=== PATIENT | female | born 1980 | race Caucasian/White ===

== ENCOUNTER 2020-09-04 14:41 | Emergency (ER) | payer MEDICAID, SELFPAY ==
[2020-09-04 15:03] VITALS: BP 127/85; PULSE 72; RESP 18; TEMP 36; O2SAT 98; BMI 27.3
[2020-09-04 16:58] VITALS: BP 116/86; PULSE 86; RESP 18; TEMP 36.6; O2SAT 98; BMI 27.3
[2020-09-04 17:27] VITALS: BP 154/83; PULSE 88; RESP 17; TEMP 36.8; O2SAT 100
--- NOTE | 2020-09-04 18:21 | ED.NEUROSD ---
HPI - Neuro Symptoms/Deficit General Chief Complaint: Neuro Symptoms/Deficit Stated Complaint: ARM NUMBNESS,HBP Time Seen by Provider: 09/04/20 18:21 Source: patient Mode of arrival: ambulatory Limitations: no limitations History of Present Illness HPI Narrative: patient presents with left-sided arm numbness and tingling, is intermittent, and has been occurring over the past year and a half. She called her primary care physician who asked her to come into the emergency department to be evaluated. She is asking for CT scan of her head. She does not describe any headaches, dizziness, lightheadedness, loss of balance, chest pain or pressure, palpitations, shortness of breath, loss of balance, abdominal pain, abdominal distention, dysuria, hematuria, indication of cauda equina, edema, fevers and chills. Onset (ago): year(s) Location: left arm History of same: Yes Severity: mild Quality: weak, numb and tingling Relieving factors: rest Exacerbating factors: none Context: sudden onset On Anticoagulants: No Associated symptoms: denies other symptoms Related Data Allergies Allergy/AdvReac Type Severity Reaction Status Date / Time No Known Allergies Allergy Unverified 08/01/20 16:54 Review of Systems Review of Systems: Constitutional: No Weight loss, No Fever, No Chills, No Night Sweats, No Fatigue, No Malaise ENT/Mouth: No Hearing loss, No Ear Pain, No Nasal Congestion, No Sinus Pain, No Hoarseness, No sore throat, No Rhinorrhea, No Swallowing Difficulty Eyes: No Eye Pain, No Swelling, No Redness, No Foreign Body, No Discharge, No Vision Changes Cardiovascular: No Chest Pain, No SOB, No Dyspnea on Exertion, No Orthopnea, No Edema, No Palpitations Respiratory: No Cough, No Sputum, No Wheezing, No Smoke Exposure, No Dyspnea Gastrointestinal: No Nausea, No Vomiting, No Diarrhea, No Constipation, No abdominal Pain, No Hematochezia, No Melena Genitourinary: no irregular bleeding, No Dysuria, No Urinary Frequency, No Hematuria, No Urinary Incontinence, No Urgency, No Flank Pain, No Urinary Flow Changes, No Hesitancy Musculoskeletal: No joint pain, No Myalgias, No Joint Swelling Skin: No Skin Lesions, No rash Neuro: Positive numbness and tingling to left arm, No Loss of Consciousness, No Dizziness, No Headache Psych: No Anxiety/Panic, No Depression, No SI/HI/AH/VH, No Social Issues, Heme/Lymph: No Bruising, No Bleeding,No Lymphadenopathy Endocrine: No Polyuria, No Polydipsia, No Temperature Intolerance [facility] Past Medical History Attestation statement: The following information was validated with the patient. Medical History Patient denies significant medical history Social History Social History Alcohol intake: never Smoking Status: Never smoker Use of substances other than those prescribed or required for medical reasons: No Advance Directives: No Advance Directives Information Provided: Yes Physical Exam Vital Signs: Vital Signs: Vital Signs Temp Pulse Resp BP Pulse Ox 09/04/20 17:27 98.3 F 88 17 154/83 H 100 09/04/20 16:58 97.8 F 86 18 116/86 98 09/04/20 15:03 96.8 F 72 18 127/85 98 Body Mass Index 27.3 Appearance: Alert. Oriented X3. No acute distress. Head: Normal external exam. Normocephalic. Atraumatic. No Walton signs noted. No raccoon eyes noted Eyes: PERRLA. EOMI. Conjunctiva and sclera normal. Eyelids normal. ENT: TM's Normal. Pharynx normal. Uvula midline. Moist mucous membranes. No trismus noted. No drooling noted. No muffled voice noted. Neck: Normal inspection. Neck supple. No adenopathy. Thyroid Normal. No meningeal signs. No neck mass noted. CVS: Normal heart rate and rhythm. Heart sound normal. No murmurs noted. Pulses equal to all extremities. Respiratory: No respiratory distress. Painless inspiration. Breath sounds normal. No wheezes/rales/rhonchi noted. Chest nontender. No accessory muscle usage noted or decreased air movement noted. Abdomen: Soft and nontender. Bowel sounds normal in all 4 quadrants. No distention noted. No organomegaly noted. No visible injury noted. Back: No CVA tenderness. Full range of motion noted. Skin: Skin warm and dry. Normal skin color. Normal skin turgor. No rashes/lesions/lacerations noted. Extremities: No lower extremity edema. Extremities exhibit normal range of motion. Extremities nontender. Neuro: cranial nerves 2-12 intact, no focal neural deficits, strength 5/5 to all extremities, No motor deficit. No sensory deficit. Reflexes normal. Course Course Course Narrative: patient presents for left arm tingling, is requesting a CT scan. Comprehensive focal neural deficit and NIH stroke scale completed. Patient does not have any focal neural deficits, cranial nerves 2-12 intact, NIH stroke scale is negative. She has been having intermittent left arm numbness and tingling for a year and a half or longer. She did have a full cardiac workup several months ago where they did not find any abnormal rhythms or ACS at that time. She is not complaining of chest pain or pressure or palpitations. At this time, as her physical exam is 100% normal, symptoms have 100% resolved and she has had the symptoms over the past year and a half I do not feel that CT scan is emergent. Plan of care is to have patient discharged home and to have primary care physician order tests that he or she requests on an outpatient basis. Detailed description regarding risks and benefits of CT scan, radiation exposure, and medical necessity discussed with patient. Patient verbalized understanding of and agrees to plan of care to discharge home. historic interpreter utilized for all correspondence. Google translate utilized for discharge instructions. MDM - Neuro Symptoms/Deficit MDM Narrative Medical decision making narrative: Paresthesia Differential Diagnosis Differential diagnosis: Likely carpal tunnel syndrome Medical Records Attestation: I reviewed the patient's medical records. NIH Stroke Scale Internal: Initial- Upon Arrival Level of Consciousness: Alert Level of Consciousness Questions: Answers both questions correctly Level of Consciousness Commands: Performs both tasks correctly Best Gaze: Normal Visual: No visual loss Facial Palsy: Normal Motor Arm (Right): No drift Motor Arm (Left): No drift Motor Leg (Right): No drift Motor Leg (Left): No drift Limb Ataxia: Absent Sensory: Normal Best Language: No aphasia Dysarthia: Normal Extinction and Inattention: No abnormality Score: 0 Discharge Plan Discharge Clinical Impression: Paresthesia and pain of left extremity Patient Disposition: Home, Self-Care Instructions: Paresthesia (ED) Additional Instructions: you were evaluated for numbness and tingling to the left arm. This has been an ongoing condition for over 1 year. Please follow-up with her primary care for a CT scan of the head and neck as an outpatient. Focal neural exam negative, NIH stroke scale is negative. Thank you for choosing this emergency department for evaluation. Please follow-up with primary care physician as needed. Return to the emergency department for any new, concerning, or worsening symptoms. Interventions: ED Discharge Assessment Last Done: 09/04/20 18:32 Discharge Date/Time: 09/04/20 18:40
== END 2020-09-04 18:40 | disposition home or self-care (01) ==
PROVIDERS: Emergency Provider Emergency Medicine; PCP Nurse Practitioner Family
DX: R20.2 Paresthesia of skin (principal); M79.602 Pain in left arm
CPT/HCPCS: 99283; 99284

== ENCOUNTER 2020-10-24 14:15 | Outpatient (REF) | payer MEDICAID, SELFPAY | END 2020-10-24 14:16 | disposition home or self-care (01) | LOC: HO.LAB 14:15 | PROVIDERS: Visit Provider Obstetrics & Gynecology | DX: D06.9 Carcinoma in situ of cervix, unspecified (principal) | CPT/HCPCS: 88142; 88305; 99212 ==

== ENCOUNTER → 2020-11-07 08:53 | Outpatient (BNVA) | payer MEDICAID, SELFPAY | PROVIDERS: Visit Provider Obstetrics & Gynecology | DX: Z76.89 Persons encountering health services in other specified circumstances (principal) ==

== ENCOUNTER 2020-12-05 13:46 | Outpatient (REF) | payer MEDICAID, SELFPAY ==
--- NOTE | 2020-12-05 | MM_ITS ---
EXAMINATION: MM SCREENING DIGITAL BREAST TOMOSYNTHESIS, BILATERAL CLINICAL INFORMATION: Screening. Asymptomatic. No prior breast imaging. Age 40. No known family history breast cancer. The lifetime risk of breast cancer based on the Tyrer-Cuzick Model is 7%. COMPARISON: None (current study represents initial baseline exam). TECHNIQUE: Digital breast tomosynthesis is performed in both the craniocaudal and mediolateral oblique views along with computer-aided detection (CAD). Synthesized 2D images are generated from the tomosynthesis. FINDINGS: There are scattered areas of fibroglandular density (ACR BI-RADS breast composition Category b). There are no significant masses, abnormal calcifications, or other abnormalities. There is a probable small intramammary node mid 8:30 o'clock right breast. The bilateral axilla and skin contours are unremarkable. MM/MM tomosynthesis screening BI IMPRESSION: No mammographic evidence of malignancy. ASSESSMENT: BI-RADS 2: Benign RECOMMENDATION: Routine annual mammography screening. This patient's information was entered into a reminder system with a target due date for their next mammogram.
== END 2020-12-05 13:47 | disposition home or self-care (01) ==
LOC: HO.MAMMO 13:46
PROVIDERS: PCP Nurse Practitioner Family; Visit Provider Nurse Practitioner Family
DX: Z12.31 Encounter for screening mammogram for malignant neoplasm of breast (principal)
CPT/HCPCS: 77063; 77067

== ENCOUNTER 2020-12-12 13:49 | Outpatient (REF) | payer MEDICAID, SELFPAY | END 2020-12-12 13:50 | disposition home or self-care (01) | LOC: HO.LAB 13:49 | PROVIDERS: Visit Provider Internal Medicine | DX: Z20.822 Contact with and (suspected) exposure to COVID-19 (principal) | CPT/HCPCS: 36415; C9803; U0003 ==

== ENCOUNTER 2021-07-19 10:03 | Emergency (ER) | payer MEDICAID, SELFPAY ==
[2021-07-19 10:16] VITALS: BP 148/83; PULSE 109; RESP 16; TEMP 36.9; O2SAT 97; BMI 26.8
--- NOTE | 2021-07-19 12:09 | ED.URI ---
HPI - URI/Sore Throat General Chief Complaint: General Medical Stated Complaint: SWOLLEN GLANDS Time Seen by Provider: 07/19/21 11:42 Source: patient Mode of arrival: ambulatory Limitations: no limitations History of Present Illness MD elicited complaint: sore throat Onset (ago): day(s) (Since yesterday) Consistency: constant and progressively worsening Severity: moderate Able to tolerate fluids by mouth: Yes Exacerbating factors: swallowing Relieving factors: nothing Associated symptoms: chills and ear pain (Right ear pain) Treatments prior to arrival: none Related Data Previous Rx's Medication Instructions Recorded acetaminophen 300 mg-codeine 30 mg 1 tab PO Q8H PRN #10 tab 07/19/21 tablet amoxicillin 875 mg-potassium 1 tab PO BID 10 Days #20 tab 07/19/21 clavulanate 125 mg tablet (Augmentin) dexamethasone 6 mg tablet 12 mg PO DAILY #2 tab 07/19/21 (Decadron) Allergies Allergy/AdvReac Type Severity Reaction Status Date / Time No Known Allergies Allergy Verified 11/07/20 08:54 Review of Systems Review of Systems: Constitutional : No Fever, No Chills, No fatigue, No Malaise ENT/Mouth : Positive right ear pain and sore throat, No runny nose Eyes: No Discharge Cardiovascular : No Chest Pain, No SOB Respiratory : No Cough, No Sputum, No Wheezing, No Smoke Exposure, No Dyspnea Gastrointestinal : No Nausea, No Vomiting, No Diarrhea Genitourinary : No irregular bleeding, No Dysuria, No Urinary Frequency, No Hematuria, No Urinary Incontinence, No Urgency, No Flank Pain, Musculoskeletal : No Myalgia Skin : No rash Neuro : No Headache Yes all other systems are reviewed and are negative [facility] Past Medical History Attestation statement: The following information was validated with the patient. Medical History Patient denies significant medical history Family History Family History Sister Ovarian cancer Social History Social History Alcohol intake: never Advance Directives: No Advance Directives Information Provided: No Patient : No Sexual orientation: Straight/Heterosexual Gender identity: Female Physical Exam Vital Signs: Vital Signs: Last Vital Signs Temp 98.5 F 07/19/21 10:16 Pulse 109 H 07/19/21 10:16 Resp 16 07/19/21 10:16 BP 148/83 H 07/19/21 10:16 Pulse Ox 97 07/19/21 10:16 Body Mass Index 26.8 vital signs have been reviewed as normal and appeared to be correct. Blood pressure normal. Heart rate tachycardic at 109. Respiration rate normal. Temperature normal. Oxygen saturation normal. Appearance: Alert. Oriented X3. No acute distress. Head: Normal external exam. Normocephalic. Atraumatic. Eyes: PERRLA. EOMI. Conjunctiva and sclera normal. Eyelids normal. ENT: EAC normal. Right tympanic membrane mildly erythematous and bulging with fluid in the posterior aspect of the tympanic membranes. Left tympanic membrane within normal limits. Posterior pharynx erythematous with scattered exudate bilaterally on both tonsils. Both tonsils are inflamed. Uvula midline. Moist mucous membranes. No trismus noted. No drooling noted. No muffled voice noted. Not consistent with peritonsillar abscess/pharyngeal abscess/dental abscess. Neck: Normal inspection. Neck supple. FROM. Bilateral mild cervical lymphadenopathy. Thyroid Normal. No meningeal signs. No neck mass noted. CVS: Normal heart rate and rhythm. Heart sound normal. Pulses normal throughout. No murmurs/rales/gallops. Respiratory: No respiratory distress. Painless inspiration. Breath sounds normal. No wheezes/rales/rhonchi noted. Chest nontender. No accessory muscle usage noted or decreased air movement noted. Back: Full range of motion noted. No rashes/lesion/induration/fluctuance or signs of infection noted. Skin: Skin warm and dry. Normal skin color. Normal skin turgor. No rashes/lesions/lacerations noted. Extremities: No lower extremity edema. Extremities exhibit normal range of motion. Extremities nontender. Neuro: Oriented X 3. No motor deficit. No sensory deficit. Reflexes normal. Normal steady gait. No focal neuro deficits noted. Course Course Course Narrative: 41-year-old female presenting to the ED with complaints of right-sided sore throat worse with swallowing which radiates to her right ear. Denies recent travel or sick contacts. Is not vaccinated for COVID. On exam patient noted to have exudate and erythema to bilateral tonsils. Uvula is midline. With mild bilateral cervical lymphadenopathy. No trismus or drooling noted. Patient is tolerating secretions well. Not consistent with peritonsillar abscess/pharyngeal abscess/dental abscess. Rapid strep obtained although came out negative although will treat due to patient's symptoms and exam. COVID swab along with RSV and flu are still pending will DC home with treatment for bacterial pharyngitis and will call her back by today with negative or positive results for COVID. Patient understands agrees with this plan. MDM - URI/Sore Throat Medical Records Attestation: I reviewed the patient's medical records. Lab Data Attestation: I reviewed the patient's lab results. Labs: Lab Results 07/19/21 07/19/21 Range/Units 11:58 11:58 Coronavirus (PCR) NEGATIVE (Negative) Influenza Type A (PCR) NEGATIVE (Negative) Influenza Type B (PCR) NEGATIVE (Negative) RSV RNA Qual (PCR) NEGATIVE (Negative) S. pyogenes GrpA MATT Negative (Negative) Discharge Plan Discharge Clinical Impression: Acute bacterial pharyngitis Patient Disposition: Home, Self-Care Instructions: Pharyngitis (ED) Additional Instructions: Bas?ndonos en mariel s?ntomas e historial, hemos enviado un COVID-19. Aunque leal RESULTADO EST? PENDIENTE en sarahi momento. Los RESULTADOS deben regresar dentro de las 72 horas. En sarahi momento se le contactar? con resultados NEGATIVOS O POSITIVOS. -Por favor, espere hasta que nos pongamos en contacto con usted para obtener mariel resultados. Si leal COVID positivo, deber? permanecer sin trabajo cricket al menos 7-10 d?as Based on your symptoms and history we have sent a COVID-19. Although your RESULT IS PENDING at this time. RESULTS should return within 72 hours. At this time you will be contacted with either NEGATIVE OR POSITIVE results. -Please wait until we contact you for your results. If your COVID positive you will need to stay out of work for at least 7-10 days Prescriptions: New amoxicillin-pot clavulanate [Augmentin] 875-125 mg tablet 1 tab PO BID 10 Days Qty: 20 RF: 0 dexamethasone [Decadron] 6 mg tablet 12 mg PO DAILY Qty: 2 RF: 0 acetaminophen-codeine 300-30 mg tablet 1 tab PO Q8H PRN (Reason: pain) Qty: 10 RF: 0 Referrals: [facility] [Primary Care Provider] - 2 days (your pcp) Stand Alone Forms: Work/School Release Interventions: ED Discharge Assessment Last Done: 07/19/21 12:47 Discharge Date/Time: 07/19/21 12:47 Print Language: Bulgarian
[2021-07-19 12:12] LABS: IDNOW Serial# 9DD0AD1C; Strep A Nucleic Acid Negative (Negative)
[2021-07-19 12:47] LABS: Influenza A PCR NEGATIVE (Negative); Influenza B PCR NEGATIVE (Negative); Resp Syncy Virus RNA Qual PCR NEGATIVE (Negative); SARS COV2 PCR INHOUSE NEGATIVE (Negative)
== END 2021-07-19 12:47 | disposition home or self-care (01) ==
PROVIDERS: Physician Assistant Medical; Emergency Provider Student in an Organized Health Care Education/Training Program
DX: J02.9 Acute pharyngitis, unspecified (principal); R00.0 Tachycardia, unspecified; Z20.822 Contact with and (suspected) exposure to COVID-19
CPT/HCPCS: 0241U; 36415; 87651; 99283

== ENCOUNTER 2022-07-02 08:59 | Emergency (ER) | payer MEDICAID, SELFPAY ==
[2022-07-02 09:21] VITALS: BP 134/77; PULSE 76; RESP 16; TEMP 36.6; O2SAT 98; BMI 28.5
--- NOTE | 2022-07-02 09:25 | ED_ITS ---
HPI - Extremity Problem General Chief complaint: Extremity Injury, Upper Stated complaint: L shoulder pain Time Seen by Provider: 07/02/22 09:25 Source: patient Mode of arrival: ambulatory Limitations: no limitations History of Present Illness HPI Narrative: 42-year-old female who presents emergency department for evaluation of left shoulder pain and difficulty lifting her left arm over her head secondary to pain. The patient states that yesterday morning she woke up and had some pain in her left shoulder. She states that she has been running and riding a bike and she is not sure if she injured her shoulder but she denied any trauma. 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 She states that she was having difficulty using her arm but was able who finish her shift. This morning, when she woke up she had pain in her left shoulder. She states she has no pain unless she moves her shoulder, the pain is then sharp and 8/10. She states that she had difficulty lifting her arm above her head to calm her hair secondary to the pain. She denied any numbness or weakness of her left arm. MD Complaint: extremity pain Onset (ago): day(s) (2) Pain Consistency: other (Only present with movement) Location: left and upper extremity Severity scale (1-10): 8 Quality: aching Radiation: none Relieving factors: nothing Exacerbating factors: range of motion Associated symptoms: denies other symptoms Related Data Previous Rx's Medication Instructions Recorded acetaminophen 300 mg-codeine 30 mg 1 tab PO Q8H PRN pain #10 tabs 07/19/21 tablet amoxicillin 875 mg-potassium 1 tab PO BID 10 days #20 tabs 07/19/21 clavulanate 125 mg tablet (Augmentin) dexamethasone 6 mg tablet 12 mg PO DAILY Inflammation #2 tabs 07/19/21 (Decadron) acetaminophen 500 mg tablet 1,000 mg PO Q6H PRN fever or pain 07/02/22 (Tylenol Extra Strength) #20 tabs ibuprofen 600 mg tablet 600 mg PO Q6H PRN pain #30 tabs 07/02/22 Allergies Allergy/AdvReac Type Severity Reaction Status Date / Time No Known Allergies Allergy Verified 11/07/20 08:54 [facility] Past Medical History Medical History Patient denies significant medical history Family History Family History Sister Ovarian cancer Social History Social History Alcohol intake: never Advance Directives: No Advance Directives Information Provided: No Sexual orientation: Straight/Heterosexual Gender identity: Female Physical Exam Vital Signs: Vital Signs: Last Vital Signs Temp 97.9 F 07/02/22 09:21 Pulse 76 07/02/22 09:21 Resp 16 07/02/22 09:21 BP 134/77 07/02/22 09:21 Pulse Ox 98 07/02/22 09:21 O2 Del Method 07/02/22 09:21 BMI result Body Mass Index 28.5 Discharge Plan Discharge Clinical Impression: Acute pain of left shoulder, Left shoulder tendinitis Patient Disposition: Home, Self-Care Instructions: Rotator Cuff Tendinitis (ED) Additional Instructions: Left shoulder rotator cuff tendinitis Discharge Instructions: Take Motrin (ibuprofen) 600 mg pills, 1 pills every 6 hours as needed for pain. Take Tylenol (acetaminophen) 500 mg pills, 2 pills every 6 hours as needed for pain. Apply ice for 15 minutes to the area that hurts on your shoulder 4-6 times a day to help reduce the pain in your shoulder. Please return to the Emergency Department or see your doctor immediately if your symptoms get worse or if you develop any new symptoms that are concerning you. Follow up with your doctor in 2 day. Please read the other printed discharge instructions on shoulder tendinitis/ pain. Please see the work note Prescriptions: New acetaminophen [Tylenol Extra Strength] 500 mg tablet 1,000 mg PO Q6H PRN (Reason: fever or pain) Qty: 20 0RF ibuprofen 600 mg tablet 600 mg PO Q6H PRN (Reason: pain) Qty: 30 0RF No Action amoxicillin-pot clavulanate [Augmentin] 875-125 mg tablet 1 tab PO BID 10 Days Qty: 20 0RF dexamethasone [Decadron] 6 mg tablet 12 mg PO DAILY Qty: 2 0RF acetaminophen-codeine 300-30 mg tablet 1 tab PO Q8H PRN (Reason: pain) Qty: 10 0RF Stand Alone Forms: Work/School Release
== END 2022-07-02 09:54 | disposition home or self-care (01) ==
PROVIDERS: Emergency Provider Emergency Medicine Emergency Medical Services
DX: M25.512 Pain in left shoulder (principal); M77.8 Other enthesopathies, not elsewhere classified
CPT/HCPCS: 99283

== ENCOUNTER 2022-12-09 11:10 | Outpatient (REF) | payer MEDICAID, SELFPAY ==
[2022-12-09 15:20] LABS: CT PCR NOT DETECTED (Not Detect.); NG PCR NOT DETECTED (Not Detect.)
[2022-12-10 09:01] LABS: BV Int Neg Control Negative (Negative); BV Int Pos Control Positive (Positive)
[2022-12-11 17:58] LABS: HPV mRNA E6/E7 rflx Not Detected (Not Detected)
== END 2022-12-09 11:11 | disposition home or self-care (01) ==
LOC: HO.LNP 11:10
PROVIDERS: PCP Nurse Practitioner Family; Visit Provider Obstetrics & Gynecology
DX: Z01.419 Encounter for gynecological examination (general) (routine) without abnormal findings (principal); Z11.51 Encounter for screening for human papillomavirus (HPV); B37.31 Acute candidiasis of vulva and vagina
CPT/HCPCS: 0353U; 87480; 87510; 87624; 87660; 88142

== ENCOUNTER 2023-02-22 12:47 | Outpatient (REF) | payer MEDICAID, SELFPAY ==
--- NOTE | ~2023-02-22 | MM_ITS ---
EXAMINATION: MM SCREENING DIGITAL BREAST TOMOSYNTHESIS, BILATERAL CLINICAL INFORMATION: Screening. Asymptomatic. The lifetime risk of breast cancer based on the Tyrer-Cuzick Model is 11%. COMPARISON: Mammography: 12/05/2020 (baseline). TECHNIQUE: Digital breast tomosynthesis is performed in both the craniocaudal and mediolateral oblique views along with computer-aided detection (CAD). Synthesized 2D images are generated from the tomosynthesis. FINDINGS: There are scattered areas of fibroglandular density (ACR BI-RADS breast composition Category b). Pattern is similar to prior exam and there is no significant mass or architectural abnormality or abnormal calcifications. Again, there is probable intramammary node central outer right breast and small circumscribed nodule central right breast. The axilla and skin contours are unremarkable. No significant changes. MM/MM tomosynthesis screening BI IMPRESSION: No mammographic evidence of malignancy. ASSESSMENT: BI-RADS 2: Benign RECOMMENDATION: Routine annual mammography screening. This patient's information was entered into a reminder system with a target due date for their next mammogram.
== END 2023-02-22 12:48 | disposition home or self-care (01) ==
LOC: HO.MAMMO 12:47
PROVIDERS: PCP Nurse Practitioner Family; Visit Provider Nurse Practitioner Family
DX: Z12.31 Encounter for screening mammogram for malignant neoplasm of breast (principal)
CPT/HCPCS: 77063; 77067

== ENCOUNTER 2023-03-07 12:44 | Emergency (ER) | payer MEDICAID, SELFPAY ==
--- NOTE | ~2023-03-07 | XR_ITS ---
EXAMINATION: XR SHOULDER, RIGHT CLINICAL INFORMATION: Right shoulder pain. COMPARISON: None available. TECHNIQUE: Three views of the right shoulder. FINDINGS: The bones and soft tissues are normal. No fracture. Glenohumeral and acromioclavicular alignment is anatomic with normal joint space. No abnormal soft tissue calcifications. XR/XR shoulder RT min 2V IMPRESSION: Unremarkable right shoulder.
[2023-03-07 13:17] VITALS: BP 149/74; PULSE 82; RESP 19; TEMP 36.6; O2SAT 98; BMI 28.7
--- NOTE | 2023-03-07 13:18 | ED.GENADULT ---
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 but does not recall any specific injure She denies numbness weakness or tingling, there are no other joints that are painful, denies any rash <MARIA ELENA Branch - Last Filed: 03/07/23 19:22> Related Data Home medications: Previous Rx's Medication Instructions Recorded terconazole 0.8 % vaginal cream 1 appful vaginal BEDTIME 3 days 12/09/22 #20 grams acetaminophen 500 mg tablet 1,000 mg PO TID PRN pain #30 tabs 03/07/23 ibuprofen 600 mg tablet 600 mg PO Q6H PRN pain #20 tabs 03/07/23 <Thomas Madrid - Last Filed: 03/07/23 13:18> Allergies/adverse reactions: Allergies Allergy/AdvReac Type Severity Reaction Status Date / Time No Known Allergies Allergy Verified 12/09/22 11:23 <Thomas Madrid - Last Filed: 03/07/23 13:18> [facility] Past Medical History Source: nursing notes reviewed <MARIA ELENA Branch - Last Filed: 03/07/23 19:22> Medical History: Medical History YANELI III (cervical intraepithelial neoplasia grade III) with severe dysplasia Patient denies significant medical history <Thomas Madrid - Last Filed: 03/07/23 13:18> Surgical History: Surgical History H/O LEEP H/O tubal ligation <Thomas aMdrid - Last Filed: 03/07/23 13:18> Family History Family History: Family History Sister Ovarian cancer <Thomas Madrid - Last Filed: 03/07/23 13:18> Social History Social History: Social History Alcohol intake: never Advance Directives: No Advance Directives Information Provided: No Sexual orientation: Straight/Heterosexual Gender identity: Female <Thomas ArevaloJuanaEdwin - Last Filed: 03/07/23 13:18> Physical Exam ED Vital Signs: Vital Signs - 24 hr 03/07/23 13:17 Temperature 98 F Pulse Rate 82 Respiratory Rate 19 Blood Pressure 149/74 H Pulse Oximetry 98 Oxygen Delivery Method Room Air BMI result Body Mass Index 28.7 <Thomas Madrid - Last Filed: 03/07/23 13:18> Vital Signs - 24 hr 03/07/23 13:17 Temperature 98 F Pulse Rate 82 Respiratory Rate 19 Blood Pressure 149/74 H Pulse Oximetry 98 Oxygen Delivery Method Room Air BMI result Body Mass Index 28.7 <MARIA ELENA Branch - Last Filed: 03/07/23 19:22> General appearance no acute distress Head is normocephalic atraumatic Neck is supple nontender The right trapezius is nontender Chest wall nontender, no respiratory distress Extremities the right shoulder had tenderness lateral and anterior shoulder, no posterior tenderness, range of motion was mildly limited by discomfort on abduction extension and external rotation, there was no redness warmth or swelling to the joint color was normal and neurovascular intact distal Other extremities normal <MARIA ELENA Branch - Last Filed: 03/07/23 19:22> Course Course Course Narrative: 43-year-old female presents for evaluation of right shoulder pain. 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 X-ray ordered to evaluate for calcific tendinitis versus arthritis of the right shoulder. <Thomas ArevaloKeny - Last Filed: 03/07/23 13:18> 43-year-old female presents for evaluation of right shoulder pain. 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 X-ray ordered to evaluate for calcific tendinitis versus arthritis of the right shoulder. Shoulder x-ray was normal Exam is consistent with strain of right shoulder, possible underlying muscle or tendon abnormality so patient will follow with orthopedist if not better and well-appearing patient is discharged, no sign of any infection or acute emergency in the right shoulder <MARIA ELENA Branch - Last Filed: 03/07/23 19:22> Discharge Plan Discharge Clinical Impression: Right shoulder strain <Thomas Madrid - Last Filed: 03/07/23 13:18> Patient Disposition: Home, Self-Care <Thomas Madrid - Last Filed: 03/07/23 13:18> Additional Instructions: X-ray of the right shoulder was normal On exam there is likely strain or irritation of muscles and tendons so follow with orthopedist if needed Use Motrin and Tylenol as needed Return any time any worse condition or any concerns <Thomas Madrid - Last Filed: 03/07/23 13:18> Prescriptions: New ibuprofen 600 mg tablet 600 mg PO Q6H PRN (Reason: pain) Qty: 20 0RF acetaminophen 500 mg tablet 1,000 mg PO TID PRN (Reason: pain) Qty: 30 0RF No Action terconazole 0.8 % cream 1 appful vaginal BEDTIME 3 Days Qty: 20 0RF <Thomas Madrid - Last Filed: 03/07/23 13:18> Referrals: Sushant Spencer MD [Physician] - (Right shoulder pain) <Thomas Madrid - Last Filed: 03/07/23 13:18> Stand Alone Forms: Work/School Release <Thomas Madrid - Last Filed: 03/07/23 13:18> Interventions: ED Discharge Assessment Last Done: 03/07/23 14:09 <Thomas Madrid - Last Filed: 03/07/23 13:18> Discharge Date/Time: 03/07/23 14:10 <Thomas Madrid - Last Filed: 03/07/23 13:18>
== END 2023-03-07 14:10 | disposition home or self-care (01) ==
PROVIDERS: Emergency Provider Emergency Medicine Emergency Medical Services; PCP Nurse Practitioner Family
DX: S46.911A Strain of unspecified muscle, fascia and tendon at shoulder and upper arm level, right arm, initial encounter (principal); X58.XXXA Exposure to other specified factors, initial encounter; Y93.9 Activity, unspecified; Y92.9 Unspecified place or not applicable; Y99.9 Unspecified external cause status
CPT/HCPCS: 73030; 99283

== ENCOUNTER 2023-03-17 09:53 | Emergency (ER) | payer MEDICAID, SELFPAY ==
[2023-03-17 10:35] VITALS: BP 137/81; PULSE 82; RESP 18; TEMP 36.6; O2SAT 98; BMI 28.3
--- NOTE | 2023-03-17 11:18 | ED.EXTPRO ---
HPI - Extremity Problem General Chief complaint: Extremity Problem Stated complaint: R shoulder pain Time Seen by Provider: 03/17/23 11:17 Source: patient, RN notes reviewed and old records reviewed Mode of arrival: ambulatory History of Present Illness HPI Narrative: 43-year-old female with a past medical history of cervical neoplasia, presenting to the ED complaining of continued/worsening right shoulder pain x 2 weeks. 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 Patient was recently seen and treated in our ED on 03/07 for similar symptoms had x-ray that was unremarkable, discharged home on ibuprofen and acetaminophen without relief. Admits has an orthopedic appointment at the end of this month. Denies more recent injury/trauma or fall, numbness, tingling, weakness, CP/SOB MD Complaint: joint pain Onset (ago): week(s) Related Data Previous Rx's Medication Instructions Recorded terconazole 0.8 % vaginal cream 1 appful vaginal BEDTIME 3 days 12/09/22 #20 grams acetaminophen 500 mg tablet 1,000 mg PO TID PRN pain #30 tabs 03/07/23 ibuprofen 600 mg tablet 600 mg PO Q6H PRN pain #20 tabs 03/07/23 cyclobenzaprine 5 mg tablet 5 mg PO Q8H PRN pain (scale score 03/17/23 7-10) 5 days #14 tabs Allergies Allergy/AdvReac Type Severity Reaction Status Date / Time No Known Allergies Allergy Verified 03/17/23 10:34 Review of Systems Review of Systems: Constitutional: No Fever, No Chills ENT/Mouth: No Ear Pain, No Nasal Congestion, No sore throat, No Rhinorrhea, No Swallowing Difficulty Cardiovascular: No Chest Pain, No SOB Respiratory: No Cough, No Sputum, No Wheezing Genitourinary: No Dysuria, No Urinary Frequency, No Hematuria, No Flank Pain Musculoskeletal: + joint pain, No Myalgias, No Joint Swelling Skin: No Skin Lesions, No rash Neuro: No Weakness, No Numbness, No Paresthesias Yes all other systems are reviewed and are negative Constitutional: Constitutional: Reports as per [facility] Past Medical History Attestation statement: The following information was validated with the patient. Source: old records reviewed Medical History YANELI III (cervical intraepithelial neoplasia grade III) with severe dysplasia Patient denies significant medical history Surgical History H/O LEEP H/O tubal ligation Family History Family History Sister Ovarian cancer Social History Social History Alcohol intake: never Advance Directives: No Advance Directives Information Provided: No Sexual orientation: Straight/Heterosexual Gender identity: Female Physical Exam Vital Signs: Vital Signs: Last Vital Signs Temp 98 F 03/17/23 10:35 Pulse 82 03/17/23 10:35 Resp 18 03/17/23 10:35 BP 137/81 03/17/23 10:35 Pulse Ox 98 03/17/23 10:35 O2 Del Method Room Air 03/17/23 10:35 BMI result Body Mass Index 28.3 Const: General: cooperative, healthy appearing and no acute distress Orientation/consciousness: patient oriented x3 Limitations: no limitations HEENT: Head: Yes normal to inspection and Yes atraumatic Ears: hearing grossly normal bilaterally General nose exam: Normal external nose present Face and sinus: Yes normal facial exam Eyes: General: appearance normal, both eyes and all related structures EOM: EOMs intact bilaterally Neck: Neck: Yes normal visual inspection and Yes no meningeal signs Resp: Effort & Inspection: normal respiratory effort and no respiratory distress Cardio: Rate: regular rate Peripheral pulses: radial pulses present and ulnar radial pulses present Skin: Rashes: no rashes Wounds: no wounds Neuro: General: patient oriented x3, tone normal and no meningeal signs Gait exam (Neuro): Normal gait present Extrem: Other: Right shoulder without noted deformity. + tenderness to anterior lateral aspect. Mild limited ABduction and internal rotation secondary to pain. Neurovascular intact distally. No erythema/warmth or crepitus General: Yes normal to inspection Medical Decision Making Medical Decision Making MDM Narrative: 43-year-old female with a past medical history of cervical neoplasia, presenting to the ED complaining of continued/worsening right shoulder pain x 2 weeks. On exam vital signs stable, NAD, nontoxic appearing with physical exam as noted above. Concern for tendinitis vs possible rotator cuff or ligamental injury. Low suspicion for fracture. No evidence of septic joint/arthritis Will add Flexeril to patient's regimen, encourage close PCP/orthopedic follow-up, in may need MRI in the future Plan: Pain medication, PCP/orthopedic follow-up Please refer to course for remaining clinical decision making, interpretation of labs/imaging results, and discussions with consultants and/or family members. Differential Diagnosis Differential Diagnoses: The differential diagnosis associated with the presentation includes As above Lab Data MDM Lab Attestation statement: I reviewed the patient's lab results. Radiology Impression Discussion of test interpretation with radiology: I have reviewed the radiologist's reading. External Record Review External record reviewed: Inpatient record, Office record, Outpatient record, Prior outpatient labs, Prior outpatient radiology, Primary care record and Outside ED record Tests considered The following testing was considered but not selected: As above Discharge Plan Discharge Clinical Impression: Shoulder tendonitis Patient Disposition: Home, Self-Care Instructions: Rotator Cuff Tendinitis (ED) Additional Instructions: You likely have tendinitis, or internal injury. You need to follow-up with her doctor and Orthopedics Continue taking ibuprofen and Tylenol In addition Flexeril as a muscle relaxer, take at night as it makes you drowsy, do not drive, drink alcohol or operate machinery while taking If pain becomes unbearable, you have weakness or chest pain return to the ED Es probable que tenga tendinitis o lesi?n interna. Debe hacer un seguimiento con leal m?dico y ortopedia. Contin?e tomando ibuprofeno y Tylenol Adem?s, Flexeril kiko relajante muscular, t?luna por la noche ya que le provoca somnolencia, no conduzca, fabiola alcohol ni maneje maquinaria mientras drake Si el dolor se vuelve insoportable, tiene debilidad o dolor en el pecho, regrese al servicio de urgencias. Prescriptions: New cyclobenzaprine 5 mg tablet 5 mg PO Q8H PRN (Reason: pain (scale score 7-10)) 5 Days Qty: 14 0RF No Action ibuprofen 600 mg tablet 600 mg PO Q6H PRN (Reason: pain) Qty: 20 0RF acetaminophen 500 mg tablet 1,000 mg PO TID PRN (Reason: pain) Qty: 30 0RF terconazole 0.8 % cream 1 appful vaginal BEDTIME 3 Days Qty: 20 0RF [place]: [facility] [facility] [place] Group] Sophie Bettencourt NP [Primary Care Provider] - 2 days Stand Alone Forms: Work/School Release Interventions: ED Discharge Assessment Last Done: 03/17/23 12:16 Discharge Date/Time: 03/17/23 12:17 Print Language: Arabic
== END 2023-03-17 12:17 | disposition home or self-care (01) ==
PROVIDERS: Emergency Provider Student in an Organized Health Care Education/Training Program; PCP Nurse Practitioner Family
DX: M25.511 Pain in right shoulder (principal); M75.91 Shoulder lesion, unspecified, right shoulder
CPT/HCPCS: 99282; 99283

== ENCOUNTER → 2023-04-01 08:38 | Outpatient (BNVA) | payer MEDICAID, SELFPAY | PROVIDERS: PCP Nurse Practitioner Family; Visit Provider Physician Assistant | DX: M75.101 Unspecified rotator cuff tear or rupture of right shoulder, not specified as traumatic (principal) | CPT/HCPCS: 99202 ==

== ENCOUNTER → 2023-05-13 15:07 | Outpatient (BNVA) | payer MEDICAID, SELFPAY | PROVIDERS: Visit Provider Physician Assistant | DX: M75.101 Unspecified rotator cuff tear or rupture of right shoulder, not specified as traumatic (principal) | CPT/HCPCS: 99212 ==

== ENCOUNTER 2023-06-01 15:00 | Outpatient (RCR) | payer MEDICAID, SELFPAY ==
--- NOTE | 2023-05-03 15:43 | MHC.PT.EP ---
[facility] [place] Office [place] Office [place] Office [address] [phone] F: [phone] F: [phone] F: [phone] F: [phone] Physical Therapy Plan of Care Date of Evaluation: Date of Surgery: N/A Diagnosis: Unspecified rotator cuff tear or rupture of right shoulder, not specified as traumatic Painful arc syndrome of right shoulder Assessment: Pt is a pleasant 43yo F who presents to PT with R shoulder pain. She presents to PT with current impairments in pain, decreased ROM, decreased UE strength, and impaired posture. She had a positive Hawkin's Colton test and a positive Empty can test with reproduction of symptoms. She is limited functionally by reaching, over head ADLs, working, lifting, and sleeping. She is an excellent candidate for skilled PT in order to address current impairments to facilitate return to PLOF. She is recommended to be seen 2x/week for 4 weeks and will be reassessed at that time. Frequency and Duration: The patient will be seen 2x/week for 4 weeks Short Term Goals: Pt will be I with HEP to promote self management of symptoms Pt will demonstrate improvements in postural awareness throughout the day Group Home Goals: Pt will demonstrate full strength all planes of R shoulder with minimal to no pain Pt will demonstrate improvements in function as evidenced by statistically significant improvement in SPADI outcome measure Treatment Plan: Modalities to reduce pain, spasms and effusion. Manual therapy to restore motion and function. Therapeutic exercise to improve strength and flexibility. Neuromuscular re-education for posture and balance. Therapeutic activities to return to functional activities of daily living. Electronically signed by: Ernestine Gutierrez, PT, DPT Please sign and return to therapist. Thank you for your referral.
--- NOTE | 2023-06-03 14:53 | MHC.PT.DC ---
[facility] [place] Office [place] Office [place] Office [address] [phone] F: [phone] F: [phone] F: [phone] F: [phone] Physical Therapy Discharge Report Diagnosis: Unspecified rotator cuff tear or rupture of right shoulder, not specified as traumatic Painful arc syndrome of right shoulder Date of Surgery: N/A Date of Evaluation: 05/03/23 Date of Discharge: 06/03/23 Treatments to Date: 7 Cancellations to Date: No Shows to Date: Discharge Status: Achieved Goals Improved Function Independent with HEP Discharge Summary: Pt was seen for PT from 05/03/23-06/01/23. She made excellent progress since SOC. She has improved ROM and strength and has had a decrease in pain. She is I with HEP and is able to perform with proper mechanics. She has theraband at home for HEP. Pt is being D/C from skilled PT at this time. Electronically signed by: Ernestine Gutierrez, PT, DPT Please sign and return to therapist. Thank you for your referral.
== END 2023-06-03 14:53 | disposition home or self-care (01) ==
LOC: HO.PT 15:00
PROVIDERS: PCP Nurse Practitioner Family; Visit Provider Physician Assistant
DX: M75.101 Unspecified rotator cuff tear or rupture of right shoulder, not specified as traumatic (principal)
CPT/HCPCS: 97110; 97161

== ENCOUNTER 2023-12-31 08:28 | Emergency (ER) | payer MEDICAID, SELFPAY ==
[2023-12-31 08:33] VITALS: PULSE 96; RESP 16; TEMP 36.1; O2SAT 96; BMI 29.1
--- NOTE | 2023-12-31 08:55 | ED_ITS ---
HPI - General Adult General Chief complaint: Upper Respiratory Symptoms Stated complaint: sore throat, ear infection ? Time Seen by Provider: 12/31/23 08:53 Source: patient Mode of arrival: ambulatory Limitations: no limitations History of Present Illness HPI narrative: Patient is a 43-year-old female presenting to the emergency department with complaint of sore throat, bilateral ear pain, worse on the left for the past week and nonproductive cough. She reports fevers for the 1st 3 days, none since. She denies any chest pain, dyspnea or palpitations. Denies any abdominal pain, nausea, vomiting, diarrhea. MD complaint: Sore throat, ear pain Onset (ago): day(s) Severity: moderate Quality: burning (Throat) and aching (Left ear) Pain Consistency: constant Associated symptoms: cough and fever/chills Related Data Previous Rx's Medication Instructions Recorded terconazole 0.8 % vaginal cream 1 appful vaginal BEDTIME 3 days 12/09/22 #20 grams acetaminophen 500 mg tablet 1,000 mg (2 x 500 mg) PO TID PRN 03/07/23 pain #30 tabs ibuprofen 600 mg tablet 600 mg PO Q6H PRN pain #20 tabs 03/07/23 cyclobenzaprine 5 mg tablet 5 mg PO Q8H PRN pain (scale score 03/17/23 7-10) 5 days #14 tabs amoxicillin 875 mg tablet 875 mg PO BID #14 tabs 12/31/23 Allergies Allergy/AdvReac Type Severity Reaction Status Date / Time No Known Allergies Allergy Verified 05/13/23 15:10 Review of Systems Review of Systems: As per HPI. 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 Blood pressure normal. Heart rate normal. Respiratory rate normal. Temperature normal. Oxygen saturation normal. Const General: cooperative, healthy appearing and no acute distress Orientation/consciousness: oriented to person, oriented to place, oriented to time and patient oriented x3 Limitations: no limitations HENMT Head: Yes normocephalic and Yes atraumatic Ears: external ears normal, TM normal on the right, EAC's normal and TM abnormal bulging on the left, wth effusion serous on the left and erythematous on the lef t General nose exam: Normal external nose present, Normal nasal mucous membranes and turbinates present and Normal septum present Face and sinus: Yes face symmetric Mouth: oropharynx normal, moist mucous membranes and no trismus Throat: Yes uvula midline, Yes abnormal tonsil (erythema without edema or e xudate) and No uvular edema Eyes Pupils: Equal, round and reactive pupils present Neck Neck: Yes normal visual inspection and Yes supple Lymphatic: no lymphadenopathy noted Resp Effort & Inspection: normal respiratory effort and able to speak in complete sentences Auscultation: clear to auscultation bilaterally Cardio Rate: regular rate Rhythm: regular rhythm Heart sounds: S1 normal heart sound present and S2 normal heart sound present GI Palpation (GI): Soft to palpation and nontender Auscultation: normoactive bowel sounds General: Yes no CVA tenderness Back/Spine/Pelvis Back: no CVA tenderness Skin General skin exam: elasticity normal and turgor normal Neuro General: oriented to person, oriented to place, oriented to time, patient oriented x3, moves all extremities, no focal motor deficits and CN's II-XI intact bilaterally Cranial nerves: Yes Equal, round and reactive pupils present Cognition (Neuro): normal cognition Extrem General: Yes full ROM, Yes no pedal edema and Yes no calf tenderness Psych Mental Status: mental status grossly normal Affect: normal affect Thought process: Normal thought process present Medical Decision Making Medical Decision Making MDM Narrative: Patient is a 43-year-old female presenting to the emergency department with complaint of sore throat, bilateral ear pain, worse on the left for the past week and nonproductive cough. On exam patient is awake, A+Ox3, VS WNL, afebrile, normal neurological exam without focal deficits, physical exam findings as above. Given reported symptoms and physical exam findings, initial differential includes otitis media, viral illness, flu, covid, strep pharyngitis. Swabs for strep, flu, and COVID all negative, patient updated on results. Physical exam findings consistent with otitis media of left ear, will treat with antibiotics. Instructed patient to follow-up with primary care provider. Advised patient to ensure adequate rest, adequate fluid intake, alter saji Tylenol and ibuprofen as needed for fever or discomfort. Warm salt water gargle several times daily. Return precautions discussed at bedside. Patient verbalized understanding of and agreement with plan. Differential Diagnosis Differential Diagnoses: The differential diagnosis associated with the presentation includes As per MDM. Lab Data [facility] Lab Attestation statement: I reviewed the patient's lab results. As per [facility]. Labs: Lab Results 12/31/23 Range/Units 08:42 COVID-19 ([facility]) Negative (Negative) COVID-19 Clin Com See Note Influenza Type A (MATT) Negative (Negative) Influenza Type B (MATT) Negative (Negative) Influenza A & B Note See Note S. pyogenes GrpA MATT Negative (Negative) External Record Review External record reviewed: Inpatient record, Office record and Outpatient record Prescription Management I considered prescription management with: Antibiotic Discharge Plan Discharge Clinical Impression: Pharyngitis, Viral infection Otitis media Qualifiers: Chronicity: acute Laterality: left Patient Disposition: Home, Self-Care Instructions: Pharyngitis (ED), Ear Infection (ED), Viral Syndrome (ED) Additional Instructions: You were evaluated in the emergency department today for ear pain, sore throat. Your evaluation suggests that your pain is due to an ear infection. Please take your prescribed antibiotics as directed for the full course of the medication. Please follow up with your primary care provider within two days. Return to the emergency department if you experience hearing loss, discharge from your ear, headaches, fevers, recurrent vomiting, or any other concerning symptoms. Prescriptions: New amoxicillin 875 mg tablet 875 mg PO BID Qty: 14 0RF No Action ibuprofen 600 mg tablet 600 mg PO Q6H PRN (Reason: pain) Qty: 20 0RF acetaminophen 500 mg tablet 1,000 mg PO TID PRN (Reason: pain) Qty: 30 0RF cyclobenzaprine 5 mg tablet 5 mg PO Q8H PRN (Reason: pain (scale score 7-10)) 5 Days Qty: 14 0RF terconazole 0.8 % cream 1 appful vaginal BEDTIME 3 Days Qty: 20 0RF
[2023-12-31 09:05] LABS: IDNOW Serial# 08D9AD1C; Strep A Nucleic Acid Negative (Negative)
[2023-12-31 09:09] LABS: COVID-19 Test Negative (Negative); IDNOW Serial# 152EDE1D; IDNOW Serial# 9DB6401D; Influenza A Negative (Negative); Influenza B2 Negative (Negative)
[2023-12-31 09:12] VITALS: BP 135/84
== END 2023-12-31 10:50 | disposition home or self-care (01) ==
PROVIDERS: Emergency Provider Student in an Organized Health Care Education/Training Program
DX: B34.9 Viral infection, unspecified (principal); H66.92 Otitis media, unspecified, left ear; J02.9 Acute pharyngitis, unspecified; Z11.52 Encounter for screening for COVID-19; H92.03 Otalgia, bilateral; R05.9 Cough, unspecified
CPT/HCPCS: 87502; 87635; 87651; 99282; 99283

== ENCOUNTER 2024-01-27 14:37 | Outpatient (REF) | payer MEDICAID, SELFPAY ==
[2024-02-05 09:18] LABS: HPV mRNA E6/E7 rflx Not Detected (Not Detected)
== END 2024-01-27 14:38 | disposition home or self-care (01) ==
LOC: HO.LNP 14:37
PROVIDERS: Visit Provider Obstetrics & Gynecology
DX: Z01.419 Encounter for gynecological examination (general) (routine) without abnormal findings (principal); Z11.51 Encounter for screening for human papillomavirus (HPV)
CPT/HCPCS: 87624; 88142; 99396

== ENCOUNTER 2024-01-27 14:37 | Outpatient (AMB) | payer MEDICAID, SELFPAY ==
[2024-01-27 14:45] VITALS: BP 116/72; BMI 28.7
--- NOTE | 2024-01-27 14:45 | MHC.OFFVIS ---
Intake Vital Signs 01/27/24 14:45 Height 5 ft 1 in Weight 152 lb 1.903 oz BMI 28.7 BP 116/72 Intake Visit Reasons: SANITOR annual exam Intake Note: no concerns Project Facilitator Required: Yes Project Facilitator Language: Rn Palliative Name: Liz MILLER Information Interpreted: non-clinical & clinical Failure Analysis Technician: Failure Analysis Technician Present (Liz MILLER) Accompanied by: Self / Same As Patient Allergies No Known Allergies Allergy (Verified 01/27/24 14:49) Is last menstrual period known: Yes Last menstrual period: 12/26/23 HPI HPI Comments History of Present Illness Details Presenting for annual exam. No complaints. 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 Sexually active: Yes Sexual orientation: Straight/Heterosexual Gender identity: Female Female Reproductive History Menstrual Age of Menarche: 9 Date of last menstrual period: 12/26/23 control method: permanent sterilization Total pregnancies: 4 Full term: 2 Number of Living Children: 2 Ab induced: 2 Date of last pap smear: 12/09/22 Date of Mammogram: 02/22/23 Review of Systems Const All systems reviewed & are unremarkable except as noted in HPI and below Card Reports as per HPI Resp Reports as per HPI GI Reports as per HPI and Reports no additional complaints Reports as per HPI Physical Exam Vital Signs: Last Vital Signs BP 116/72 01/27/24 14:45 BMI result Body Mass Index 28.7 Const General: cooperative, healthy appearing and comfortable Chest Chest palpation & inspection: normal inspection of the chest and normal palpation of entire chest wall Breast/axilla inspection: normal inspection of the breasts and normal inspection of the axillae Breast/axilla palpation: normal palpation of the breasts, normal palpation of the axillae and no axillary lymphadenopathy Resp Effort & Inspection: normal respiratory effort Auscultation: clear to auscultation bilaterally Percussion: percussion normal Cardio Palpation: normal PMI Rate: regular rate Rhythm: regular rhythm Heart sounds: no murmurs and no rubs Peripheral pulses: Peripheral pulses 2+ throughout GI Inspection: Yes normal to inspection Palpation (GI): Soft to palpation, nontender, no guarding, not rigid and No hepatosplenomegaly present Percussion: Yes normal to percussion Auscultation: normal bowel sounds Rectal Exam - Female: deferred General: Yes bladder normal to palpation External Female Exam: No lesion Speculum Exam - Vagina: normal appearance of the vagina, normal palpation, normal vaginal discharge and not erythematous Speculum Exam - Cervix: normal appearance of the cervix and normal palpation Bimanual exam- vagina & uterus: normal bimanual exam, normal palpation, uterine size normal, bladder normal to palpation, consistency normal and normal palpation Bimanual Exam- Adnexa, other: normal adnexae, no masses and no tenderness Assessment & Plan Assessment & Plan (1) Well woman exam: Comment: History of YANELI 3 in 04/03 Code(s): Z01.419 - Encounter for gynecological examination (general) (routine) without abnormal findings Plan: Cotesting done. Instructions given the patient to schedule next screening Mammogram in 03/08. Will refer to GI for screening colonoscopy Counseled the patient about the recommended dietary allowance of 1000 mg of Calcium & 600 IU of vitamin D. The patient was instructed to perform monthly self-breast exams and to schedule an annual exam in a year; All questions answered and the patient verbalized understanding. Instructed the patient to schedule annual exam in a year Orders: Orders MM tomosynthesis screening BI Today Z12.31 - Encounter for screening mammogram for malignant neoplasm of breast Referrals Gastroenterology Referral Z12.11 - Encounter for screening for malignant neoplasm of colon Coding Level of Care Code Est Pt Prev Care 40-64y(30867) Diagnoses Well woman exam Z01.419
== END 2024-01-27 15:16 | disposition home or self-care (01) ==
PROVIDERS: PCP Nurse Practitioner Family; Visit Provider Obstetrics & Gynecology
DX: Z01.419 Encounter for gynecological examination (general) (routine) without abnormal findings (principal)
CPT/HCPCS: 99396

== ENCOUNTER 2024-03-01 13:19 | Outpatient (REF) | payer MEDICAID, SELFPAY | END 2024-03-01 13:20 | disposition home or self-care (01) | LOC: HO.MAMMO 13:19 | PROVIDERS: PCP Nurse Practitioner Family; Visit Provider Obstetrics & Gynecology | DX: Z12.31 Encounter for screening mammogram for malignant neoplasm of breast (principal) | CPT/HCPCS: 77063; 77067 ==

== ENCOUNTER → 2024-03-01 13:30 | Outpatient (BNV) | payer MEDICAID, SELFPAY | PROVIDERS: PCP Nurse Practitioner Family; Visit Provider Radiology Diagnostic Radiology | DX: Z12.31 Encounter for screening mammogram for malignant neoplasm of breast (principal) | CPT/HCPCS: 77063; 77067 ==

== ENCOUNTER 2024-04-25 13:31 | Outpatient (AMB) | payer MEDICAID, SELFPAY ==
--- NOTE | 2024-04-25 14:04 | MHC.OFFVIS ---
Vital Signs 04/25/24 14:14 Height 5 ft 1 in Weight 151 lb 3.794 oz BMI 28.6 BP 144/88 H Blood Pressure Location Lt brachial Position Sitting Pulse 78 Pulse Source Pulse Oximeter Pulse Oximetry (%) 98 Oxygen Delivery Method Room Air Intake Visit Reasons: Colonoscopy screening Intake Note: Sally presents in office today for a colo scrn. CC: No previous hx of colo s/p. Pt reports that her PCP recommended the colo s/p due to chronic constipation. Pt denies any additional sx or concerns. Pt does not have any relevant family hx. Pt states that she is no longer taking the Rx'd medications that her PCP recommended for treatment for her constipation. Instead, she is consuming a homemade nutrition / supplement shakes which she has found helpful in treating her sx. Safety Instruction Police Officer Required: Yes Safety Instruction Police Officer Name: [id number] [place] Allergies No Known Allergies Allergy (Verified 04/25/24 14:11) HPI HPI Colonoscopy screening: Details: 44 year old? female here today for pre colonoscopy screening.? Patient was sent to us by Dr. Guevara.? This is her first colonoscopy screening.? Patient reports to be constipated since she been a teenager. Patient was on Dulcolax in the past and was causing her cramping. Patient states that MiraLax was making her feel very bloated.? Denies any personal or family history of gastrointestinal disease, colon polyps, or CRC.? Denies history of difficulty with sedation or anesthesia in the past.? Negative for history of sleep apnea.? Denies any history of cardiac, renal, pulmonary, or hepatic disease.?? No history of infectious? diseases like hepatitis A, B, C, HIV or tuberculosis.? 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 Sexual orientation: Straight/Heterosexual Gender identity: Female Female Reproductive History Menstrual Age of Menarche: 9 Review of Systems Const Denies weight gain and Denies weight loss ENT Reports no additional complaints, Denies dysphagia and Denies odynophagia Card Reports no additional complaints Resp Reports no additional complaints GI Denies abdominal pain, Denies belching, Denies melena, Denies bloating, Denies change in bowel habits, Reports constipation, Denies dysphagia, Denies excessive flatus, Denies dyspepsia, Denies heartburn, Denies diarrhea, Denies loose stools, Denies nausea, Denies odynophagia and Denies vomiting Reports no additional complaints Musc Reports no additional complaints Neuro Reports no additional complaints Psych Reports no additional complaints Endo Reports no additional complaints Physical Exam Vital Signs: Last Vital Signs Pulse 78 04/25/24 14:14 BP 144/88 H 04/25/24 14:14 Pulse Ox 98 04/25/24 14:14 Oxygen Delivery Method Room Air 04/25/24 14:14 BMI result Body Mass Index 28.6 Const General: healthy appearing, no acute distress and well developed Nutritional Appearance: well nourished Orientation/consciousness: patient oriented x3 Resp Effort & Inspection: normal respiratory effort, able to speak in complete sentences, no tracheal deviation and symmetric chest movement Auscultation: clear to auscultation bilaterally Cardio Rate: regular rate GI Inspection: Yes normal to inspection and No distended Palpation (GI): Soft to palpation, not firm, nontender and No hepatosplenomegaly present Auscultation: normal bowel sounds General: Yes no CVA tenderness Back/Spine/Pelvis Back: no CVA tenderness Skin General skin exam: elasticity normal, turgor normal and dry skin Neuro General: patient oriented x3 Psych Appearance: grossly normal Mental Status: mental status grossly normal Assessment & Plan Assessment & Plan (1) Constipation: Code(s): K59.00 - Constipation, unspecified Qualifiers: Constipation type: chronic idiopathic constipation Qualified Code(s): K59.04 - Chronic idiopathic constipation (2) Screen for colon cancer: Code(s): Z12.11 - Encounter for screening for malignant neoplasm of colon (3) Postprandial abdominal bloating: Code(s): R14.0 - Abdominal distension (gaseous) Plan Patient will start taking Senokot. Patient is asking to order her to get some labs done. Will check thyroid study, CBC and CMP. Patient will start taking senna. Increase fluid intake and activity to promote better bowel motility. Patient will return in 6 weeks we will discuss going for colonoscopy. She is agreeable to this plan and verbalizes understanding of instructions. She was given the opportunity to ask questions and all questions answered. Thank you for allowing me to participate in her care Orders: Orders TSH reflex Free T4 04/25/24 K59.00 - Constipation, unspecified Complete Blood Count no Diff 04/25/24 K21.9 - Gastro-esophageal reflux disease without esophagitis Comprehensive Met. Panel 04/25/24 K21.9 - Gastro-esophageal reflux disease without esophagitis Medications: New sennosides (Natural Senna Laxative) 17.2 mg (2 x 8.6 mg) PO BEDTIME 60 tabs 3RF constipation K59.00 - Constipation, unspecified Coding Level of Care Code New Pt Level 3 (00732) Diagnoses Chronic idiopathic constipation K59.04 Constipation type: chronic idiopathic constipation Screen for colon cancer Z12.11 Postprandial abdominal bloating R14.0 Time Spent (min) 40 Comment 30 minutes spent with patient and additional 10 minutes spent reviewing her records
[2024-04-25 14:14] VITALS: BP 144/88; PULSE 78; O2SAT 98; BMI 28.6
== END 2024-04-25 14:40 | disposition home or self-care (01) ==
PROVIDERS: PCP Nurse Practitioner Family; Visit Provider Nurse Practitioner Family
DX: K59.04 Chronic idiopathic constipation (principal); Z12.11 Encounter for screening for malignant neoplasm of colon; R14.0 Abdominal distension (gaseous)
CPT/HCPCS: 99203

== ENCOUNTER → 2024-04-25 13:31 | Outpatient (BNVA) | payer MEDICAID, SELFPAY | PROVIDERS: PCP Nurse Practitioner Family; Visit Provider Nurse Practitioner Family | DX: Z12.11 Encounter for screening for malignant neoplasm of colon (principal); K59.04 Chronic idiopathic constipation; R14.0 Abdominal distension (gaseous) | CPT/HCPCS: 99212 ==

== ENCOUNTER 2024-06-07 14:46 | Outpatient (AMB) | payer MEDICAID, SELFPAY ==
[2024-06-07 14:48] VITALS: BP 116/78; PULSE 78; O2SAT 98; BMI 27.8
--- NOTE | 2024-06-07 14:48 | A.OFFVIS_ITS ---
Vital Signs 06/07/24 14:48 Height 5 ft 1 in Weight 147 lb 4.301 oz BMI 27.8 BP 116/78 Blood Pressure Location Lt brachial Position Sitting Pulse 78 Pulse Source Pulse Oximeter Pulse Oximetry (%) 98 Oxygen Delivery Method Room Air Intake Visit Reasons: 6 week follow up re-discuss colo Intake Note: Sally presents in office today for a scheduled 6 week FUV and colo consult. CC; Pt reports that their condition has remained stable and is slightly improved since their previous OV. Pt denies any previous hx of colo s/p. No pertinent family hx to the pt's knowledge. Reduction Plant Supervisor Required: Yes Reduction Plant Supervisor Services: Reduction Plant Supervisor Present Reduction Plant Supervisor Name: [id number] Information Interpreted: non-clinical & clinical Accompanied by: Self / Same As Patient Allergies No Known Allergies Allergy (Verified 06/07/24 14:48) HPI HPI 6 week follow up re-discuss colo: Details: LAST VISIT: 44 year old? female here today for pre colonoscopy screening.? Patient was sent to us by Dr. Guevara.? This is her first colonoscopy screening.? Patient reports to be constipated since she been a teenager. Patient was on Dulcolax in the past and was causing her cramping. Patient states that MiraLax was making her feel very bloated.? Denies any personal or family history of gastrointestinal disease, colon polyps, or CRC.? Denies history of difficulty with sedation or anesthesia in the past.? Negative for history of sleep apnea.? Denies any history of cardiac, renal, pulmonary, or hepatic disease.?? No history of infectious? diseases like hepatitis A, B, C, HIV or tuberculosis.? Patient is not on any anticoagulation Constipation Screen for colon cancer Postprandial abdominal bloating Plan Patient will start taking Senokot. Patient is asking to order her to get some labs done. Will check thyroid study, CBC and CMP. Patient will start taking senna. Increase fluid intake and activity to promote better bowel motility. Patient will return in 6 weeks we will discuss going for colonoscopy. She is agreeable to this plan and verbalizes understanding of instructions. She was given the opportunity to ask questions and all questions answered. ? Thank you for allowing me to participate in her care Orders Orders TSH reflex Free T4 04/25/24 K59.00 Complete Blood Count no Diff 04/25/24 K21.9 Comprehensive Met. Panel 04/25/24 K21.9 TODAY'S VISIT: Patient is here today for follow-up, discuss lab results and discuss going for colonoscopy. Patient reports that she has been doing better since the last time I have seen her. Patient states that she takes Senokot daily and her symptoms have improved. Patient is moving her bowels better now. Patient has also changed her diet. Patient denies dyspepsia, dysphagia or odynophagia. Denies melena, hematochezia, unintentional weight loss or ribbon like stools. No issues with anesthesia in the past. Not on any anticoagulation medication. No history of sleep apnea. Patient denies any cardiac or respiratory symptoms. 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 Sexual orientation: Straight/Heterosexual Gender identity: Female Female Reproductive History Menstrual Age of Menarche: 9 Review of Systems Const Denies weight gain and Denies weight loss ENT Reports no additional complaints, Denies dysphagia and Denies odynophagia Card Reports no additional complaints Resp Reports no additional complaints GI Denies abdominal pain, Denies belching, Denies melena, Denies bloating, Denies change in bowel habits, Reports constipation (Better with Senokot), Denies dysphagia, Denies excessive flatus, Denies dyspepsia, Denies heartburn, Denies diarrhea, Denies loose stools, Denies nausea, Denies odynophagia and Denies vomiting Reports no additional complaints Musc Reports no additional complaints Neuro Reports no additional complaints Psych Reports no additional complaints Endo Reports no additional complaints Physical Exam Vital Signs: Last Vital Signs Pulse 78 06/07/24 14:48 BP 116/78 06/07/24 14:48 Pulse Ox 98 06/07/24 14:48 Oxygen Delivery Method Room Air 06/07/24 14:48 BMI result Body Mass Index 27.8 Const General: healthy appearing, no acute distress and well developed Nutritional Appearance: well nourished Orientation/consciousness: patient oriented x3 Resp Effort & Inspection: normal respiratory effort, able to speak in complete sentences, no tracheal deviation and symmetric chest movement Auscultation: clear to auscultation bilaterally Cardio Rate: regular rate GI Inspection: Yes normal to inspection and No distended Palpation (GI): Soft to palpation, not firm, nontender and No hepatosplenomegaly present Auscultation: normal bowel sounds General: Yes no CVA tenderness Back/Spine/Pelvis Back: no CVA tenderness Skin General skin exam: elasticity normal, turgor normal and dry skin Neuro General: patient oriented x3 Psych Appearance: grossly normal Mental Status: mental status grossly normal Assessment & Plan Assessment & Plan (1) Constipation: Code(s): K59.00 - Constipation, unspecified Qualifiers: Constipation type: slow transit constipation Qualified Code(s): K59.01 - Slow transit constipation (2) Screen for colon cancer: Code(s): Z12.11 - Encounter for screening for malignant neoplasm of colon (3) Postprandial abdominal bloating: Code(s): R14.0 - Abdominal distension (gaseous) Plan Continue Senokot daily. Patient will increase fluid intake and activity to promote better bowel motility. Patient will be booked for colonoscopy. Denies any melena, hematochezia, unintentional weight loss or ribbon like stools. Patient denies any issues with anesthesia in the past. No history of sleep apnea. Not on any anticoagulation medication. No infectious diseases in the past or present. What to expect before during and after procedure discussed with patient. The importance of good bowel prep as well as clear liquid diet day before procedure discussed with her as well. She will return to the office after the procedure, sooner on as needed basis. Patient is agreeable to this plan and verbalizes understanding of instructions. She was given the oppor danielity to ask questions and all questions answered. Thank you for allowing me participate in her care Medications: New bisacodyl (Dulcolax (bisacodyl)) take 4 tabs at noon the day before your colonoscopy 20 mg (4 x 5 mg) PO ONCE 4 tabs 0RF 1 day Z12.11 - Encounter for screening for malignant neoplasm of colon polyethylene glycol 3350 (Miralax) As directed by gastroenterology department at [facility] 238 grams PO ONCE 238 grams 0RF Z12.11 - Encounter for screening for malignant neoplasm of colon Coding Level of Care Code Est Pt Level 3 (05982) Diagnoses Slow transit constipation K59.01 Constipation type: slow transit constipation Screen for colon cancer Z12.11 Postprandial abdominal bloating R14.0 Time Spent (min) 30 Comment 20 minutes spent with patient and additional 10 minutes spent reviewing her records
== END 2024-06-07 15:29 | disposition home or self-care (01) ==
PROVIDERS: PCP Nurse Practitioner Family; Visit Provider Nurse Practitioner Family
DX: K59.01 Slow transit constipation (principal); Z12.11 Encounter for screening for malignant neoplasm of colon; R14.0 Abdominal distension (gaseous)
CPT/HCPCS: 99213

== ENCOUNTER 2024-06-07 14:46 | Outpatient (REF) | payer MEDICAID, SELFPAY ==
[2024-06-07 16:01] LABS: Hematocrit 39.4 % (37.0-47.0); Hemoglobin 13.2 g/dl (12.0-16.0); Mean Corpuscular HGB Conc 33.5 g/dl (31.0-35.0); Mean Corpuscular Hemoglobin 27.3 pg (27.0-33.0); Mean Corpuscular Volume 81.6 fL (80.0-98.0); Mean Platelet Volume 9.2 fL (9.4-12.3); Platelet Count 381 X10*3/uL (160-400); Red Blood Count 4.83 X10*6/uL (4.20-5.50); White Blood Count 10.5 X10*3/uL (4.8-10.8)
[2024-06-07 17:06] LABS: Alanine Aminotransferase 20 U/L (0-31); Albumin Level 4.7 g/dL (3.5-5.0); Alkaline Phosphatase 68 U/L (39-117); Anion Gap 14 (12-20); Aspartate Amino Transferase 17 U/L (5-31); Bilirubin Total 0.3 mg/dL (0.0-1.0); Blood Urea Nitrogen 18 mg/dL (9-16); Calcium 9.2 mg/dL (8.4-10.2); Carbon Dioxide 27 mmol/L (22-29); Chloride 104 mmol/L (96-108); Estimated Glomerular Filt Rate 57; Glucose Random 100 mg/dL (60-115); Potassium 4.2 mmol/L (3.3-5.1); Sodium 141 mmol/L (135-145); Total Protein 7.5 g/dL (6.5-8.0)
[2024-06-07 17:14] LABS: TSH reflex Free T4 1.13 uIU/mL (0.32-4.0)
== END 2024-06-07 14:47 | disposition home or self-care (01) ==
LOC: HO.LAB 14:46
PROVIDERS: PCP Nurse Practitioner Family; Visit Provider Nurse Practitioner Family
DX: K59.01 Slow transit constipation (principal); K21.9 Gastro-esophageal reflux disease without esophagitis; R14.0 Abdominal distension (gaseous)
CPT/HCPCS: 36415; 80053; 84443; 85027; 99212

== ENCOUNTER 2024-12-22 06:56 | Day surgery (SDC) | payer MEDICAID, SELFPAY ==
[2024-12-20 13:30] VITALS: BMI 27.8
--- NOTE | 2024-12-21 10:26 | HO.ANESPROP2 ---
HPI - Anesthesia Eval Consult details Narrative: 44yo F for Colonoscopy PMFSH Active Problems Active Problems: All Active Problems Painful arc syndrome of right shoulder (Acute) Candidiasis of vulva and vagina (Acute) Well woman exam (Acute) Past Medical History Medical History YANELI III (cervical intraepithelial neoplasia grade III) with severe dysplasia Patient denies significant medical history Family History Family History Sister Ovarian cancer Surgical History Surgical History H/O LEEP H/O tubal ligation Social History Social History Household Members Other:: son Housing: Apartment Alcohol intake: never Patient Tobacco Use Status: Never used Tobacco Current occupational status: employed 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 Sexual orientation: Straight/Heterosexual Gender identity: Female Meds Allergies Allergy/AdvReac Type Severity Reaction Status Date / Time No Known Allergies Allergy Verified 06/07/24 14:48 Home Medications ?Medication ?Instructions ?Recorded ?Confirmed ?Last Taken ?Type fluticasone propionate 50 intranasal QAM 04/25/24 Unknown History mcg/actuation nasal spray,suspension ibuprofen 400 mg tablet 400 mg PO TID 04/25/24 Unknown History lidocaine 5 % topical patch patch topical 04/25/24 Unknown History sodium chloride 0.9 % for ml inhalation Q4H PRN congestion 04/25/24 Unknown History nebulization Exam Height,Weight and Vital Signs: Height 5 ft 1 in Weight 66.678 kg Assessment and Plan Assessment Anesthesia Assessment: Chart Reviewed
--- OUTSIDE RECORDS SUMMARY | 2024-12-22 06:58 | XMS_ITS | Encounter Summary ---
Author Organization [employer] Address [address] [place] [address] Care Team Providers Care Business Banker Name Role Phone Sophie Bettencourt [facility] Primary Care Provider [phone] [facility] Primary Care Provider [phone] Reason for Visit * Reason Onset Date Comments triage 04/13/2023 Encounter Details Date Type Department Care Team ([facility] st Contact Info) Description 04/13/2023 Telephone [facility] [address] [place] [address] Sophie Bettencourt FNP [address] [place] [address] triage Social History Tobacco Use Types Packs/Day Years Used Date Smoking Tobacco: Never Smokeless Tobacco: Never Alcohol Use Standard Drinks/Week Comments Not Currently 0 (1 standard drink = 0.6 oz pur e alcohol) Depression Answer Date Recorded Patient Health Questionnaire-9 Score 4 12/04/2022 Depression Answer Date Recorded Patient Health Questionnaire-2 Score 0 12/04/2022 Comments No Sex and Gender Information Value Date Recorded Sex Assigned at Female 09/14/2022 10:16 AM EDT Legal Sex Female 10:16 AM EDT Gender Identity Choose not to disclose 10:16 AM EDT Sexual Orientation Choose not to disclose 2021 10:16 AM EDT documented as of this encounter Miscellaneous Notes * Telephone Encounter - Doris Johann - 04/13/2023 3:42 PM EDT Symptom: Shoulder Pain - Not From Injury Outcome: Schedule an appointment to be seen within 24 hours Reason: Caller denied all higher acuity questions The caller accepted this outcome Please contact pt at [phone] documented in this encounter Plan of Treatment Not on file documented as of this encounter Visit Diagnoses Not on filedocumented in this encounter Additional Health Concerns Assessment Noted Time PHQ-9 Depression Total Score: 4 12/04/19 10:49 AM EST documented as of this encounter Care Teams Business Banker Relationship Specialty Start Date End Date Sophie Bettencourt FNP [address] [place] [address] PCP - General Family Medicine 12/04/22 07/13/24 Barbie Joseph FNP [address] [place] [address] PCP - General Family Medicine 07/14/24 documented as of this encounter
--- OUTSIDE RECORDS SUMMARY | 2024-12-22 06:58 | XMS_ITS | Encounter Summary ---
Author Organization [employer] Address [address] [facility] 7t [place] [address] Care Team Providers Care Clicking Machine Operator Name Role Phone Sophie Bettencourt [facility] Primary Care Provider [phone] [facility] Primary Care Provider [phone] Encounter Details Date Type Department Care Team (Late st Contact Info) Description 12/21/2023 Abstract [facility] MEDICINE [address] [place] [address] Sophie Bettencourt FNP [address] [place] [address] Social History Tobacco Use Types Packs/Day Years Used Date Smoking Tobacco: Never Smokeless Tobacco: Never Alcohol Use Standard Drinks/Week Comments Not Currently 0 (1 standard drink = 0.6 oz pur e alcohol) Depression Answer Date Recorded Patient Health Questionnaire-9 Score 5 12/20/2023 Patient Health Questionnaire-9 Score 5 12/20/2023 Last PHQ-9: Questionnaire Data Not on file 0 12/20/2023 Housing Stability Answer Date Recorded What is your housing situation today? I have marissa braxton 12/20/[address] you li ve. Do you have problems with any of the following? None of the above 12/20/2023 Food Insecurity Answer Date Recorded Within the past 12 months, y ou worried that your food would run out before you got money to buy more: Often true 12/20/2023 Within the past 12 months,th e food you bought just didn't last and you didn't have enough money to get more: Never True 03/2024 Transportation Answer Date Recorded In the past 12 months, has l ack of transportation kept you from medical appts, meetings, work or from getting things needed for daily living? No 12/20/2023 Utilities Answer Date Recorded In the past 12 months, has t he electric, gas, oil or water company threatened to shut off services in your home? No 12/20/2023 Depression Answer Date Recorded Patient Health Questionnaire-2 Score 2 12/20/2023 Comments No Sex and Gender Information Value Date Recorded Sex Assigned at Female 09/14/2022 10:16 AM EDT Legal Sex Female 10:16 AM EDT Gender Identity Choose not to disclose 10:16 AM EDT Sexual Orientation Choose not to disclose 2021 10:16 AM EDT documented as of this encounter Plan of Treatment Not on file documented as of this encounter Visit Diagnoses Not on filedocumented in this encounter Additional Health Concerns Assessment Noted Time PHQ-9 Depression Total Score: 5 12/20/19 24 10:25 AM EST documented as of this encounter Care Teams Clicking Machine Operator Relationship Specialty Start Date End Date Sophie Bettencourt FNP [address] [place] [address] PCP - General Family Medicine 12/04/22 07/13/24 Barbie Joseph FNP [address] [place] [address] PCP - General Family Medicine 07/14/24 documented as of this encounter
--- OUTSIDE RECORDS SUMMARY | 2024-12-22 06:58 | XMS_ITS | Encounter Summary ---
Author Organization [employer] Address [address] [facility] 7t [place] [address] Care Team Providers Care Senior Energy Market Coordinator Name Role Phone Barbie Joseph [facility] Primary Care Provider [phone] Reason for Visit * Reason Comments Med Refill Encounter Details Date Type Department Care Team ([facility] st Contact Info) Description 11/23/2024 Refill [facility] MEDICINE [address] [place] [address] Sophie Bettencourt FNP [address] [place] [address] Social History Tobacco Use Types Packs/Day Years [...] documented as of this encounter Care Teams Senior Energy Market Coordinator Relationship Specialty Start Date End Date Barbie Joseph FNP [address] [place] [id number] PCP - General Family Medicine 07/14/24 documented as of this encounter
--- OUTSIDE RECORDS SUMMARY | 2024-12-22 06:58 | XMS_ITS | Encounter Summary ---
Author Organization [employer] Address [address] [facility] 7t [place] [address] Care Team Providers Care Body Specialist Name Role Phone Sophie Bettencourt Primary Care Provider [phone] [facility] Primary Care Provider [phone] Encounter Details Date Type Department Care Team ([facility] st Contact Info) Description 06/16/2023 Abstract [facility] MEDICINE [address] [place] [address] Sophie Bettencourt FNP [address] [place] [address] Social History Tobacco Use Types Packs/Day Years [...] Time PHQ-9 Depression Total Score: 4 12/04/19 23 10:49 AM EST documented as of this encounter Care Teams Body Specialist Relationship Specialty Start Date End Date Sophie Bettencourt FNP [address] [place] [address] PCP - General Family Medicine 12/04/22 07/13/24 LindenBarbie moser FNP [address] [place] [address] PCP - General Family Medicine 07/14/24 documented as of this encounter
--- OUTSIDE RECORDS SUMMARY | 2024-12-22 06:58 | XMS_ITS | Clinical Summary ---
Author Organization [employer] Address [address] [facility] 7t [place] [address] Care Team Providers Care Process Inspector Name Role Phone Barbie Joseph [facility] Primary Care Provider [phone] Allergies No known active allergies Medications lidocaine (Lidoderm) 5 % patchIndicatio ns:Intermitten t low back pain Apply 1 patch topically in the morning. Remove & discard patch within 12 hours or as directed by MD. 30 patch 1 02/11/20 23 Active fluticasone (Flonase) 50 MCG/ACT nasal sprayIndicatio ns:COVID Administer 1 spray into each nostril in the morning. 16 g 11/17/19 24 Active loratadine-pse udoephedrine ER (Loratadine-D 12HR) 5-120 MG 12 hr tabletIndicati ons:COVID Take 1 tablet by mouth if needed in the morning and at bedtime for allergies (nasal conegstion, cough) for up to 7 days. Do not crush, chew, or split. 14 tablet 11/17/19 24 Active Bisacodyl EC 5 MG EC tablet TAKE 1 TABLET (5 MG) BY MOUTH IF NEEDED EACH DAY FOR CONSTIPATION. DO NOT CRUSH, CHEW, OR SPLIT. 30 tablet 11/24/19 25 Active bisacodyl (Dulcolax) 5 MG EC tablet Take 1 tablet (5 mg) by mouth if needed each day for constipation. Do not crush, chew, or split. 30 tablet 12/20/19 24 025 Discontinued Active Problems Problem Noted Date Diagnosed Date COVID 11/17/2023 Assessment & Plan (11/17/2023 12:22 PM EST): Will give symptomatic rx for now. We will fu by phone tomorrow, and if sxs are improving, will continue POC. If sxs, specially fever, body aches and cough(i.e productive) are not improving. I will send a rx for Paxlovid. Rx loratadine D up to 7 d only Flonase nasal spray daily x 5-7d Isolation until 11/20/23 and she/he will be out of work until then. Can be out of isolation (go back to work if needed), wearing a mask From 11/21/23 to 11/25/23, if sxs are resolved without other meds for at least 24h. Counseled to let close contacts within the past week, know about dx so they can be tested if needed. Rest (sleep at least 8 hours a night). Wash hands frequently Hydrate with plenty of water. Use saline nose drops Take Acetaminophen or Ibuprofen as Prn fever or discomfort Gargle with salt water and use throat sprays/lozenges prn Use heated, humidified air or take hot showers. If you have a fever, stay home and away from others (self isolation) until fever-free for 72 hours (temperature should be less than 100??F without medication). Primary insomnia 08/28/2015 Vitamin D deficiency 08/28/2015 Encounters Date Type Department Care Team Description 11/23/2024 Refill [facility] MEDICINE [address] [place] [address] Sophie Bettencourt FNP from Last 3 Months Immunizations Name Administration Dates Next Due TD (adult), 2 Lf tetanus tox oid, preservative free, adsorbed 10/14/2007 Tdap 10/19/2016 Family History Medical History Relation Name Comments Colon cancer Father Diabetes Mother Hyperlipidemia Mother Cancer Sister Relation Name Status Comments Father Mother Sister Social History Tobacco Use Types Packs/Day Years Used Date Smoking Tobacco: Never Smokeless Tobacco: Never Tobacco Cessation:Counseling Given: Not Answered Alcohol Use Standard Drinks/Week Comments Not Currently [...] not to disclose 2021 10:16 AM EDT Last Filed Vital Signs Vital Sign Reading Time Taken Comments Blood Pressure 132/84 12/20/2023 10:09 AM EST Pulse 93 12/20/2023 10:09 AM EST Temperature 36.4 ??C (97.6 ??F) 12/20/2023 1 0:09 AM EST Respiratory Rate 20 12/20/2023 10:0 9 AM EST Oxygen Saturation 99% 12/20/2023 10: 09 AM EST Inhaled Oxygen Concentration - - Weight 70.2 kg (154 lb 12.8 oz) 024 10:09 AM EST Height 154.9 cm (5' 1 ) 12/20/2023 10:0 9 AM EST Body Mass Index 29.25 12/20/2023 10:09 AM EST Plan of Treatment Health Maintenance Due Date Last Done Comments CT Colonography 1979 Colonoscopy 1979 Colorectal Cancer Screening 1979 FIT DNA/Cologuard 1979 FIT 1979 FOBT 1979 Sigmoidoscopy 1979 Alcohol/Substance Use Screening 1991 Family Planning (PISQ) 1994 Hepatitis C Screening 1997 Hepatitis B Vaccines (1 of 3 - 19+ 3-dose series) 1998 COVID-19 Vaccine (2023-2 5 season) 2024 10/06/2021, 09/15/2021 Influenza Vaccine (#1) 2024 Depression Screening 12/20/2024 12/20/2023, 12/20/2023 SDOH Screening 12/20/2024 12/20/2023 Tobacco Screening 12/20/2024 12/20/2023 Mammogram 03/01/2026 03/01/2024, 02/22/2023 DTaP/Tdap/Td Vaccines (2 - T d or Tdap) 10/19/2026 10/19/2016, 10/14/2007 Cervical Cancer Screening 12/09/2027 HPV/Cotest 12/09/2027 10/11/2018 Pap Smear 12/09/2027 12/09/2022 Zoster Vaccines (1 of 2) 2029 RSV Patients and Patients Aged 60 years or older (1 - 1-dose 75+ series) 2054 HIV Screening Completed 09/11/2020 HIB Vaccines Aged Out No longer eligi ble based on patient's age to complete this topic HPV Vaccines Aged Out No longer eligi ble based on patient's age to complete this topic Hepatitis A Vaccines Aged Out No long er eligible based on patient's age to complete this topic IPV Vaccines Aged Out No longer eligi ble based on patient's age to complete this topic Meningococcal Vaccine Aged Out No germania azucena eligible based on patient's age to complete this topic Pneumococcal Vaccine: Pediatrics (0 to 5 Years) and At-Risk Patients (6 to 49) Years) Aged Out No longer eligible b ased on patient's age to complete this topic RSV under 20 months Aged Out No longe r eligible based on patient's age to complete this topic Rotavirus Vaccines Aged Out No longer eligible based on patient's age to complete this topic Procedures Procedure Name Priority Date/Time Associated Diagnosis Comments BI MAMMOGRAM SCREENING TOMOSYNTHESIS BILATERAL Routine 03/01/2024 1:40 PM EDT PAP SMEAR Routine 12/09/2022 11:39 AM EST HIV 1/2 ANTIGEN/ANTIBODY, FOURTH GENERATION W/RFL Routine 09/11/2020 1:30 PM EDT ZZZ HISTORICAL HPV MRNA E6/E7 Routine 10/11/2018 10:53 AM EST from Last 3 Months or Most Recently Relevant to Health Maintenance Results * BI Mammogram Screening Tomosynthesis Bilateral (03/01/2024 1:40 PM EDT) Anatomical Region Laterality Modality Breast Bilateral Mammography 03/01/2024 1:40 PM EDT Narrative 03/06/2024 6:50 PM EDT ? [facility] [place] ? [address] ?[place] [address] ? Mammography Report ? Signed ? Patient: Butler,Sally ?MR#: [id number] ? : 1980 ?Acct:[id number] ? Age/Sex: 44 / F ?ADM Date: /17/24 ? Loc: HO.MAMMO ? Attending Dr: Shahriar Guevara MD ? Ordering Physician: Shahriar Guevara MD ?Results: 1Negativ ?? e ? Date of Service: /17/24 ?Follow Up: 1 Year From Orig ?? inal Mammogram ? Procedure(s): MM tomosynthesis screening BI ?? Accession Number(s): [id number] ? cc: Sophie Bettencourt NP; Shahriar Guevara MD ? EXAMINATION: ?? MM SCREENING DIGITAL BREAST TOMOSYNTHESIS, BILATERAL ? CLINICAL INFORMATION: ? Screening. Asymptomatic. ? COMPARISON: ?? Mammography: This study is compared with prior exams dating back to ?? 2020. ? TECHNIQUE: ?? Digital breast tomosynthesis is performed in both the craniocaudal and ?? mediolateral oblique views along with computer-aided detection (CAD). ?? Synthesized 2D images are generated from the tomosynthesis. ? FINDINGS: ?? There are scattered areas of fibroglandular density (ACR BI-RADS breast ?? composition Category b). ? There are no significant masses, abnormal calcifications, or other ?? abnormalities. ? MM/MM tomosynthesis screening BI ?? IMPRESSION: ?? No mammographic evidence of malignancy. ? ASSESSMENT: ? BI-RADS BI-RADS 1 - Negative ? RECOMMENDATION: ?? Routine annual mammography screening. ? 1 year F/U ? This examination should not preclude the clinical evaluation of a ?? suspicious palpable abnormality. ? This patient's information was entered into a reminder system with a ?? target due date for their next mammogram. ? Dictated By: ?Kylie Hamilton MD ? Signed By: ?<Electronically signed by Kylie Hamilton MD in OV> ? 03/06/24 1845 ? DD/ 1340 ? TD/TT: ? [employer]: ? Procedure Note Yuan, Image - 03/06/2024 [facility] [address] [place] [address] [place] [address] Mammography Report Signed Patient: Fariba Butler#: [id number] : 1980Acct:[id number] Age/Sex: 44 / FADM Date: 03/01/24 Loc: HO.MAMMO Attending Dr: Shahriar Guevara MD Ordering Physician: Shahriar Guevara MDResults: 1Negativ e Date of Service: 03/01/24Follow Up: 1 Year From Orig ina Mammogram Procedure(s): MM tomosynthesis screening BI Accession Number(s): [id number] cc: Sophie Bettencourt TAX MANAGER CPA; Shahriar Guevara MD EXAMINATION: MM SCREENING DIGITAL BREAST TOMOSYNTHESIS, BILATERAL CLINICAL INFORMATION: Screening. Asymptomatic. COMPARISON: Mammography: This study is compared with prior exams dating back to 2020. TECHNIQUE: Digital breast tomosynthesis is performed in both the craniocaudal and mediolateral oblique views along with computer-aided detection (CAD). Synthesized 2D images are generated from the tomosynthesis. FINDINGS: There are scattered areas of fibroglandular density (ACR BI-RADS breast composition Category b). There are no significant masses, abnormal calcifications, or other abnormalities. MM/MM tomosynthesis screening BI IMPRESSION: No mammographic evidence of malignancy. ASSESSMENT: BI-RADS BI-RADS 1 - Negative RECOMMENDATION: Routine annual mammography screening. 1 year F/U This examination should not preclude the clinical evaluation of a suspicious palpable abnormality. This patient's information was entered into a reminder system with a target due date for their next mammogram. Dictated By: Kylie Hamilton MD Signed By: <Electronically signed by Kylie Hamilton MD in OV> 03/06/24 1845 DD/ 1340 TD/TT: [employer]: [facility] External Provider IMG BI PROCEDURES Edited Result - Final * Pap Smear (12/09/2022 11:39 AM EST) 12/09/2022 11:3 9 AM EST 12/09/2022 1:00 PM EST [facility] - 12/18/2022 6:29 PM EST ----- ------- Name: CarrieSally ? Age/Sex: 42/F ? : 1980 Unit#: [id number] ?? Attend Dr: Shahriar Guevara MD ?Re12/09/22 ?Status: DEP REF ? Location: HO.LNP ?Disch: ? ----- ------- SPEC : [id number] ? RECD: 12/09/22-1300 ? STATUS: ??SOUT ? REQ NUM: [id number] ? MARK: 12/09/221138 ? SUBM DR: Shahriar Guevara MD ? ENTERED: ??12/09/229 ?SP TYPE: Pap Smr ?OTHR DR: Sophie Bettencourt TAX MANAGER CPA ? ORDERED: ??Pap Smear ? Interpretation ?? Satisfactory for evaluation. ?? Negative for intraepithelial lesion or malignancy. ? HPV mRNA E6/E7: ?NOT DETECTED ? This assay detects E6/E7 viral messenger RNA (mRNA) from 14 high-risk HPV types (16, 18, ?? 31, 33, 35, 39, 45, 51, 52, 56, 58, 59, 66, 68) ? HPV testing performed by [facility], [place], [place]. ??See reference laboratory ?? portion of the EMR for entire report. ?Clinical Information LMP: 11/2022 Previous PAP test: 2020, WNL ? Material Received ?? ThinPrep-Cervical Copies To: ?? Sophie Bettencourt TAX MANAGER CPA ?? [address] ?? [place] [address] ?? [phone] ?? Shahriar Guevara MD ?? [address] [facility] ?? [place] [address] ?? [phone] ----- ------- Signed (signature on file) Hanna Ledbetter Lidya 12/18/22 182 ? ----- ------- ? END OF REPORT ? [facility] External Provider LAB CYT OLOGY ORDERABLES Final Result [facility] [address] [place] [address] [phone] * HIV 1/2 ANTIGEN/ANTIBODY,FOURTH GENERATION W/RFL (09/11/2020 1:30 PM EDT) HIV-1/2 ANTIGEN AND ANTIBODIES, 4TH GENERATION W/ REFLEX NON[facility] Comment: HIV-1 antigen and HIV-1/HIV-2 antibodies were not detected. There is no laboratory evidence of HIV infection. ?? PLEASE NOTE: This information has been disclosed to you from records whose confidentiality may be protected by state law. ??If your state requires such protection, then the state law prohibits you from making any further disclosure of the information without the specific written consent of the person to whom it pertains, or as otherwise permitted by law. A general authorization for the release of medical or other information is NOT sufficient for this purpose. ? For additional information please refer to http://education.LiveData.Level/faq/HRL644 (This link is being provided for informational/ educational purposes only.) ? The performance of this assay has not been clinically validated in patients less than 2 years old. ?? HIV-1/2 ANTIGEN AND ANTIBODIES, 4TH GENERATION W/ REFLEX NON-[facility]ACT [facility] Comment: HIV-1 antigen and HIV-1/HIV-2 antibodies were not detected. There is no laboratory evidence of HIV infection. ?? PLEASE NOTE: This information has been disclosed to you from records whose confidentiality may be protected by state law. ??If your state requires such protection, then the state law prohibits you from making any further disclosure of the information without the specific written consent of the person to whom it pertains, or as otherwise permitted by law. A general authorization for the release of medical or other information is NOT sufficient for this purpose. ? For additional information please refer to http://[employer].Parascale/faq/JPO294 (This link is being provided for informational/ educational purposes only.) ? The performance of this assay has not been clinically validated in patients less than 2 years old. ?? 09/11/2020 1:30 PM EDT us Rosa Hand NP LAB BLOOD ORDERABLES Final Resul t [facility] [address] * (ABNORMAL) HPV mRNA E6/E7 (10/11/2018 10:53 AM EST) HPV mRNA E6/E7 DETECTED (AA) NOT DETECTED [facility] Comment: This test was performed using the APTIMA(R) HPV Assay ([employer] This assay detects E6/E7 viral messenger RNA (mRNA) from 14 high-risk HPV types (16,18,31,33,35,39,45,51, 52,56,58,59,66,68). For additional information please refer to: http://[employer].Parascale/faq/TTU166e3 (This link is being provided for informational/ educational purposes only.) The analytical performance characteristics of this assay have been determined by [facility] [place], [place]. The modifications have not been cleared or approved by the FDA. This assay has been validated pursuant to the CLIA regulations and is used for clinical purposes. Test Performed by [employer], [facility] [place], [address] [place] [address] Hadley An M.D., Ph.D., Director of Laboratories , CLIA [id number] Please note: ??Effective 07/27/2016, HPV testing will be performed using [employer]'s APTIMA test which targets mRNA. Detecting mRNA instead of DNA, as in older methods, offers significant improvements in specificity. 10/11/2018 10:5 3 AM EST us Rosa Hand NP HISTORICAL/NON ORDERABLE LABS Fi nal Result [facility] [address] from Last 3 Months or Most Recently Relevant to Health Maintenance Insurance [facility] C3 Care Teams Process Inspector Relationship Specialty Start Date End Date Barbie Joseph FNP [address] [place] [id number] PCP - General Family Medicine 07/14/24
[2024-12-22 07:10] VITALS: BMI 28.1
[2024-12-22] MEDS: Lactated Ringers 1,000 ML 100 ML IVCONT (07:19)
--- NOTE | 2024-12-22 07:21 | P.HPSUR_ITS ---
Pre-Procedural Eval Section A - 24 Hr Update-Section A only Date of Service: 12/22/24 The patient is an INPATIENT: No The patient has been examined within 24 hours of the surgical procedure. The History & Physical has been completed within 30 days and I have reviewed it.: No Section B - Complete if H&P > 30 days Chief Complaint: screening Relevant Family History (Specify if Yes): No Relevant Social History: None Present Medications: see Short Stay Collaborative assessment Medical History: Significant History (YANELI III (cervical intraepithelial neoplasi a grade III) with severe dysplasia) History of Previous Operations: Relevant previous surgery/procedure and date(s) (H/O LEEP H/O tubal ligation) Allergies: Allergies Allergy/AdvReac Type Severity Reaction Status Date / Time No Known Allergies Allergy Verified 06/07/24 14:48 Review of Systems Sugical H&P ROS: Negative: Constitution, Cardiovascular, Respiratory and Gastrointestinal Exam Surgical H&P Exam: Normal: Heart, Normal: Lungs, Normal: Extremities and Normal: Abdomen Plan Diagnosis/Plan: Unchanged I have reviewed the history and physical and performed a pertinent physical examination on my patient. No changes have occurred unless specified. Time Spent With Patient Time: Total time managing care of this patient today ____ minutes.
[2024-12-22 07:26] VITALS: BP 137/86; PULSE 101; RESP 18; TEMP 36.8; O2SAT 98
--- NOTE | 2024-12-22 08:48 | P.CONAN_ITS ---
[facility] Active Problems Active Problems: All Active Problems Painful arc syndrome of right shoulder (Acute) Candidiasis of vulva and vagina (Acute) Well woman exam (Acute) Past Medical History Medical History YANELI III (cervical intraepithelial neoplasia grade III) with severe dysplasia Patient denies significant medical history Functional capacity: independent ambulation Patient : No Family History Family History Sister Ovarian cancer Family history of problems with anesthesia: No Surgical History Surgical History H/O LEEP H/O tubal ligation History of Problems with Anesthesia: No Social History Social History Household Members Other:: [facility] Housing: Apartment Are you a primary pediatric acute care unit nurse to a significant other at home: No Do you presently have visiting nurse or other home services: No Alcohol intake: never Patient Tobacco Use Status: Never used Tobacco Have you been hit, kicked, punched, or otherwise hurt by someone within the past year? 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 Sexual orientation: Straight/Heterosexual Gender identity: Female Meds Allergies Allergy/AdvReac Type Severity Reaction Status Date / Time No Known Allergies Allergy Verified 06/07/24 14:48 Active Medications: Current Medications Lactated Ringer's (Lr) 1,000 mls @ 100 mls/hr IVCONT .Q10H BAM Last Admin: 12/22/24 07:19 Dose: 100 mls/hr Home Medications ?Medication ?Instructions ?Recorded ?Confirmed ?Last Taken ?Type fluticasone propionate 50 intranasal QAM 04/25/24 Unknown History mcg/actuation nasal spray,suspension ibuprofen 400 mg tablet 400 mg PO TID 04/25/24 Unknown History lidocaine 5 % topical patch patch topical 04/25/24 Unknown History sodium chloride 0.9 % for ml inhalation Q4H PRN congestion 04/25/24 Unknown History nebulization Exam Height,Weight and Vital Signs: Height 5 ft 1 in Weight 67.4 kg Last Vital Signs Temp 98.2 F 12/22/24 07:26 Pulse 101 H 12/22/24 07:26 Resp 18 12/22/24 07:26 BP 137/86 12/22/24 07:26 Pulse Ox 98 12/22/24 07:26 O2 Del Method Room Air 12/22/24 07:26 Airway Mallampati Class: III TM Dist: >3cm Neck ROM: Full Heart: RRR Lungs: CTA Assessment and Plan Assessment Anesthesia Assessment: Anesthesia Plan Discussed and Chart Reviewed Final Anesthetic Review Family History of Problems with Anesthesia: No History of Problems with Anesthesia: No NPO: Yes ASA Class: II Final Preanesthetic Review: Meds/Allgs Chart Reviewed, Consent Obtained/Reviewed and Anes Risks/Benef Reviewed Patient Risk: Low Procedure Risk: Low Anesthetic Plan Anesthetic Plan: MAC: Disposition: Standard PACU
--- NOTE | 2024-12-22 09:05 | P.OPN-COLO_ITS ---
Colonoscopy Operative Note Operative Note Date of Service: 12/22/24 Narrative: COLONOSCOPY TILL CECUM Pre-op diagnosis: Colon cancer screening (first colon). Post-op diagnosis:? Diverticulosis Endoscopist:? Vickey Blankenship MD Anesthesia:?MAC Consent: Indications for the procedure and potential complications of bleeding, perforation, reaction to medications and missed diagnosis were discussed with the patient and informed consent was obtained. Instrument: Olympus PCF H 190 L variable stiffness pediatric colonoscope Monitoring: Vital signs and clinical assessment, intermittent blood pressure monitoring, continuous EKG monitoring, Pulse oximetry and Carbon Dioxide monitoring were done throughout the procedure. Please see anesthesia flowsheet. Colon withdrawl time was 12 minutes. Procedure: The patient was placed in the left lateral decubitis position and pre-procedure medications were administered. After a digital rectal examination of the ano-rectum, the video colonoscope was inserted into the rectum and advanced through the colon to the cecum. The colonoscope was slowly withdrawn in a retrograde panoramic fashion and the colon mucosa was carefully examined including a retroflexed view of the rectum. Findings and interventions are described below. Procedure Difficulty: without difficulty Findings: Terminal Ileum: Not evaluated Cecum: Normal Ascending Colon: Normal Transverse Colon: Normal Descending Colon: Normal Sigmoid Colon: Moderate diverticulosis Rectum: Normal Ano-rectum: Normal Colon preparation: Excellent after some irrigation. Montgomery Bowel Preparation Scale Right colon; 3 Transverse colon: 3 Left colon; 3 (0 = Unprepared colon segment with mucosa not seen due to solid stool that cannot be cleared. 1 = Portion of mucosa of the colon segment seen, but other areas of the colon segment not well seen due to staining, residual stool and/or opaque liquid. 2 = Minor amount of residual staining, small fragments of stool and/or opaque liquid, but mucosa of colon segment seen well. 3 = Entire mucosa of colon segment seen well with no residual staining, small fr agments of stool or opaque liquid) Impression and Post Procedure Diagnosis: Colonoscopy Findings: No polyps were detected Moderate diverticulosis seen in the sigmoid colon Plan: Pt has a FU appointment on 01/05/25 with Devi Padilla NP Repeat Colonoscopy in 10 year (earlier if pt develops a change in bowel movements or rectal bleeding). Above findings were reviewed with the patient and relevant handouts were given and the discharge area.
[2024-12-22 09:07] VITALS: BP 93/46; PULSE 101; RESP 16; TEMP 36.7; O2SAT 96
[2024-12-22 09:22] VITALS: BP 126/78; PULSE 82; RESP 16; TEMP 36.6; O2SAT 94
--- NOTE | 2024-12-22 11:02 | HO.POSTANES ---
Post Anesthesia Evaluation Post Anesthesia Evaluation Date of Service: 12/22/24 Vital Signs: Vital Signs Temp Pulse Resp BP Pulse Ox O2 Del Method 12/22/24 09:22 98 F 82 16 126/78 94 Room Air 12/22/24 09:07 98.1 F 101 H 16 93/46 L 96 Room Air 12/22/24 07:26 98.2 F 101 H 18 137/86 98 Room Air Anesthesia: Monitored Mental Status: Awake Pain Control: Satisfactory Nausea/Vomiting: None Hydration: Adequate Anesthesia-Related Issues: No Anes. Related Issues
== END 2024-12-22 10:00 | disposition home or self-care (01) ==
PROVIDERS: PCP Pediatrics; Visit Provider Internal Medicine Gastroenterology
PROC: 0DJD8ZZ Inspection of Lower Intestinal Tract, Via Natural or Artificial Opening Endoscopic (ICD-10-PCS; CPT 45378; principal; 2024-12-22 08:30)
DX: Z12.11 Encounter for screening for malignant neoplasm of colon (principal); K57.30 Diverticulosis of large intestine without perforation or abscess without bleeding; K59.01 Slow transit constipation; R14.0 Abdominal distension (gaseous); Z86.001 Personal history of in-situ neoplasm of cervix uteri; Z98.890 Other specified postprocedural states; Z79.899 Other long term (current) drug therapy
CPT/HCPCS: 45378; J2003; J2704

== ENCOUNTER 2025-03-03 07:56 | Emergency (ER) | payer MEDICAID, SELFPAY ==
--- NOTE | ~2025-03-03 | XR_ITS ---
CLINICAL HISTORY: pain 3 view right shoulder Comparison: CR/MO/SR - XR SHOULDER RT MIN 2V - 03/07/23 13:34 EDT Findings: Bones intact. No dislocations. There is a small corticated fragment adjacent to the greater tuberosity which could indicate calcific tendinosis. No significant loss of joint space or osteophytes. No erosions. No radiopaque foreign body. IMPRESSION: 1. No acute fracture. Possible calcific tendinosis. This document has been electronically signed by: La Chavez MD on 03/03/2025 08:35:13
[2025-03-03 07:57] VITALS: BP 148/78; PULSE 83; RESP 16; TEMP 36.4; O2SAT 99; BMI 29.4
--- NOTE | 2025-03-03 08:19 | ED_ITS ---
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 She states pain began yesterday (03/02) when she woke up in the morning and had difficulty in raising her arm up. She explains this is a chronic condition for her. She had f ollowed up with orthopedics and has received physical therapy for pain but the pain has been worsening since yesterday. She states she had been taking Ibuprofen every 4 hours yesterday with minimal effect in pain management. She states the pain is contained over the right deltoid and is not associated with symptoms of radiculopathy. 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 She denies recent injury/ fall, fever, nausea, vomiting, parasthesias of the right shoulder or arm, cervical pain, or headaches. MD Complaint: extremity pain (right shoulder) Onset (ago): day(s) (1) Pain Consistency: constant Location: right Severity scale (1-10): 7 Quality: aching and constant Radiation: none Relieving factors: nothing Exacerbating factors: range of motion (lateral abduction) Associated symptoms: denies other symptoms Related Data Home Medications ?Medication ?Instructions ?Recorded ?Confirmed fluticasone propionate 50 intranasal QAM 04/25/24 mcg/actuation nasal spray,suspension ibuprofen 400 mg tablet 400 mg PO TID 04/25/24 lidocaine 5 % topical patch patch topical 04/25/24 sodium chloride 0.9 % for ml inhalation Q4H PRN congestion 04/25/24 nebulization Previous Rx's ?Medication ?Instructions ?Recorded acetaminophen 500 mg tablet 1,000 mg (2 x 500 mg) PO TID PRN 03/07/23 pain #30 tabs sennosides 8.6 mg tablet (Natural 17.2 mg (2 x 8.6 mg) PO BEDTIME 04/25/24 Senna Laxative) constipation #60 tabs Allergies Allergy/AdvReac Type Severity Reaction Status Date / Time No Known Allergies Allergy Verified 03/03/25 07:59 Review of Systems Review of Systems: Yes all other systems are reviewed and are negative [facility] Past Medical History Attestation statement: The following information was validated with the patient. Source: old records reviewed Medical History YANELI III (cervical intraepithelial neoplasia grade III) with severe dysplasia Patient denies significant medical history Surgical History H/O LEEP H/O tubal ligation Family History Family History Sister Ovarian cancer Social History Social History Household Members Other:: [facility] Housing: Apartment Are you a primary resident care director to a significant other at home: No Do you presently have visiting nurse or other home services: No Alcohol intake: never Patient Tobacco Use Status: Never used Tobacco Advance Directives: No Advance Directives Information Provided: Yes Current occupational status: employed 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 Oriented X3. No acute distress. HEENT: normal inspection CVS: Normal heart rate and rhythm. Pulses normal. Respiratory: No respiratory distress. Skin: Skin warm and dry. Normal skin color. Normal skin turgor. No rashes. Extremities: Right extremity with pain and decreased ROM in lateral abduction. No skin changes, temperature changes, no radiculopathy. 3+ radial pulses Neuro: Oriented X 3. No motor deficit. No sensory deficit. Medications Administered Discontinued Medications Generic Name Dose Route Start Last Admin Trade Name Freq PRN Reason Stop Dose Admin Ibuprofen 600 mg 03/03/25 08:18 03/03/25 08:29 Ibuprofen 600 Mg Tablet PO 03/03/25 08:19 600 mg ONCE ONE Administration Medical Decision Making Medical Decision Making [facility] Narrative: 45 year- old female with PMHx of cervical neoplasia, painful arc syndrome pressents to the ED with 8/10 right shoulder pain. She states pain began yesterday (03/02) when she woke up in the morning and had difficulty in raising her arm up. She explains this is a chronic condition for her. She had followed up with orthopedics and has received physical therapy for pain but the pain has been worsening since yesterday. She states she had been taking Ibuprofen every 4 hours yesterday with minimal effect in pain management. She states the pain is contained over the right deltoid and is not associated with symptoms of radiculopathy. 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 She denies recent falls/injury, fever, nausea, vomiting, parasthesias of the right shoulder or arm, cervical pain, or headaches. Patients vital signs are stable, is in no acute distress and non-toxic appearing Patient has significant pain in lateral abduction. Is able to perform lift off test but has pain in the deltoid region when doing so. She is not having any symptoms of radiculopathy. There is no midline cervical or para cervical tenderness on physical exam. 3+ radial pulses bilaterally. There are no skin temperature/ color changes. Low suspicion for impingement syndrome due to lack of radicular symptoms. She has been experiencing this pain over the last 2 years, following orthopedics and has completed physical therapy with minimal improvement. Most likely chronic rotator cuff injury. Will obtain X-ray of right shoulder to rule out trauma/fracture. Course 08:56- X-ray reveals no fracture of the right shoulder. Small corticated fragment adjacent to greater tuberosity is seen, possible calcific tendinosis. Plan includes the patient to rest the limb and perform gentle ROM to prevent adhesive capsulitis. Icing the area, and alternating Tylenol/Motrin for pain managment. Patient will be counseled to follow up with orthopedic group for further evaluation. Differential Diagnosis Differential Diagnoses: The differential diagnosis associated with the presentation includes fracture, rotator cuff injury, nerve impingement, adhesive capsulitis, calcific tendinosis Admission/Observation Consideration of admission/observation: Escalation of care including admission/observation considered Independent Interpretation I performed an independent interpretation of an: Plain X-Ray Interpretation: xr without acute fracture in the shoulder, no appreciated AC joint separation Radiology Impression Discussion of test interpretation with radiology: I have reviewed the radiologist's reading. Radiologist Impression: XR SHOULDER RT MIN 2V - 03/07/23 13:34 EDT Findings: Bones intact. No dislocations. There is a small corticated fragment adjacent to the greater tuberosity which could indicate calcific tendinosis. No significant loss of joint space or osteophytes. No erosions. No radiopaque foreign body. IMPRESSION: 1. No acute fracture. Possible calcific tendinosis. This document has been electronically signed by: La Chavez MD on 03/03/2025 08:35:13 External Record Review External record reviewed: Inpatient record Prescription Management I considered prescription management with: Pain Medication (600mg of ibuprofen) Chronic Conditions Patient?s care impacted by: Other (cervical neoplasia ) Critical Care Time Critical Care Time Critical Care Time: No Discharge Plan Discharge Clinical Impression: Painful arc syndrome of right shoulder, Calcific tendonitis of left shoulder Patient Disposition: Home, Self-Care Instructions: Calcific Tendinitis (ED) Additional Instructions: You were evaluated in the ED today due to left shoulder pain. X-rays of your shoulder do not show evidence of a broken bone but does show calcific tendinosis. This diagnosis causes calcium deposits in the tendon causing stiffening and pain when using the shoulder. You need to follow up with orthopedics within 5 days to further evaluate your condition. You can alternate Tylenol and Motrin every 6 hours for pain management. You wrap ice in a towel and place on the area of concern for 15 minutes at a time. Please rest the arm and perform gentle movements/stretching to care for the muscles surrounding your shoulder. Please return to the ED if you begin feeling tingling or loss of sensation in your arm, notice skin color changes, notice skin temperature changes, experience fever over 100.4 or for any other symptoms or concerns. Prescriptions: No Action acetaminophen 500 mg tablet 1,000 mg PO TID PRN (Reason: pain) Qty: 30 0RF sodium chloride 0.9 % solution for nebulization inhalation Q4H PRN (Reason: congestion) fluticasone propionate 50 mcg/actuation spray,suspension intranasal QAM lidocaine 5 % adhesive patch,medicated topical ibuprofen 400 mg tablet 400 mg PO TID sennosides [Natural Senna Laxative] 8.6 mg tablet 17.2 mg PO BEDTIME Qty: 60 3RF Referrals: [facility] Orthopedic Surgeons [Provider Group] (2 years of left shoulder pain. X-ray taken 03/03 reads calcific tendonitis ) Stand Alone Forms: Work/School Release Print Language: Irish
[2025-03-03] MEDS: Ibuprofen 600 MG TABLET PO (08:29)
[2025-03-03 10:26] VITALS: BP 130/86; PULSE 70; RESP 18; TEMP 36.4; O2SAT 100
== END 2025-03-03 10:27 | disposition home or self-care (01) ==
PROVIDERS: Emergency Provider Emergency Medicine; PCP Registered Nurse
DX: M75.32 Calcific tendinitis of left shoulder (principal); M25.511 Pain in right shoulder
CPT/HCPCS: 73030; 99283; 99284

== ENCOUNTER → 2025-03-03 08:05 | Outpatient (BNV) | payer MEDICAID, SELFPAY | PROVIDERS: Emergency Provider Emergency Medicine; PCP Registered Nurse; Visit Provider Radiology Diagnostic Radiology | DX: M25.511 Pain in right shoulder (principal) | CPT/HCPCS: 73030 ==

== ENCOUNTER 2025-04-05 11:40 | Outpatient (AMB) | payer MEDICAID, SELFPAY ==
--- NOTE | 2025-04-05 11:41 | MHC.OFFVIS ---
Vital Signs 04/05/25 11:43 Height 5 ft 1 in Weight 155 lb BMI 29.3 Intake Visit Reasons: ER f/u Bilateral shoulder pain Intake Note: Sally is a 45 year old right hand dominant female who presents today for a evaluation of her bilateral shoulder pain. She states that her right shoulder is worse than the left. Patient was seen before for her right shoulder she was referred to physical therapy and she found PT helpful but temporary . There was a discussion about an injection but patient didn't go forward with the injection. 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 States she is interested in P.T . Refuses injection at the moment. IMPRESSION: 1. No acute fracture. Possible calcific tendinosis. Digital Account Executive Name: Gracie GUERRERO/ROM Allergies No Known Allergies Allergy (Verified 04/05/25 11:44) HPI HPI ER f/u Bilateral shoulder pain: Details: Ms. Butler is a 45-year-old right-hand dominant female who presents to the office today for bilateral shoulder pain. She was seen in the emergency room on 03/03/2025 for an x-ray was obtained and she was diagnosed with calcific tendinitis and instructed to follow up with orthopedics outpatient. At this time, patient would like to avoid any injection at this time. She has attended physical therapy in the past with great relief. She would like to have an order to attend therapy at this time. 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 No ecchymosis, erythema, or edema. Full shoulder ROM in all planes. Negative cross-body reach. Negative empty can. Negative drop arm. NVI. Assessment & Plan Assessment & Plan (1) Calcific tendinitis of right shoulder: Code(s): M75.31 - Calcific tendinitis of right shoulder Category: Medical (2) Painful arc syndrome of left shoulder: Code(s): M75.102 - Unspecified rotator cuff tear or rupture of left shoulder, not specified as traumatic Category: Medical Plan Ms. Butler is a 45-year-old right-hand dominant female who presents to the office today for bilateral shoulder pain. She was seen in the emergency room on 03/03/2025 for an x-ray was obtained and she was diagnosed with calcific tendinitis and instructed to follow up with orthopedics outpatient. At this time, patient would like to avoid any injection at this time. She has attended physical therapy in the past with great relief. She would like to have an order to attend therapy at this time. While in the office today, a new physical therapy order has been placed at this time. X-rays from 03/03/2025 with the right shoulder revealed calcific tendinitis. X-rays of the left shoulder obtained in the office today were reviewed by me, Renita Chirinos PA-C, and reveal no acute fracture or dislocation. She will follow up PRN, sooner if needed. Orders: Orders XR shoulder LT min 2V Today M25.519 - Pain in unspecified shoulder PT Evaluation and Treatment Today M75.102 - Unspecified rotator cuff tear or rupture of left shoulder, not specified as traumatic, M75.31 - Calcific tendinitis of right shoulder Coding Level of Care Code Est Pt Level 3 (42102) Diagnoses Calcific tendinitis of right shoulder M75.31 Painful arc syndrome of left shoulder M75.102
[2025-04-05 11:43] VITALS: BMI 29.3
--- OUTSIDE RECORDS SUMMARY | 2025-04-05 12:15 | XMS_ITS | Encounter Summary ---
Author Organization [employer] Address [address] [place] [address] [address] [place] [address] Care Team Providers Care International Trade Teacher Name Role Phone Sophie Bettencourt Primary Care Provider [phone] [facility] Primary Care Provider [phone] Encounter Details Date Type Department Care Team ([facility] st Contact Info) Description 06/16/2023 Abstract [facility] MEDICINE [address] [place] [address] Sophie Bettencourt FNP [address] [place] [address] Social History Tobacco Use Types Packs/Day Years [...] documented as of this encounter Care Teams International Trade Teacher Relationship Specialty Start Date End Date Sophie Bettencourt FNP [address] [place] [address] PCP - General Family Medicine 12/04/22 07/13/24 [place] FNP [address] [place] [address] PCP - General Family Medicine 07/14/24 documented as of this encounter
--- OUTSIDE RECORDS SUMMARY | 2025-04-05 12:15 | XMS_ITS | Clinical Summary ---
Author Organization [employer] Address [address] [facility] 7t [place] [address] Care Team Providers Care Track Equipment Operator Name Role Phone Barbie Joseph [facility] Primary Care Provider Allergies No known active allergies Medications lidocaine (Lidoderm) 5 % patchIndication s:Intermittent low back pain Apply 1 patch topically in the morning. Remove & discard patch within 12 hours or as directed by MD. 30 patch 1 3 Active fluticasone (Flonase) 50 MCG/ACT nasal sprayIndication s:COVID Administer 1 spray into each nostril in the morning. 16 g 4 Active loratadine-pseu doephedrine ER (Loratadine-D 12HR) 5-120 MG 12 hr tabletIndicatio ns:COVID Take 1 tablet by mouth if needed in the morning and at bedtime for allergies (nasal conegstion, cough) for up to 7 days. Do not crush, chew, or split. 14 tablet 4 Active Bisacodyl EC 5 MG EC tablet TAKE 1 TABLET (5 MG) BY MOUTH IF NEEDED EACH DAY FOR CONSTIPATION. DO NOT CRUSH, CHEW, OR SPLIT. 30 tablet 5 Active Active Problems Problem Noted Date Diagnosed Date [...] Encounters Date Type Department Care Team Description 03/12/2025 10:45 AM EDT Office Visit [facility] [address] [place] [phone] Barbie Joseph FNP Diverticulosis (Primary Dx); Forgetfulness 03/12/2025 Travel 03/08/2025 Telephone [facility] [address] [place] [phone] Barbie Joseph FNP Chart prep 03/03/2025 Orders Only [facility] External Provider, [facility] 03/01/2025 Patient Outreach [facility] [address] [place] [phone] Barbie Joseph FNP Care Coordination (CHW outreach for SDOH PT-1 and food needs-LVM ) 02/28/2025 Patient Outreach [address] [address] Barbie Joseph FNP Pre-visit Planning (SDOH screening positive and Tobacco screening negative) 01/26/2025 Population Health Risk Score Community [facility] ([facility]) Department [address] [place] [phone] Provider, Population Health Generic 01/18/2025 Telephone [facility] [address] [place] [address] [facility] colonoscopy update from Last 3 Months Immunizations Immunization Administration Dates Next Due TD (adult), 2 [...] Answer Date Recorded Patient Health Questionnaire-9 Score 0 03/12/2025 Patient Health Questionnaire-9 Score 0 03/12/2025 Last PHQ-9: Questionnaire Data Not on file 0 03/12/2025 Housing Stability Answer Date Recorded What is your housing situation today? I have marissa braxton 02/28/[address] you li ve. Do you have problems with any of the following? None of the above 02/28/2025 Food Insecurity Answer Date Recorded Within the past 12 months, y ou worried that your food would run out before you got money to buy more: Sometimes True 2024 Within the past 12 months,th e food you bought just didn't last and you didn't have enough money to get more: Sometimes True 02/28/2025 Transportation Answer Date Recorded In the past 12 months, has l ack of transportation kept you from medical appts, meetings, work or from getting things needed for daily living? No 02/28/2025 Utilities Answer Date Recorded In the past 12 months, has t he electric, gas, oil or water company threatened to shut off services in your home? No 02/28/2025 Depression Answer Date Recorded Patient Health Questionnaire-2 Score 0 03/12/2025 Internet Access Answer Date Recorded Internet Access Q1 Yes 02/28/2025 Internet Access Q2 Not on file 02/28/2025 Comments No Sex and Gender Information Value Date Recorded Sex Assigned at Female 09/14/2022 10:16 AM EDT Legal Sex Female 10:16 AM EDT Gender Identity Choose not to disclose 10/31/202 2 10:16 AM EDT Sexual Orientation Choose not to disclose 2021 10:16 AM EDT Last Filed Vital Signs Vital Sign Reading Time Taken Comments Blood Pressure 139/85 03/12/2025 10:57 AM EDT Pulse 86 03/12/2025 10:57 AM EDT Temperature 36.3 ??C (97.4 ??F) 03/12/2025 1 0:57 AM EDT Respiratory Rate 20 03/12/2025 10:5 7 AM EDT Oxygen Saturation 99% 03/12/2025 10: 57 AM EDT Inhaled Oxygen Concentration - - Weight 70.7 kg (155 lb 12.8 oz) 025 10:57 AM EDT Height 154.9 cm (5' 1 ) 03/12/2025 10:5 7 AM EDT Body Mass Index 29.44 03/12/2025 10:57 AM EDT Plan of Treatment Health Maintenance Due Date Last Done Comments CT Colonography 1979 FIT DNA/Cologuard 1979 FIT 1979 FOBT 1979 Sigmoidoscopy 1979 Alcohol/Substance Use Screening 1991 Family Planning (PISQ) 1994 Hepatitis C Screening 1997 Hepatitis B Vaccines (1 of 3 - 19+ 3-dose series) 1998 COVID-19 Vaccine (2023-2 5 season) 2024 10/06/2021, 09/15/2021 Influenza Vaccine (#1) 2024 Mammogram 03/01/2025 03/01/2024, 02/22/2023 SDOH Screening 02/28/2026 02/28/2025 Depression Screening 03/12/2026 03/12/2025, 03/12/2025 Disability Screening 03/12/2026 03/12/2025 Tobacco Screening 03/14/2026 03/14/2025 DTaP/Tdap/Td Vaccines (2 - T d or Tdap) 10/19/2026 10/19/2016, 10/14/2007 Cervical Cancer Screening 12/09/2027 HPV/Cotest 12/09/2027 10/11/2018 Pap Smear 12/09/2027 12/09/2022 Zoster Vaccines (1 of 2) 2029 Colonoscopy 12/22/2034 12/22/2024 Colorectal Cancer Screening 12/22/2034 RSV Patients and Patients Aged 60 years [...] patient's age to complete this topic Meningococcal B Vaccine Aged Out No l onger eligible based on patient's age to complete [...] Procedure Name Priority Date/Time Associated Diagnosis Comments XR SHOULDER 2+ VIEWS RIGHT Routine 03/03/2025 8:35 AM EDT HM COLONOSCOPY Routine 12/22/2024 BI MAMMOGRAM SCREENING TOMOSYNTHESIS BILATERAL Routine 03/01/2024 1:40 PM EDT PAP SMEAR Routine 12/09/2022 11:39 AM EST HIV 1/2 ANTIGEN/ANTIBODY, FOURTH GENERATION W/RFL Routine 09/11/2020 1:30 PM EDT ZZZ HISTORICAL HPV MRNA E6/E7 Routine 10/11/2018 10:53 AM EST from Last 3 Months or Most Recently Relevant to Health Maintenance Results * XR Shoulder 2+ Views Right (03/03/2025 8:35 AM EDT) Anatomical Region Laterality Modality Upper Extremities, Shoulder Right Radi ographic Imaging 03/03/2025 8:35 AM EDT Narrative 03/03/2025 8:36 AM EDT ? [facility] ?[address] ?[place] [address] ?XRay Report ? Signed ? Patient: Butler,Sally ?MR#: [id number] ? : 1980 ?Acct:[id number] ? Age/Sex: 45 / F ?ADM Date: 03/03/25 ? Loc: HO.ED ? Attending Dr: ? Ordering Physician: Ralph Camp MD ?? Date of Service: 03/03/25 ?? Procedure(s): XR shoulder RT min 2V ?? Accession Number(s): [id number] ? cc: Ralph Camp MD; Barbie Joseph ? CLINICAL HISTORY: pain ? 3 view right shoulder ? Comparison: CR/IL/SR - XR SHOULDER RT MIN 2V - 03/07/23 13:34 EDT ? Findings: ?? Bones intact. No dislocations. There is a small corticated fragment ?? adjacent to the greater tuberosity which could indicate calcific ?? tendinosis. ?? No significant loss of joint space or osteophytes. ?? No erosions. No radiopaque foreign body. ? IMPRESSION: ?? 1. No acute fracture. Possible calcific tendinosis. ? This document has been electronically signed by: La Chavez MD on ?? 03/03/2025 08:35:13 ? Dictated By: ?La Chavez MD ? Signed By: ?<Electronically signed by La Chavez MD in OV> ?03/03/25 0836 ? DD/ 0835 ? TD/TT: 03/03/25 0835 ? Feller Hand: ? Procedure Note Yuan, Miriam - 03/03/[address] [address] XRay Report Signed Patient: Sally ButlerMR#: [id number] : 1980Acct:[id number] Age/Sex: 45 / FADM Date: 03/03/25 Loc: HO.ED Attending Dr: Ordering Physician: Ralph Camp MD Date of Service: 03/03/25 Procedure(s): XR shoulder RT min 2V Accession Number(s): [id number] cc: Ralph Camp MD; [facility] CLINICAL HISTORY: pain 3 view right shoulder Comparison: CR/IL/SR - XR SHOULDER RT MIN 2V - 03/07/23 13:34 EDT Findings: Bones intact. No dislocations. There is a small corticated fragment adjacent to the greater tuberosity which could indicate calcific tendinosis. No significant loss of joint space or osteophytes. No erosions. No radiopaque foreign body. IMPRESSION: 1. No acute fracture. Possible calcific tendinosis. This document has been electronically signed by: La Chavez MD on 03/03/2025 08:35:13 Dictated By: La Chavez MD Signed By: <Electronically signed by La Chavez MD in OV> 03/03/25 0836 DD/ 0835 TD/TT: 03/03/25 0835 Feller Hand: [facility] External Provider IMG XR PROCEDURES Final Result * Colonoscopy (12/22/2024) Colonoscopy Normal Normal Comment:Repeat 10 years Historical Provider HEALTH MAINTENANCE Final Result * BI Mammogram Screening Tomosynthesis Bilateral (03/01/2024 1:40 PM EDT) Anatomical Region Laterality Modality Breast Bilateral Mammography 03/01/2024 1:40 PM EDT Narrative 03/06/2024 6:50 PM EDT ? [facility] ? [address] ?[place] [address] ? Mammography Report ? Signed ? Patient: Butler,Sally ?MR#: [id number] ? : 1980 ?Acct:[id number] ? Age/Sex: 44 / F ?ADM Date: 04/17/24 ? Loc: HO.MAMMO ? Attending Dr: Shahriar Guevara MD ? Ordering Physician: Shahriar Guevara MD ?Results: 1Negativ ?? e ? Date of Service: 03/01/24 ?Follow Up: 1 Year From Orig ?? inal Mammogram ? Procedure(s): MM tomosynthesis screening BI ?? Accession Number(s): [id number] ? cc: Sophie Bettencourt NP; Shahriar Guevara [...] 1845 ? DD/ 1340 ? TD/TT: ? Feller Hand: ? Procedure Note Donotuseinterpreter, Image - [facility]/06/20[facility] [address] [place] [address] Mammography Report Signed Patient: Sally ButlerMR#: [id number] : 1980Acct:[id number] Age/Sex: 44 / FADM Date: 03/01/24 Loc: HO.MAMMO Attending Dr: Shahriar Guevara MD Ordering Physician: Shahriar Guevaraesults: 1Negativ e Date of Service: 03/01/24Follow Up: 1 Year From Orig inal Mammogram Procedure(s): MM tomosynthesis screening BI Accession Number(s): [id number] cc: Sophie Bettencourt FRAME REPAIRER; Shahriar Guevara MD EXAMINATION: MM SCREENING DIGITAL [...] in OV> 03/06/24 1845 DD/ 1340 TD/TT: Feller Hand: [facility] External Provider IMG BI PROCEDURES Edited Result - Final * Pap Smear (12/09/2022 11:39 AM EST) 12/09/2022 11:3 9 AM EST 12/09/2022 1:00 PM EST Narrative [facility] - 12/18/2022 6:29 PM EST ----- ------- Name: Sally Butler ? Age/Sex: 42/F ? : 1980 Unit#: [id number] ?? Attend Dr: Shahriar Guevara MD ?Re12/09/22 ?Status: DEP REF ? Location: HO.LNP ?Disch: ? ----- ------- SPEC : [id number] ? RECD: 12/09/22-1300 ? STATUS: ??SOUT ? REQ NUM: [id number] ? MARK: 12/09/229 ? SUBM DR: Shahriar Guevara MD ? ENTERED: ??12/09/22-0 ?SP TYPE: Pap Smr ?OTHR DR: Sophie Bettencourt FRAME REPAIRER ? ORDERED: ??Pap Smear ? Interpretation ?? Satisfactory for evaluation. ?? Negative for intraepithelial lesion or malignancy. ? HPV mRNA E6/E7: ?NOT DETECTED ? This assay detects E6/E7 viral messenger RNA (mRNA) from 14 high-risk HPV types (16, 18, ?? 31, 33, 35, 39, 45, 51, 52, 56, 58, 59, 66, 68) ? HPV testing performed by [facility], [place], [place]. ??See reference laboratory ?? portion of the EMR for entire report. ?Clinical Information LMP: 11/2022 Previous PAP test: 2020, WNL ? Material Received ?? ThinPrep-Cervical Copies To: ?? Sophie Bettencourt FRAME REPAIRER ?? [address] ?? [place] [address] ?? [phone] ?? Shahriar Guevara MD ?? [address] [place] [address] [address] ?? [place] [address] ?? [phone] ----- ------- Signed (signature on file) Hanna Bose 12/18/22 1829 ? ----- ------- ? END OF REPORT ? [facility] External Provider LAB CYT [facility] ORDERABLES Final Result [facility] [address] [place] [phone] * HIV 1/2 ANTIGEN/ANTIBODY,FOURTH GENERATION W/RFL (09/11/2020 1:30 PM EDT) [facility] HIV-1/2 ANTIGEN AND ANTIBODIES, 4TH GENERATION W/ REFLEX NON-REACT MIKHAIL NON-REACT MIKHAIL [facility] Comment: HIV-1 antigen and HIV-1/HIV-2 [...] ? For additional information please refer to http://education.[employer]/faq/OUM269 (This link is being provided for informational/ educational purposes only.) ? The performance of this assay has not been clinically validated in patients less than 2 years old. ?? HIV-1/2 ANTIGEN AND ANTIBODIES, 4TH GENERATION W/ REFLEX NON-REACT MIKHAIL NON-REACT MIKHAIL [facility] Comment: HIV-1 antigen and HIV-1/HIV-2 [...] ? For additional information please refer to http://Clipyoo.[employer]/faq/OEX489 (This link is being provided for informational/ educational purposes only.) ? The performance of this assay has not been clinically validated in patients less than 2 years old. ?? 09/11/2020 1:30 PM EDT us Rosa Hand NP LAB BLOOD ORDERABLES Final Resul t [facility] [address] * (ABNORMAL) HPV mRNA E6/E7 (10/11/2018 10:53 AM EST) HPV mRNA E6/E7 DETECTED (AA) NOT DETECTED [facility] Comment: This test was performed using the APTIMA(R) HPV Assay ([employer] This assay detects E6/E7 viral messenger RNA (mRNA) from 14 high-risk HPV types (16,18,31,33,35,39,45,51, 52,56,58,59,66,68). For additional information please refer to: http://Clipyoo.[employer]/faq/UTR353s2 (This link is being provided for informational/ educational purposes only.) The analytical performance characteristics of this assay have been determined by [facility]. The modifications have not been cleared or approved by the FDA. This assay has been validated pursuant to the CLIA regulations and is used for clinical purposes. Test Performed by [facility], [facility], [address] [place] [address] Hadley An M.D., Ph.D., Director of Laboratories , CLIA [id number] Please note: ??Effective 07/27/2016, HPV testing will be performed using [employer]'s APTIMA test which targets mRNA. Detecting mRNA instead of DNA, as in older methods, offers significant improvements in specificity. 10/11/2018 10:5 3 AM EST us Rosa Hand NP HISTORICAL/NON ORDERABLE LABS Fi nal Result [facility] [address] from Last 3 Months or Most Recently Relevant to Health Maintenance [facility] Care Teams Track Equipment Operator Relationship Specialty Start Date End Date [place] Lake[place]bie, SLIP SEAT COVERER [address] [place] [address] PCP - General Family Medicine 07/14/24
--- OUTSIDE RECORDS SUMMARY | 2025-04-05 12:15 | XMS_ITS | Clinical Summary ---
Author Organization [facility] Address [address] [place] [address] Care Team Providers Care Pipe And Tank Fabricator Name Role Phone Unavailable Primary Care Provider Unavailabl e Source Comments PLEASE NOTE, if this patient is a minor, it may be UNLAWFUL to discuss sensitive information that is contained in these records (such as FAMILY PLANNING, MENTAL HEALTH or SUBSTANCE ABUSE) with the minor patient's parent or other person without the patient's specific authorization.[facility] Social History Tobacco Use Types Packs/Day Years Used Date Smoking Tobacco: Never Assessed Social Connections Answer Date Recorded Social Connections and Isolation 0 04/28/2022 Financial Resource Strain Answer Date R ecorded Financial Resource Strain 0 2021 Stress Answer Date Recorded Stress 0 04/28/2022 Physical Activity Answer Date Recorded Physical Activity 0 04/28/2022 Food Insecurity Answer Date Recorded Food 0 04/28/2022 Transportation Needs Answer Date Record ed Transportation 0 04/28/2022 Housing Stability Answer Date Recorded Housing 0 04/28/2022 Safety and Environment Answer Date Santo rded Safety 0 04/28/2022 Utilities Answer Date Recorded Utilities 0 04/28/2022 Employment Answer Date Recorded Employment 0 04/28/2022 Comments Unknown Sex and Gender Information Value Date Recorded Sex Assigned at Not on file Legal Sex Female 7:54 AM PDT Gender Identity Not on file Sexual Orientation Not on file Plan of Treatment Not on file Insurance [place]
--- OUTSIDE RECORDS SUMMARY | 2025-04-05 12:15 | XMS_ITS | Encounter Summary ---
Author Organization [employer] Address [address] [facility] 7t [place] [address] Care Team Providers Care Robotics Mechanic Name Role Phone Sophie Bettencourt [facility] Primary Care Provider [phone] [facility] Primary Care Provider [phone] Encounter Details Date Type Department Care Team ([facility] st Contact Info) Description 12/21/2023 Abstract [facility] [address] [place] [address] Sophie Bettencourt FNP [address] [place] [address] Social History Tobacco Use Types Packs/Day Years [...] documented as of this encounter Care Teams Robotics Mechanic Relationship Specialty Start Date End Date Sophie Bettencourt FNP [address] [place] [address] PCP - General Family Medicine 12/04/22 07/13/24 Barbie Joseph FNP [address] [place] [address] PCP - General Family Medicine 07/14/24 documented as of this encounter
--- OUTSIDE RECORDS SUMMARY | 2025-04-05 12:15 | XMS_ITS | Encounter Summary ---
Author Organization [employer] Address [address] [place] [address] 7t [place] [address] Care Team Providers Care Internet Marketing Intern Name Role Phone Sophie Bettencourt [facility] Primary Care Provider [phone] [facility] Primary Care Provider [phone] Reason for Visit * Reason Onset Date Comments triage 04/13/2023 Encounter Details Date Type Department Care Team ([facility] st Contact Info) Description 04/13/2023 Telephone [facility] [address] [place] [address] Sophie Bettencourt FNP [address] [place] [address] triage Social History Tobacco Use Types Packs/Day [...] accepted this outcome Please contact pt at [phone] documented in this encounter Plan of Treatment Not on file documented as of this encounter Visit Diagnoses Not on filedocumented in this encounter Additional Health Concerns Assessment Noted Time PHQ-9 Depression Total Score: 4 12/04/19 10:49 AM EST documented as of this encounter Care Teams Internet Marketing Intern Relationship Specialty Start Date End Date Sophie Bettencourt FNP [address] [place] [address] PCP - General Family Medicine 12/04/22 07/13/24 Barbie Joseph FNP [address] [place] [address] PCP - General Family Medicine 07/14/24 documented as of this encounter
== END 2025-04-05 12:06 | disposition home or self-care (01) ==
LOC: HO.HOS 11:40
PROVIDERS: PCP Registered Nurse; Visit Provider Physician Assistant
DX: M75.31 Calcific tendinitis of right shoulder (principal); M75.102 Unspecified rotator cuff tear or rupture of left shoulder, not specified as traumatic
CPT/HCPCS: 99213

== ENCOUNTER 2025-04-05 11:40 | Outpatient (REF) | payer MEDICAID, SELFPAY ==
--- NOTE | ~2025-04-05 | XR_ITS ---
EXAMINATION: XR SHOULDER, LEFT CLINICAL INFORMATION: M25.519 - Pain in unspecified shoulder COMPARISON: None available. TECHNIQUE: AP external rotation, Grashey, scapular Y, and axillary views of the left shoulder. FINDINGS: No acute cortical disruption or malalignment. Minimal sclerosis along the articular surface of the acromioclavicular joint. No lytic or blastic lesions. XR/XR shoulder LT min 2V IMPRESSION: Mild degenerative changes, left acromioclavicular joint. Electronically signed by: Maxi Werner MD 04/05/2025 01:55 PM EDT
== END 2025-04-05 11:41 | disposition home or self-care (01) ==
LOC: HO.HOSX 11:40
PROVIDERS: PCP Registered Nurse; Visit Provider Physician Assistant
DX: Z01.419 Encounter for gynecological examination (general) (routine) without abnormal findings (principal); D06.9 Carcinoma in situ of cervix, unspecified; M25.512 Pain in left shoulder; M75.102 Unspecified rotator cuff tear or rupture of left shoulder, not specified as traumatic; M75.31 Calcific tendinitis of right shoulder; Z98.51 Tubal ligation status
CPT/HCPCS: 73030; 99212; 99396; 99459

== ENCOUNTER → 2025-04-05 11:50 | Outpatient (BNV) | payer MEDICAID, SELFPAY | PROVIDERS: PCP Registered Nurse; Visit Provider Radiology Diagnostic Radiology | DX: M19.012 Primary osteoarthritis, left shoulder (principal) | CPT/HCPCS: 73030 ==

== ENCOUNTER 2025-04-05 14:15 | Outpatient (AMB) | payer MEDICAID, SELFPAY ==
--- NOTE | 2025-04-05 14:24 | MHC.OFFVIS ---
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 No complaints. Last Pap/HPV was negative in 02/05 Last Mammogram was BI-RADS 1 in 03/08 Last screening colonoscopy was in 01/09, the recommendation was to repeat in 10 years [facility] Medical History YANELI III (cervical intraepithelial neoplasia grade III) with severe dysplasia Patient denies significant medical history Surgical History H/O LEEP H/O tubal ligation Family History Sister Ovarian cancer Social History Household Members Other:: [facility] Housing: Apartment Are you a primary critical care technician to a significant other at home: No Do you presently have visiting nurse or other home services: No Alcohol intake: never Patient Tobacco Use Status: Never used Tobacco Current occupational status: employed 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 Sexual orientation: Straight/Heterosexual Gender identity: Female Female Reproductive History Menstrual Age of Menarche: 9 Date of last pap smear: 01/28/24 Date of Mammogram: 03/01/24 Review of Systems Const All systems reviewed & are unremarkable except as noted in HPI and below Card Reports as per HPI Resp Reports as per HPI GI Reports as per HPI and Reports no additional complaints Reports as per HPI Physical Exam Vital Signs: Last Vital Signs BP 98/78 04/05/25 14:25 BMI result Body Mass Index 29.3 Const General: cooperative, healthy appearing and comfortable Chest Chest palpation & inspection: normal inspection of the chest and normal palpation of entire chest wall Breast/axilla inspection: normal inspection of the breasts and normal inspection of the axillae Breast/axilla palpation: normal palpation of the breasts, normal palpation of the axillae and no axillary lymphadenopathy Resp Effort & Inspection: normal respiratory effort Auscultation: clear to auscultation bilaterally Percussion: percussion normal Cardio Palpation: normal PMI Rate: regular rate Rhythm: regular rhythm Heart sounds: no murmurs and no rubs Peripheral pulses: Peripheral pulses 2+ throughout GI Inspection: Yes normal to inspection Palpation (GI): Soft to palpation, nontender, no guarding, not rigid and No hepatosplenomegaly present Percussion: Yes normal to percussion Auscultation: normal bowel sounds Rectal Exam - Female: deferred General: Yes bladder normal to palpation External Female Exam: No lesion Speculum Exam - Vagina: normal appearance of the vagina, normal palpation, normal vaginal discharge and not erythematous Speculum Exam - Cervix: normal appearance of the cervix and normal palpation Bimanual exam- vagina & uterus: normal bimanual exam, normal palpation, uterine size normal, bladder normal to palpation, consistency normal and normal palpation Bimanual Exam- Adnexa, other: normal adnexae, no masses and no tenderness Assessment & Plan Assessment & Plan (1) Well woman exam: Comment: History of YANELI 3 in 04/03 Code(s): Z01.419 - Encounter for gynecological examination (general) (routine) without abnormal findings Category: Medical Plan: Cotesting not indicated this year. Mammogram ordered. Counseled the patient about the recommended dietary allowance of 1000 mg of Calcium & 600 IU of vitamin D. The patient was instructed to perform monthly self-breast exams and to schedule an annual exam in a year; All questions answered and the patient verbalized understanding. Instructed the patient to schedule annual exam in a year Orders: Orders MM tomosynthesis screening BI Today Z12.31 - Encounter for screening mammogram for malignant neoplasm of breast Coding Level of Care Code Est Pt Prev Care 40-64y(13671) Diagnoses Well woman exam Z01.419
[2025-04-05 14:25] VITALS: BP 98/78; BMI 29.3
== END 2025-04-05 14:40 | disposition home or self-care (01) ==
LOC: HO.HWS 14:15
PROVIDERS: Visit Provider Obstetrics & Gynecology
DX: Z01.419 Encounter for gynecological examination (general) (routine) without abnormal findings (principal)
CPT/HCPCS: 99396; 99459

== ENCOUNTER 2025-04-23 13:18 | Outpatient (REF) | payer MEDICAID, SELFPAY ==
--- OUTSIDE RECORDS SUMMARY | 2025-04-23 15:01 | XMS_ITS | Clinical Summary ---
Author Organization [facility] Address [address] [place] [address] Care Team Providers Care Wrapper Sorter Name Role Phone Unavailable Primary Care Provider [...] Plan of Treatment Not on file Insurance [place]
== END 2025-04-23 13:19 | disposition home or self-care (01) ==
LOC: HO.MAMMO 13:18
PROVIDERS: PCP Registered Nurse; Visit Provider Obstetrics & Gynecology
DX: Z12.31 Encounter for screening mammogram for malignant neoplasm of breast (principal)
CPT/HCPCS: 77063; 77067

== ENCOUNTER → 2025-04-23 13:30 | Outpatient (BNV) | payer MEDICAID, SELFPAY | PROVIDERS: PCP Registered Nurse; Visit Provider Internal Medicine | DX: Z12.31 Encounter for screening mammogram for malignant neoplasm of breast (principal) | CPT/HCPCS: 77063; 77067 ==

== ENCOUNTER 2025-06-13 16:00 | Outpatient (RCR) | payer MEDICAID, SELFPAY ==
--- NOTE | 2025-05-10 07:53 | MHC.PT.EP ---
[facility] [place] Office [place] [facility] [place] Office [address] Lakeshia Curtis [address] [phone] F: [phone] F: [phone] F: [phone] F: [phone] Physical Therapy Plan of Care Date of Evaluation: 05/10/25 Date of Surgery: N/A Diagnosis: painful arc syndrome left shoulder (RL) Assessment: pt is a 45 y/o female presenting to physical therapy w/ referring diagnosis of painful arc syndrome left shoulder. Impairments include pain, decreased range of motion, decreased strength, impaired functional mobility, impaired postural awareness, and altered ambulation mechanics. pt is a good candidate for skilled PT due to age, potential remediation of impairments, typical disease/condition progression and prognosis, comorbidities, and motivation. pt would benefit from skilled PT intervention to provide a tailored strengthening and stretching exercise program, functional training, gait training, postural re-training, neuromuscular re-education, modalities as needed for pain, equipment safety demonstration. Frequency and Duration: The patient will be seen 2x/wk for 4 wks Short Term Goals: pt will be I w/ HEP to promote self-management of condition. pt will improve B shoulder flexion by at least 10* to promote ease in overhead reaching. 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 pt will report a statistically significant improvement in self-reported outcome measure, SPADI, to promote return to PLOF. Treatment Plan: Modalities to reduce pain, spasms and effusion. Manual therapy to restore motion and function. Therapeutic exercise to improve strength and flexibility. Neuromuscular re-education for posture and balance. Therapeutic activities to return to functional activities of daily living. Electronically signed by: Leigh Dolan PT, DPT Please sign and return to therapist. Thank you for your referral.
--- NOTE | 2025-06-25 10:20 | MHC.PT.DC ---
[facility] [place] Office [place] Office [place] Office [address] Lakeshia Curtis [address] [facility] [phone] F: [phone] F: [phone] F: [phone] F: [phone] Physical Therapy Discharge Report Diagnosis: painful arc syndrome left shoulder (RL) Date of Surgery: N/A Date of Evaluation: 05/10/25 Date of Discharge: 06/25/25 Treatments to Date: 7 Cancellations to Date: 0 No Shows to Date: 2 Discharge Status: Improved Function Independent with HEP Discharge Summary: The patient overall is reporting less shoulder pain. She is independent with her home exercise program. She is discharged from this physical therapy plan of care. Electronically signed by: Leigh Dolan PT, DPT Please sign and return to therapist. Thank you for your referral.
== END 2025-06-25 10:21 | disposition home or self-care (01) ==
LOC: HO.PT 16:00
PROVIDERS: PCP Registered Nurse; Visit Provider Physician Assistant
DX: M75.31 Calcific tendinitis of right shoulder (principal); M75.102 Unspecified rotator cuff tear or rupture of left shoulder, not specified as traumatic
CPT/HCPCS: 97110; 97140; 97161; 97530

== ENCOUNTER 2025-10-08 11:55 | Emergency (ER) | payer MEDICAID, SELFPAY ==
--- NOTE | ~2025-10-08 | XR_ITS ---
EXAMINATION: XR CHEST 2 VIEWS HISTORY: pain COMPARISON: There are no prior studies available for comparison. FINDINGS: PA and lateral views of the chest are submitted. The lungs are expanded and clear. There is no pleural effusion, pneumothorax, or pulmonary vascular congestion. The heart is normal in size. The bones are intact. XR/XR chest 2V IMPRESSION: Normal examination of the chest. Electronically signed by: Raymond Sosa MD 10/08/2025 12:47 PM [facility]
--- NOTE | ~2025-10-08 | XR_ITS ---
EXAMINATION: XR SHOULDER, LEFT CLINICAL INFORMATION: pain COMPARISON: April 05, 2025 TECHNIQUE: AP external rotation, Grashey, scapular Y views of the left shoulder. FINDINGS: Again seen is minimal osteophyte formation involving the acromion at the AC joint. There is no AC joint separation. Glenohumeral joint is not degenerated or dislocated. No acute abnormality is evident. No abnormal soft tissue calcifications are identified. XR/XR shoulder LT min 2V IMPRESSION: Mild AC joint arthropathy. No acute bony abnormality. Electronically signed by: Pj Navarro MD 10/08/2025 12:47 PM EST
[2025-10-08 12:02] VITALS: BP 141/64; PULSE 99; RESP 16; TEMP 36.3; O2SAT 97; BMI 29.7
--- NOTE | 2025-10-08 12:21 | ECG_ITS ---
Test Reason : neck pain Blood Pressure : */* mmHG Vent. Rate : 87 BPM Atrial Rate : 87 BPM P-R Int : 146 ms QRS Dur : 72 ms QT Int : 340 ms P-R-T Axes : 49 38 27 degrees QTcB Int : 409 ms Poor data quality, interpretation may be adversely affected Normal sinus rhythm Normal ECG No previous ECGs available Referred By: Hanna James Electronically Signed By: Sterling Fraga
--- NOTE | 2025-10-08 12:28 | ED_ITS ---
HPI - General Adult General Chief complaint: Neck Pain/Injury Stated complaint: General Medical Time Seen by Provider: 10/08/25 12:47 Source: patient Mode of arrival: ambulatory Limitations: no limitations History of Present Illness ED Provider: ISAEL Soto HPI narrative: 45-year-old female with medical history of painful arc syndrome of B/L shoulders, calcific tendinitis of right shoulder, presents to the ED due to 1 day of L shoulder pain. Patient reports she woke up yesterday with pain in the left side of her neck and shoulder. Patient reports pain is most significant when swallowing, but explain this as pain ?on the outside of her neck muscles? no pain in the throat or sore throat when swallowing and with movement. 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 Denies headache, visual changes, chest pain, SOB, abdominal pain, nausea, vomiting, difficulty swallowing, urinary symptoms MD complaint: L shoulder pain Related Data Home Medications ?Medication ?Instructions ?Recorded ?Confirmed fluticasone propionate 50 intranasal QAM 04/25/24 mcg/actuation nasal spray,suspension ibuprofen 400 mg tablet 400 mg PO TID 04/25/24 lidocaine 5 % topical patch patch topical 04/25/24 sodium chloride 0.9 % for ml inhalation Q4H PRN conges tion 04/25/24 nebulization Previous Rx's ?Medication ?Instructions ?Recorded acetaminophen 500 mg tablet 1,000 mg (2 x 500 mg) PO T ID PRN 03/07/23 pain #30 tabs sennosides 8.6 mg tablet (Natural 17.2 mg (2 x 8.6 mg) PO BEDTIME 04/25/24 Senna Laxative) constipation #60 tabs ketorolac 10 mg tablet 10 mg PO Q8H PRN pain 3 days #12 10/08/25 tabs Allergies Allergy/AdvReac Type Severity Reaction Status Date / Time No Known Allergies Allergy Verified 10/08/25 12:02 Review of Systems 2 Review of Systems: Yes all other systems are reviewed and are negative PMFSH Past Medical History Attestation statement: The following information was validated with the patient. Medical History YANELI III (cervical intraepithelial neoplasia grade III) with severe dysplasia Patient denies significant medical history Surgical History H/O LEEP H/O tubal ligation Family History Family History Sister Ovarian cancer Social History Social History Household Members Other:: [facility] Housing: Apartment Are you a primary patient care provider to a significant other at home: No Do you presently have visiting nurse or other home services: No Alcohol intake: never Patient Tobacco Use Status: Never used Tobacco Advance Directives: No Advance Directives Information Provided: Yes Current occupational status: employed 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 HEENT: ?NC, AT. MMM. EOMI, clear conjunctiva, oropharynx clear, uvula midline, no tonsillar exudates or tonsillar edema, no erythema, no vocal changes, patient tolerating oral secretions well, speaking in full clear sentences. NECK: ?Supple without lymphadenopathy.? No stiffness or restricted ROM. No TTP of cervical paraspinal muscles, no cervical spinal tenderness, no bony step-offs palpated, no anatomical abnormalities or rashes/lesions observed, no erythema, no edema, no warmth to the area, full ROM intact without pain including extension, flexion, lateral bending. I palpated trachea no pain to palpation, no pain when palpating the thyroid, no nodules or abnormalities felt on the thyroid, patient able to swallow without any tracheal abnormalities as my hands are in place, however does report pain of the left cervical paraspinal muscles while swallowing. HEART:? Normal rate and regular rhythm, normal S1/S1, no m/r/g LUNGS:? CTAB, moving air well. No crackles or wheezes are heard. ABDOMEN: ?Soft, nontender, nondistended with good bowel sounds heard. BACK: No CVAT, no obvious deformity. EXTREMITIES: ?Without cyanosis, clubbing or edema. NEUROLOGICAL: ?Grossly nonfocal. Alert and oriented, moving all 4 extremities. Observed to ambulate with normal gait. Skin: ?Warm and dry without any rash. Course Course Course Narrative: This is an RME: Additional HPI, ROS, PE not included below will be deferred to primary provider. RME assessment and note performed by: Hanna James PA-C This is a 45-year-old female who presents emergency department with complaints of left-sided neck pain and left shoulder pain which started yesterday. No recent trauma or injury. Denies any chest pain or shortness for breath. She states that her symptoms worsened with swallowing. Plan: labs, EKG, xray, further ER eval needed Medications Administered Discontinued Medications Generic Name Dose Route Start Last Admin Trade Name Freq PRN Reason Stop Dose Admin Acetaminophen 975 mg 10/08/25 13:37 10/08/25 13:57 Acetaminophen 325 Mg Tablet PO 10/08/25 13:38 975 mg ONCE ONE Administration Ketorolac Tromethamine 30 mg 10/08/25 13:37 10/08/25 13:58 Ketorolac Tromethamine 30 Mg/Ml Vial IM 10/08/25 13:38 30 mg ONCE ONE Administration Medical Decision Making Medical Decision Making [facility] Narrative: 45-year-old female with medical history of painful arc syndrome of B/L shoulders, calcific tendinitis of right shoulder, presents to the ED due to 1 day of L shoulder pain that is worse when she is swallowing, and moving is specific movements, but no difficulty swallowing, no pain of the actual throat or trachea when swallowing. Patient without radicular symptoms. VS on initial observation-BP 141/64, pulse rate of 99, respiratory rate of 16, afebrile with oral temp of 97.3?, O2 saturation 97% on room air. On physical exam patient is alert and oriented, non toxic appearing, in no acute distress, oropharynx clear, uvula midline, no tonsillar edema, no vocal changes, tolerating oral secretions without difficulty, speaking in full clear sentences, no lymphadenopathy, no thyroid irregularities to palpation, no cervical paraspinal muscle tenderness, full ROM intact, radial pulses 2+, no overlying skin changes. EKG reveals NSR without specific ST elevation/depresion, T-wave abnormality, prolonged QT, patient without chest pain, Troponin undetectable at < 2.7, patient without chest pain CXR WNL XR L shoulder reveals minimal osteophyte formation involving the acromion at the AC joint, no fracture or dislocation, no joint effusion Labs with a leukocytosis of 11.8, no other abnormalities. Patient with 1 day of left shoulder pain, that is worse when swallowing and in specific movements. Full ROM intact, no radicular symptoms, no weakness. I am unable to reproduce the pain on deep palpation. On chart review patient does follow [facility] orth[place] for bilateral shoulder pain, and was recommended for injections however patient declined this. I have counseled patient she may need more physical therapy and/or to trial injections for pain relief. Patient afebrile, without reduced ROM, no radicular symptoms, pain is most consistent with musculoskeletal strain. I counseled patient to follow up with orthopedics to ensure resolution of her symptoms and/or referral to physical therapy. Patient was medicated in the department with 975 mg p.o. Tylenol, 30 mg IM Toradol. Patient will be discharged with 3 day course of toradol for pain management with instructions to alternate tylenol and toradol. I counseled patient to follow up with orthopedics to ensure resolution of pain. Patient feels well enough to go home for self care. Patient in agreement with the plan. Differential Diagnosis Differential Diagnoses: The differential diagnosis associated with the presentation includes Foreign body Shoulder fracture Shoulder dislocation Torticollis Musculoskeletal strain Admission/Observation Consideration of admission/observation: Escalation of care including admission/observation considered Lab Data [facility] Lab Attestation statement: I reviewed the patient's lab results. 10/08/25 13:00 10/08/25 13:00 Labs: Lab Results 10/08/25 Range/Units 13:00 WBC 11.8 H (4.8-10.8) X10*3/uL RBC 4.87 (4.20-5.50) X10*6/uL Hgb 13.0 (12.0-16.0) g/dl Hct 39.4 (37.0-47.0) % MCV 80.9 (80.0-98.0) fL MCH 26.7 L (27.0-33.0) pg MCHC 33.0 (31.0-35.0) g/dl RDW 13.2 (11.0-16.0) % Plt Count 342 (160-400) X10*3/uL MPV 9.4 (9.4-12.3) fL Immature Gran % (Auto) 0.4 (0.0-0.4) % Neut % (Auto) 69.3 (45-73) % Lymph % (Auto) 22.5 (20-40) % Barron % (Auto) 5.9 (2-11) % Eos % (Auto) 1.4 (0-4) % Baso % (Auto) 0.5 (0-2) % Lymph # (Auto) 2.7 (1.2-4.9) X10*3/uL Barron # (Auto) 0.7 (0.1-1.2) X10*3/uL Eos # (Auto) 0.2 (0.0-0.4) X10*3/uL Baso # (Auto) 0.1 (0.0-0.2) X10*3/uL Abs Immat Gran (auto) 0.05 H (0.00-0.03) X10*3/uL Absolute Neuts (auto) 8.2 (2.0-8.3) x10*3/uL Absolute Nucleated RBC 0.000 (0.0-0.012) X10*3/uL Nucleated RBC % (auto) 0.0 (0.0-0.2) /100WBC Sodium 139 (135-145) mmol/L Potassium 4.0 (3.3-5.1) mmol/L Chloride 108 (96-108) mmol/L Carbon Dioxide 24 (22-29) mmol/L Anion Gap 11 L (12-20) BUN 13 (9-16) mg/dL Creatinine 0.71 (0.5-1.4) mg/dL Estim Creat Clear Calc 89.3 Estimated GFR > 60 Random Glucose 125 H (60-115) mg/dL Calcium 8.5 D (8.4-10.2) mg/dL Total Bilirubin 0.3 (0.0-1.0) mg/dL AST 21 (5-31) U/L ALT 29 (0-31) U/L Alkaline Phosphatase 64 (39-117) U/L Troponin I High Sens < 2.7 (<3.5-17.0) ng/L Total Protein 7.0 (6.5-8.0) g/dL Albumin 4.5 (3.5-5.0) g/dL Independent Interpretation I performed an independent interpretation of an: EKG and Plain X-Ray Interpretation: I personally interpreted the EKG which reveals normal sinus rhythm without ST- elevation/depression, T-wave abnormality, lengthened QT Vent. Rate : 87 BPM Atrial Rate : 87 BPM P-R Int : 146 ms QRS Dur : 72 ms QT Int : 340 ms P-R-T Axes : 49 38 27 degrees QTcB Int : 409 ms Poor data quality, interpretation may be adversely affected Normal sinus rhythm Normal ECG No previous ECGs available I personally interpreted the CXR which was negative for infiltrates, opacities, cardiomegaly, foreign body, I agree with the radiologist's interpretation I personally interpreted the XR L shoulder which was negative for fracture, dislocation, large joint effusion, I agree with the radiologist's interpretation Radiology Impression Discussion of test interpretation with radiology: I have reviewed the radiologist's reading. Radiologist Impression: CXR FINDINGS: PA and lateral views of the chest are submitted. The lungs are expanded and clear. There is no pleural effusion, pneumothorax, or pulmonary vascular congestion. The heart is normal in size. The bones are intact. XR/XR chest 2V IMPRESSION: Normal examination of the chest. Electronically signed by: Raymond Sosa MD 10/08/2025 12:47 PM EST RP Dictated By: Raymond Sosa MD Signed By: <Electronically signed by Raymond Sosa MD in OV> 10/08/25 1247 XR L shoulder FINDINGS: Again seen is minimal osteophyte formation involving the acromion at the AC joint. There is no AC joint separation. Glenohumeral joint is not degenerated or dislocated. No acute abnormality is evident. No abnormal soft tissue calcifications are identified. XR/XR shoulder LT min 2V IMPRESSION: Mild AC joint arthropathy. No acute bony abnormality. Electronically signed by: Pj Navarro MD 10/08/2025 12:47 PM EST RP Dictated By: Pj Navarro MD Signed By: <Electronically signed by Pj Navarro MD in OV> 10/08/25 2871 External Record Review External record reviewed: Inpatient record, Office record, Outpatient record and Prior outpatient radiology Prescription Management I considered prescription management with: Other (Flexeril) I considered muscle relaxer however patient without signs of muscle spasm, I believe pain can be treated with Tylenol and Toradol at this time. Discharge Plan Discharge Clinical Impression: Left shoulder pain Patient Disposition: Home, Self-Care Additional Instructions: You were evaluated in the emergency department for left shoulder/neck pain. Your x-rays show some arthritic changes within the AC joint which is the area where the clavicle meets the shoulder bones. Your x-rays were negative for bone fracture, dislocation. Your chest x-ray was normal. You were medicated in the department with 975 mg of Tylenol (acetaminophen), and 30 mg of IM Toradol. You are being discharged with a 3 day course of Toradol. While on this medication you can take 500 mg of Tylenol every 6 hours. Please do not take any other NSAIDs while taking toradol such as ibuprofen, Motrin, Aleve. Additionally, you can ice and/or or apply heat to the affected areas, and practice gentle stretching. Please follow up with the orthopedic doctors for further evaluation and management of your shoulder pain, they have recommended injections in the past, you may need these now or referral for physical therapy for pain management. Please return to the emergency department if you experience fevers over 100.4?, worsening shoulder pain, numbness and tingling of the limb, chest pain, shortness of breath, or any new/worsening/concerning symptoms. Prescriptions: New ketorolac 10 mg tablet 10 mg PO Q8H PRN (Reason: pain) 3 Days Qty: 12 0RF Rx Instructions: patient medicated with 30mg IM toradol in ED for pain management No Action acetaminophen 500 mg tablet 1,000 mg PO TID PRN (Reason: pain) Qty: 30 0RF sodium chloride 0.9 % solution for nebulization inhalation Q4H PRN (Reason: congestion) fluticasone propionate 50 mcg/actuation spray,suspension intranasal QAM lidocaine 5 % adhesive patch,medicated topical ibuprofen 400 mg tablet 400 mg PO TID sennosides [Natural Senna Laxative] 8.6 mg tablet 17.2 mg PO BEDTIME Qty: 60 3RF Stand Alone Forms: Work/School Release Interventions: ED Discharge Assessment Last Done: 10/08/25 14:08 Discharge Date/Time: 10/08/25 14:09 Print Language: Telugu
[2025-10-08 13:05] LABS: Hematocrit 39.4 % (37.0-47.0); Hemoglobin 13.0 g/dl (12.0-16.0); Imm Gran Abs Auto 0.05 X10*3/uL (0.00-0.03); Imm Gran Pct Auto 0.4 % (0.0-0.4); Lymphocytes Absolute Auto 2.7 X10*3/uL (1.2-4.9); MANUAL DIFF FLAG NO; Mean Corpuscular HGB Conc 33.0 g/dl (31.0-35.0); Mean Corpuscular Hemoglobin 26.7 pg (27.0-33.0); Mean Corpuscular Volume 80.9 fL (80.0-98.0); NRBC Abs Auto 0.000 X10*3/uL (0.0-0.012); NRBC Pct Auto 0.0 /100WBC (0.0-0.2); Platelet Count 342 X10*3/uL (160-400); Red Blood Count 4.87 X10*6/uL (4.20-5.50); White Blood Count 11.8 X10*3/uL (4.8-10.8)
[2025-10-08 13:33] LABS: Alanine Aminotransferase 29 U/L (0-31); Albumin Level 4.5 g/dL (3.5-5.0); Alkaline Phosphatase 64 U/L (39-117); Anion Gap 11 (12-20); Aspartate Amino Transferase 21 U/L (5-31); Blood Urea Nitrogen 13 mg/dL (9-16); Calcium 8.5 mg/dL (8.4-10.2); Carbon Dioxide 24 mmol/L (22-29); Chloride 108 mmol/L (96-108); Creatinine Clr Calc Pharmacy 89.3; Estimated Glomerular Filt Rate > 60; Potassium 4.0 mmol/L (3.3-5.1); Sodium 139 mmol/L (135-145); Total Protein 7.0 g/dL (6.5-8.0)
[2025-10-08 13:40] LABS: Troponin-I High Sensitivity < 2.7 ng/L (<3.5-17.0)
[2025-10-08 14:08] VITALS: BP 141/64; PULSE 99; RESP 16; TEMP 36.3; O2SAT 97
--- OUTSIDE RECORDS SUMMARY | 2025-10-08 17:08 | XMS_ITS | Clinical Summary ---
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 DO NOT CRUSH, CHEW, OR SPLIT. 90 tablet 5 Active Active Problems Problem Noted [...] 72 hours (temperature should be less than 100 F without medication). Primary insomnia 08/28/2015 Vitamin D deficiency 08/28/2015 Encounters Date Type Department Care Team Description 10/08/2025 Orders Only [facility] External Provider, [facility] 08/27/2025 Telephone [facility] [address] [place] [address] [facility] recall from Last 3 Months Immunizations Immunization Administration [...] 86 03/12/2025 10:57 AM EDT Temperature 36.3 C (97.4 F) 03/12/2025 10:57 AM EDT Respiratory Rate 20 03/12/2025 10:5 7 AM EDT Oxygen Saturation 99% 03/12/2025 10: 57 AM EDT Inhaled Oxygen Concentration - - Weight 70.7 kg (155 lb 12.8 oz) 025 10:57 AM EDT Height 154.9 cm (5' 1 ) 03/12/2025 10:5 7 AM EDT Body Mass Index 29.44 03/12/2025 10:57 AM EDT Plan of Treatment Upcoming Encounters Date Type Department Care Team (Late st Contact Info) Description 11/07/2025 10:30 AM EST Office Visit [facility] [address] [place] [address] [facility], [facility] [address] [place] [address] Health Maintenance Due Date Last Done Comments CT Colonography 1979 FIT DNA/Cologuard 1979 FIT 1979 FOBT 1979 Sigmoidoscopy 1979 Alcohol/Substance Use Screening 1991 Family Planning (PISQ) 1994 Hepatitis C Screening 1997 Hepatitis B Vaccines (1 of 3 - 19+ 3-dose series) 1998 COVID-19 Vaccine ( - 2024-2 6 season) 2025 10/06/2021, 09/15/2021 Influenza Vaccine (#1) 2025 SDOH Screening 02/28/2026 02/28/2025 Depression Screening 03/12/2026 03/12/2025, 03/12/2025 Disability Screening 03/12/2026 03/12/2025 Tobacco Screening 03/14/2026 03/14/2025 Mammogram 04/23/2026 04/23/2025, 03/01/2024, 02/22/2023 DTaP/Tdap/Td Vaccines (2 - T d or Tdap) 10/19/2026 10/19/2016, 10/14/2007 Cervical Cancer Screening 12/09/2027 HPV/Cotest 12/09/2027 10/11/2018 Pap Smear 12/09/2027 12/09/2022 Zoster Vaccines (1 of 2) 2029 Colonoscopy 12/22/2034 12/22/2024, 12/22/2024 Colorectal Cancer Screening 12/22/2034 RSV Patients [...] Years) and At-Risk Patients (6 to 49) Years Aged Out No longer eligible b ased on patient's age to complete this topic RSV under 20 months Aged Out No longe r eligible based on patient's age to complete this topic Rotavirus Vaccines Aged Out No longer eligible based on patient's age to complete this topic Procedures Procedure Name Priority Date/Time Associated Diagnosis Comments HIGH SENSITIVITY TROPONIN I Routine 10/08/2025 1:00 PM EST COMPREHENSIVE METABOLIC PANEL Routine 10/08/2025 1:00 PM EST CBC WITH AUTO DIFFERENTIAL Routine 10/08/2025 1:00 PM EST XR SHOULDER 2+ VIEWS LEFT Routine 10/08/2025 12:37 PM EST XR CHEST 2 VIEWS Routine 10/08/2025 12:3 6 PM EST BI MAMMOGRAM SCREENING TOMOSYNTHESIS BILATERAL Routine 04/23/2025 1:20 PM EDT HM COLONOSCOPY Routine 12/22/2024 PAP SMEAR Routine 12/09/2022 11:39 AM EST HIV 1/2 ANTIGEN/ANTIBODY, FOURTH GENERATION W/RFL Routine 09/11/2020 1:30 PM EDT ZZZ HISTORICAL HPV MRNA E6/E7 Routine 10/11/2018 10:53 AM EST from Last 3 Months or Most Recently Relevant to Health Maintenance Results * High Sensitivity Troponin I (10/08/2025 1:00 PM EST) TROPONIN I HIGH SENSITIVITY <2.7 <3.5 - 17.0 ng/L [facility] Comment:The Martinez high sens itivity Troponin-I results should beused in conjunction with other diagnostic information suchas ECG, clinical observations and information, and patientsymptoms to aid in the diagnosis of CA. 10/08/2025 1:00 PM EST 10/08/2025 1:03 PM EST us Generic External Data Provider LAB BLOOD ORDERAB LES Final Result [facility] [address] [place] [address] [phone] * (ABNORMAL) CBC auto differential (10/08/2025 1:00 PM EST) White Blood Count 11.8(H) 4.8 - 10.8 X10*3/uL [facility] Red Blood Count 4.87 4.20 - 5.50 X10*6/uL [facility] Hemoglobin 13.0 12.0 - 16.0 g/dl [facility] Hematocrit 39.4 37.0 - 47.0 % [facility] Mean Corpuscular Volume 80.9 80.0 - 98.0 fL [facility] Mean Corpuscular Hemoglobin 26.7(L) 27.0 - 33.0 pg [facility] Mean Corpuscular HGB Conc 33.0 31.0 - 35.0 g/dl [facility] Red Cell Distribution Width 13.2 11.0 - 16.0 % [facility] Platelet Count 342 160 - 400 X10*3/uL [facility] Mean Platelet Volume 9.4 9.4 - 12.3 fL [facility] Neutrophils Percent Auto 69.3 45 - 73 % [facility] Imm Gran Pct Auto 0.4 0.0 - 0.4 % [facility] Lymphocytes Percent Auto 22.5 20 - 40 % [facility] Monocytes Percent Auto 5.9 2 - 11 % [facility] Eosinophils Percent Auto 1.4 0 - 4 % [facility] Basophils Percent Auto 0.5 0 - 2 % [facility] NRBC Pct Auto 0.0 0.0 - 0.2 /100WBC [facility] Neutrophils Absolute Auto 8.2 2.0 - 8.3 x10*3/uL [facility] Imm Gran Abs Auto 0.05(H) 0.00 - 0.03 X10*3/uL [facility] Lymphocytes Absolute Auto 2.7 1.2 - 4.9 X10*3/uL [facility] Monocytes Absolute Auto 0.7 0.1 - 1.2 X10*3/uL [facility] Eosinophils Absolute Auto 0.2 0.0 - 0.4 X10*3/uL [facility] Basophils Absolute Auto 0.1 0.0 - 0.2 X10*3/uL [facility] NRBC Abs Auto 0.000 0.0 - 0.012 X10*3/uL [facility] 10/08/2025 1:00 PM EST 10/08/2025 1:03 PM EST us Generic External Data Provider LAB BLOOD ORDERAB LES Final Result [facility] [address] [place] [address] [phone] * (ABNORMAL) Comprehensive Metabolic Panel (10/08/2025 1:00 PM EST) Sodium 139 135 - 145 mmol/L [facility] Potassium 4.0 3.3 - 5.1 mmol/L [facility] Chloride 108 96 - 108 mmol/L [facility] Carbon Dioxide 24 22 - 29 mmol/L [facility] Anion Gap 11(L) 12 - 20 [facility] Urea Nitrogen (BUN) 13 9 - 16 mg/dL [facility] Creatinine, Serum 0.71 0.5 - 1.4 mg/dL [facility] Creatinine Clr Calc Pharmacy 89.3 [facility] Comment:Provided height and weight: 154.94 cm,71.2 kg.eGFR (calculated from the MDRD study equation) and eCrCl(calculated from the Cockcroft-Gault equation) are based ondifferent parameters and may not yield comparable results.If eCrCl result is absurd, please check patient'sheight/weight. Estimated Glomerular Filt Rate >60 [facility] Comment:Chronic Kidney Disea se: Estimated GFR < 60 mL/min/1.86i0Zowzkr Kidney Disease: Estimated GFR < 15 mL/min/1.73m2 Glucose 125(H) 60 - 115 mg/dL [facility] Calcium 8.5 8.4 - 10.2 mg/dL [facility] Bilirubin, Total 0.3 0.0 - 1.0 mg/dL [facility] Aspartate Amino Transferase 21 5 - 31 U/L [facility] Alanine Aminotransferase 29 0 - 31 U/L [facility] Total Protein 7.0 6.5 - 8.0 g/dL [facility] Albumin Level 4.5 3.5 - 5.0 g/dL [facility] Alkaline Phosphatase 64 39 - 117 U/L [facility] 10/08/2025 1:00 PM EST 10/08/2025 1:03 PM EST us Generic External Data Provider LAB BLOOD ORDERAB LES Final Result [facility] [address] [place] [phone] * XR Shoulder 2+ Views Left (10/08/2025 12:37 PM EST) Anatomical Region Laterality Modality Upper Extremities, Shoulder Left Radi ographic Imaging 10/08/2025 12:3 7 PM EST Narrative 10/08/2025 12:50 PM EST [address] [address] XRay Report Signed Patient: Sally Butler MR#: [id number] : 1980 Acct:[id number] Age/Sex: 45 / F ADM Date: 10/08/25 Loc: HO.ED Attending Dr: Ordering Physician: Hanna James Date of Service: 10/08/25 Procedure(s): XR shoulder LT min 2V Accession Number(s): [id number] cc: Hanna James; [facility] Reason for Exam: pain EXAMINATION: XR SHOULDER, LEFT CLINICAL INFORMATION: pain COMPARISON: April 05, 2025 TECHNIQUE: AP external rotation, Grashey, scapular Y views of the left shoulder. FINDINGS: Again seen is minimal osteophyte formation involving the acromion at the AC joint. There is no AC joint separation. Glenohumeral joint is not degenerated or dislocated. No acute abnormality is evident. No abnormal soft tissue calcifications are identified. XR/XR shoulder LT min 2V IMPRESSION: Mild AC joint arthropathy. No acute bony abnormality. Electronically signed by: Pj Navarro MD 10/08/2025 12:47 PM [facility] Dictated By: Pj Navarro MD Signed By: <Electronically signed by Pj Navarro MD in OV> 10/08/25 1247 DD/ 1237 TD/TT: 10/08/25 1238 Restaurant Assistant: Procedure Note Donotuseinterpreter, Image - 10/08/[address] [address] XRay Report Signed Patient: Sally ButlerMR#: [id number] : 1980Acct:[id number] Age/Sex: 45 / FADM Date: 10/08/25 Loc: HO.ED Attending Dr: Ordering Physician: Hanna James Date of Service: 10/08/25 Procedure(s): XR shoulder LT min 2V Accession Number(s): [id number] cc: Hanna James; [facility] Reason for Exam: pain EXAMINATION: XR SHOULDER, LEFT CLINICAL INFORMATION: pain COMPARISON: April 05, 2025 TECHNIQUE: AP external rotation, Grashey, scapular Y views of the left shoulder. FINDINGS: Again seen is minimal osteophyte formation involving the acromion at the AC joint. There is no AC joint separation. Glenohumeral joint is not degenerated or dislocated. No acute abnormality is evident. No abnormal soft tissue calcifications are identified. XR/XR shoulder LT min 2V IMPRESSION: Mild AC joint arthropathy. No acute bony abnormality. Electronically signed by: Pj Navarro MD 10/08/2025 12:47 PM EST RP Dictated By: Pj Navarro MD Signed By: <Electronically signed by Pj Navarro MD in OV> 10/08/25 1247 DD/ 1237 TD/TT: 10/08/25 1238 Restaurant Assistant: [facility] External Provider IMG XR PROCEDURES Final Result * XR Chest 2 Views (10/08/2025 12:36 PM EST) Anatomical Region Laterality Modality Chest Radiographic Gabby ging 10/08/2025 12:3 6 PM EST Narrative 10/08/2025 12:49 PM EST [address] [address] XRay Report Signed Patient: Sally Butler MR#: [id number] : 1980 Acct:[id number] Age/Sex: 45 / F ADM Date: 10/08/25 Loc: .ED Attending Dr: Ordering Physician: Hanna James Date of Service: 10/08/25 Procedure(s): XR chest 2V Accession Number(s): [id number] cc: Hanna James; [facility] Reason for Exam: pain EXAMINATION: XR CHEST 2 VIEWS HISTORY: pain COMPARISON: There are no prior studies available for comparison. FINDINGS: PA and lateral views of the chest are submitted. The lungs are expanded and clear. There is no pleural effusion, pneumothorax, or pulmonary vascular congestion. The heart is normal in size. The bones are intact. XR/XR chest 2V IMPRESSION: Normal examination of the chest. Electronically signed by: Raymond Sosa MD 10/08/2025 12:47 PM EST RP Dictated By: Raymond Sosa MD Signed By: <Electronically signed by Raymond Sosa MD in OV> 10/08/25 1247 DD/ 1236 TD/TT: 10/08/25 1238 Restaurant Assistant: Procedure Note Donotuseinterpreter, Image - 10/08/[address] [place] [address] XRay Report Signed Patient: Sally ButlerMR#: [id number] : 1980Acct:[id number] Age/Sex: 45 / FADM Date: 10/08/25 Loc: HO.ED Attending Dr: Ordering Physician: Hanna James Date of Service: 10/08/25 Procedure(s): XR chest 2V Accession Number(s): [id number] cc: Hanna James; [facility] Reason for Exam: pain EXAMINATION: XR CHEST 2 VIEWS HISTORY: pain COMPARISON: There are no prior studies available for comparison. FINDINGS: PA and lateral views of the chest are submitted. The lungs are expanded and clear. There is no pleural effusion, pneumothorax, or pulmonary vascular congestion. The heart is normal in size. The bones are intact. XR/XR chest 2V IMPRESSION: Normal examination of the chest. Electronically signed by: Raymond Sosa MD 10/08/2025 12:47 PM [facility] Dictated By: Raymond Sosa MD Signed By: <Electronically signed by Raymond Sosa MD in OV> 10/08/25 1247 DD/ 1236 TD/TT: 10/08/25 1238 Restaurant Assistant: [facility] External Provider IMG XR PROCEDURES Final Result * BI Mammogram Screening Tomosynthesis Bilateral (04/23/2025 1:20 PM EDT) Anatomical Region Laterality Modality Breast Bilateral Mammography 04/23/2025 1:20 PM EDT Narrative 04/30/2025 3:09 PM EDT [address] [place] [address] Mammography Report Signed Patient: Sally Butler MR#: [id number] : 1980 Acct:[id number] Age/Sex: 45 / F ADM Date: 04/23/25 Loc: MAMMO Attending Dr: Shahriar Guevara MD Ordering Physician: Shahriar Guevara MD Results: 1Negativ e Date of Service: 04/23/25 Follow Up: 1 Year From Orig ina Mammogram Procedure(s): MM tomosynthesis screening BI Accession Number(s): [id number] cc: [facility]; Shahriar Guevara MD EXAMINATION: MM SCREENING DIGITAL BREAST TOMOSYNTHESIS, BILATERAL CLINICAL INFORMATION: Screening. Asymptomatic. COMPARISON: Mammography: Comparison is made with available priors TECHNIQUE: Digital breast mammography with tomosynthesis is performed in both the craniocaudal and mediolateral oblique views along with computer-aided detection (CAD). FINDINGS: There are scattered areas of fibroglandular [...] target due date for their next mammogram. Electronically signed by: Dipti Martinez DO 04/30/2025 03:06 PM EDT Dictated By: Dipti Martinez DO Signed By: <Electronically signed by Dipti Martinez DO in OV> 04/30/25 1506 DD/ 1320 TD/TT: 04/23/25 1345 Restaurant Assistant: Procedure Note Donotuseinterpreter, Image - 04/30/2025 [facility] [address] [place] [address] Dr. [place], [place] [address] Mammography Report Signed Patient: Sally ButlerMR#: [id number] : 1980Acct:[id number] Age/Sex: 45 / FADM Date: 04/23/25 Loc: HO.MAMMO Attending Dr: Shahriar Guevara MD Ordering Physician: Shahriar Guevara MDResults: 1Negativ e Date of Service: 04/23/25Follow Up: 1 Year From Orig inal Mammogram Procedure(s): MM tomosynthesis screening BI Accession Number(s): [id number] cc: [facility]; Shahriar Guevara MD EXAMINATION: MM SCREENING DIGITAL BREAST TOMOSYNTHESIS, BILATERAL CLINICAL INFORMATION: Screening. Asymptomatic. COMPARISON: Mammography: Comparison is made with available priors TECHNIQUE: Digital breast mammography with tomosynthesis is performed in both the craniocaudal and mediolateral oblique views along with computer-aided detection (CAD). FINDINGS: There are scattered areas of fibroglandular [...] target due date for their next mammogram. Electronically signed by: Dipti Martinez DO 04/30/2025 03:06 PM EDT Dictated By: Dipti Martinez DO Signed By: <Electronically signed by Dipti Martinez DO in OV> 04/30/25 1506 DD/ 1320 TD/TT: 04/23/25 1345 Restaurant Assistant: [facility] External Provider IMG BI PROCEDURES Final Result * Hm Colonoscopy (12/22/2024) Colonoscopy Normal Normal Comment:Repeat 10 years Historical Provider HEALTH MAINTENANCE Final Result * Pap Smear (12/09/2022 11:39 AM EST) 12/09/2022 11:3 9 AM EST 12/09/2022 1:00 PM EST Narrative [facility] - 12/18/2022 6:29 PM EST ----- ------- Name: Sally Butler Age/Sex: 42/F : 1980 Unit#: [id number] Attend Dr: Shahriar Guevara MD Re12/09/22 Status: [facility] REF Location: [facility] Disch: ----- ------- SPEC : [id number] RECD: 12/09/22-1300 STATUS: KIRIT GUADALUPE NUM: [id number] MARK: 12/09/22-[address] [facility] [address]: Shahriar Guevara MD ENTERED: 12/09/22-1320 SP TYPE: Pap Smr OTHR DR: Sophie Bettencourt NP ORDERED: Pap Smear Interpretation Satisfactory for evaluation. Negative for intraepithelial lesion or malignancy. HPV mRNA E6/E7: NOT DETECTED This assay detects E6/E7 viral messenger RNA (mRNA) from 14 high-risk HPV types (16, 18, 31, 33, 35, 39, 45, 51, 52, 56, 58, 59, 66, 68) HPV testing performed by [facility], [place], [place]. See reference laboratory portion of the EMR for entire report. Clinical Information LMP: 11/2022 Previous PAP test: 2020, WNL Material Received ThinPrep-Cervical Copies To: Sophie Bettencourt [employer] [address] [place] [address] Shahriar Guevara MD [address] [place] [address] [address] ----- ------- Signed (signature on file) Hanna Bose 12/18/22 1829 ----- ------- END OF REPORT [facility] External Provider LAB CYT [facility] ORDERABLES Final Result [facility] [address] [place] [phone] * HIV 1/2 ANTIGEN/ANTIBODY,FOURTH GENERATION W/RFL (09/11/2020 1:30 PM EDT) [facility] HIV-1/2 ANTIGEN AND ANTIBODIES, 4TH GENERATION W/ REFLEX NON-REACT MIKHAIL NON-REACT MIKHAIL [facility] Comment: HIV-1 antigen and HIV-1/HIV-2 antibodies were not detected. There is no laboratory evidence of HIV infection. PLEASE NOTE: This information has been disclosed to you from records whose confidentiality may be protected by state law. If your state requires such protection, then the state law prohibits you from making any further disclosure of the information without the specific written consent of the person to whom it pertains, or as otherwise permitted by law. A general authorization for the release of medical or other information is NOT sufficient for this purpose. For additional information please refer to http://education.Paradine/faq/RZP018 (This link is being provided for informational/ educational purposes only.) The performance of this assay has not been clinically validated in patients less than 2 years old. HIV-1/2 ANTIGEN AND ANTIBODIES, 4TH GENERATION W/ REFLEX NON-REACT MIKHAIL NON-REACT MIKHAIL [facility] Comment: HIV-1 antigen and HIV-1/HIV-2 antibodies were not detected. There is no laboratory evidence of HIV infection. PLEASE NOTE: This information has been disclosed to you from records whose confidentiality may be protected by state law. If your state requires such protection, then the state law prohibits you from making any further disclosure of the information without the specific written consent of the person to whom it pertains, or as otherwise permitted by law. A general authorization for the release of medical or other information is NOT sufficient for this purpose. For additional information please refer to http://Stream5.Paradine/faq/OLK722 (This link is being provided for informational/ educational purposes only.) The performance of this assay has not been clinically validated in patients less than 2 years old. 09/11/2020 1:30 PM EDT us Rosa Hand NP LAB BLOOD ORDERABLES Final Resul t [facility] [address] * (ABNORMAL) HPV mRNA E6/E7 (10/11/2018 10:53 AM EST) HPV mRNA E6/E7 DETECTED (AA) NOT DETECTED [facility] Comment: This test was performed using the APTIMA(R) HPV Assay ([employer] This assay detects E6/E7 viral messenger RNA (mRNA) from 14 high-risk HPV types (16,18,31,33,35,39,45,51, 52,56,58,59,66,68). For additional information please refer to: http://Stream5.Paradine/faq/LXZ881u9 (This link is being provided for informational/ educational purposes only.) The analytical performance characteristics of this assay have been determined by [facility] [place], [place]. The modifications have not been cleared or approved by the FDA. This assay has been validated pursuant to the CLIA regulations and is used for clinical purposes. Test Performed by [employer], [facility], [address] [place] [address] Hadley An M.D., Ph.D., Director of Laboratories , CLIA [id number] Please note: Effective 07/27/2016, HPV testing will be performed using [facility]'s APTIMA test which targets mRNA. Detecting mRNA instead of DNA, as in older methods, offers significant improvements in specificity. 10/11/2018 10:5 3 AM EST us Rosa Hand NP HISTORICAL/NON ORDERABLE LABS Fi nal Result [facility] [address] from Last 3 Months or Most Recently Relevant to Health Maintenance [facility] Care Teams Plant Maintenance Worker Relationship Specialty Start Date End Date Barbie Joseph FNP [address] [place] [phone] PCP - General Family Medicine 07/14/24
--- OUTSIDE RECORDS SUMMARY | 2025-10-08 17:08 | XMS_ITS | Encounter Summary ---
Author Organization [employer] Address [address] [place] [address] [address] [place] [address] Care Team Providers Care Recreational Programs Director Name Role Phone Sophie Bettencourt [facility] Primary Care Provider [phone] [facility] Primary Care Provider [phone] Reason for Visit * Reason Onset Date Comments triage 04/13/2023 Encounter Details Date Type Department Care Team ([facility] st Contact Info) Description 04/13/2023 Telephone [facility] [address] [place] [address] Sophie Bettencourt FNP [address] [place] [address] triage Social History Tobacco Use Types Packs/Day [...] accepted this outcome Please contact pt at [phone] documented in this encounter Plan of Treatment Upcoming Encounters Date Type Department Care Team (Late st Contact Info) Description 11/07/2025 10:30 AM EST Office Visit [facility] [address] [place] [address] Barbie Joseph FNP [address] [place] [address] documented as of this encounter Visit Diagnoses Not on filedocumented in this encounter Additional Health Concerns Assessment Noted Time PHQ-9 Depression Total Score: 4 12/04/19 23 10:49 AM EST documented as of this encounter Care Teams Recreational Programs Director Relationship Specialty Start Date End Date Sophie Bettencourt FNP [address] [place] [phone] PCP - General Family Medicine 12/04/22 07/13/24 Barbie Joseph FNP [address] [place] [address] PCP - General Family Medicine 07/14/24 documented as of this encounter
--- OUTSIDE RECORDS SUMMARY | 2025-10-08 17:08 | XMS_ITS | Encounter Summary ---
Author Organization [employer] Address [address] [facility] 7t [place] [address] Care Team Providers Care Popcorn Attendant Name Role Phone Barbie Joseph [facility] Primary Care Provider [phone] Encounter Details Date Type Department Care Team (Late st Contact Info) Description 10/08/2025 Orders Only [facility] External Provider, [facility] Social History Tobacco Use Types Packs/Day Years [...] as of this encounter Plan of Treatment Upcoming Encounters Date Type Department Care Team (Late st Contact Info) Description 11/07/2025 10:30 AM EST Office Visit [facility] [address] [place], [place] [phone] [facility] [employer]ATER [address] [place], [place] [phone] documented as of this encounter Procedures Procedure Name Priority Date/Time Associated Diagnosis Comments HIGH SENSITIVITY TROPONIN I Routine 10/08/2025 1:00 PM EST CBC WITH AUTO DIFFERENTIAL Routine 10/08/2025 1:00 PM EST COMPREHENSIVE METABOLIC PANEL Routine 10/08/2025 1:00 PM EST XR SHOULDER 2+ VIEWS LEFT Routine 10/08/2025 12:37 PM EST XR CHEST 2 VIEWS Routine 10/08/2025 12:3 6 PM EST documented in this encounter Results * High Sensitivity Troponin I (10/08/2025 1:00 PM EST) TROPONIN I HIGH SENSITIVITY <2.7 <3.5 - 17.0 ng/L [facility] Comment:The Martinez high sens itivity Troponin-I results should beused in conjunction with other diagnostic information suchas ECG, clinical observations and information, and patientsymptoms to aid in the diagnosis of NH. 10/08/2025 1:00 PM EST 10/08/2025 1:03 PM EST us Generic External Data Provider LAB BLOOD ORDERAB LES Final Result [facility] [address] [place] [phone] * (ABNORMAL) Comprehensive Metabolic Panel (10/08/2025 1:00 PM EST) Sodium 139 135 - 145 mmol/L [facility] Potassium 4.0 3.3 - 5.1 mmol/L [facility] Chloride 108 96 - 108 mmol/L [facility] Carbon Dioxide 24 22 - 29 mmol/L [facility] Anion Gap 11(L) 12 - 20 [facility] Urea Nitrogen (BUN) 13 9 - 16 mg/dL [facility] Creatinine, Serum 0.71 0.5 - 1.4 mg/dL [facility] Creatinine Clr Calc Pharmacy 89.3 [facility] Comment:Provided height and weight: 154.94 cm,71.2 kg.eGFR (calculated from the MDRD study equation) and eCrCl(calculated from the Cockcroft-Gault equation) are based ondifferent parameters and may not yield comparable results.If eCrCl result is absurd, please check patient'sheight/weight. Estimated Glomerular Filt Rate >60 [facility] Comment:Chronic Kidney Disea se: Estimated GFR < 60 mL/min/1.68q4Nleffu Kidney Disease: Estimated GFR < 15 mL/min/1.73m2 Glucose 125(H) 60 - 115 mg/dL [facility] Calcium 8.5 8.4 - 10.2 mg/dL [facility] Bilirubin, Total 0.3 0.0 - 1.0 mg/dL [facility] Aspartate Amino Transferase 21 5 - 31 U/L [facility] Alanine Aminotransferase 29 0 - 31 U/L [facility] Total Protein 7.0 6.5 - 8.0 g/dL [facility] Albumin Level 4.5 3.5 - 5.0 g/dL [facility] Alkaline Phosphatase 64 39 - 117 U/L [facility] 10/08/2025 1:00 PM EST 10/08/2025 1:03 PM EST us Generic External Data Provider LAB BLOOD ORDERAB LES Final Result [facility] [address] [place] [address] [phone] * (ABNORMAL) CBC auto differential (10/08/2025 1:00 PM EST) White Blood Count 11.8(H) 4.8 - 10.8 X10*3/uL [facility] Red Blood Count 4.87 4.20 - 5.50 X10*6/uL [facility] Hemoglobin 13.0 12.0 - 16.0 g/dl [facility] Hematocrit 39.4 37.0 - 47.0 % [facility] Mean Corpuscular Volume 80.9 80.0 - 98.0 fL [facility] Mean Corpuscular Hemoglobin 26.7(L) 27.0 - 33.0 pg [facility] Mean Corpuscular HGB Conc 33.0 31.0 - 35.0 g/dl [facility] Red Cell Distribution Width 13.2 11.0 - 16.0 % [facility] Platelet Count 342 160 - 400 X10*3/uL [facility] Mean Platelet Volume 9.4 9.4 - 12.3 fL [facility] Neutrophils Percent Auto 69.3 45 - 73 % [facility] Imm Gran Pct Auto 0.4 0.0 - 0.4 % [facility] Lymphocytes Percent Auto 22.5 20 - 40 % [facility] Monocytes Percent Auto 5.9 2 - 11 % [facility] Eosinophils Percent Auto 1.4 0 - 4 % [facility] Basophils Percent Auto 0.5 0 - 2 % [facility] NRBC Pct Auto 0.0 0.0 - 0.2 /100WBC [facility] Neutrophils Absolute Auto 8.2 2.0 - 8.3 x10*3/uL [facility] Imm Gran Abs Auto 0.05(H) 0.00 - 0.03 X10*3/uL [facility] Lymphocytes Absolute Auto 2.7 1.2 - 4.9 X10*3/uL [facility] Monocytes Absolute Auto 0.7 0.1 - 1.2 X10*3/uL [facility] Eosinophils Absolute Auto 0.2 0.0 - 0.4 X10*3/uL [facility] Basophils Absolute Auto 0.1 0.0 - 0.2 X10*3/uL [facility] NRBC Abs Auto 0.000 0.0 - 0.012 X10*3/uL [facility] 10/08/2025 1:00 PM EST 10/08/2025 1:03 PM EST us Generic External Data Provider LAB BLOOD ORDERAB LES Final Result Performing Organization Address City/State/[facility] Co de Phone Number [facility] [address] [place] [phone] * XR Shoulder 2+ Views Left (10/08/2025 12:37 PM EST) Anatomical Region Laterality Modality Upper Extremities, Shoulder Left Radi ographic Imaging 10/08/2025 12:3 7 PM EST Narrative 10/08/2025 12:50 PM EST [address] [address] XRay Report Signed Patient: Sally Butler MR#: [id number] : 1980 Acct:[id number] Age/Sex: 45 / F ADM Date: 10/08/25 Loc: HO.ED Attending Dr: Ordering Physician: Hanna James Date of Service: 10/08/25 Procedure(s): XR shoulder LT min 2V Accession Number(s): [id number] cc: Hanna James; [facility] Reason for Exam: pain EXAMINATION: XR SHOULDER, [...] 10/08/25 1247 DD/ 1237 TD/TT: 10/08/25 1238 Captain Room Service: Procedure Note Donotuseinterpreter, Image - 10/08/2025 [place] [address] XRay Report Signed Patient: Sally ButlerMR#: [id number] : 1980Acct:[id number] Age/Sex: 45 / FADM Date: 10/08/25 Loc: .ED Attending Dr: Ordering Physician: Hanna James Date of Service: 10/08/25 Procedure(s): XR shoulder LT min 2V Accession Number(s): [id number] cc: Hanna James; [facility] Reason for Exam: pain EXAMINATION: XR SHOULDER, [...] 10/08/25 1247 DD/ 1237 TD/TT: 10/08/25 1238 Captain Room Service: [facility] External Provider IMG XR PROCEDURES Final Result * XR Chest 2 Views (10/08/2025 12:36 PM EST) Anatomical Region Laterality Modality Chest Radiographic Gabby ging 10/08/2025 12:3 6 PM EST Narrative 10/08/2025 12:49 PM EST [address] [address] XRay Report Signed Patient: Sally Butler MR#: [id number] : 1980 Acct:[id number] Age/Sex: 45 / F ADM Date: 10/08/25 Loc: .ED Attending Dr: Ordering Physician: Hanna James Date of Service: 10/08/25 Procedure(s): XR chest 2V Accession Number(s): [id number] cc: Hanna James; [facility] Reason for Exam: pain EXAMINATION: XR CHEST [...] 10/08/25 1247 DD/ 1236 TD/TT: 10/08/25 1238 Captain Room Service: Procedure Note Donotuseinterpreter, Image - 10/08/2025 [place] [address] [place] [address] XRay Report Signed Patient: Sally ButlerMR#: [id number] : 1980Acct:[id number] Age/Sex: 45 / FADM Date: 10/08/25 Loc: .ED Attending Dr: Ordering Physician: Hanna James Date of Service: 10/08/25 Procedure(s): XR chest 2V Accession Number(s): [id number] cc: Hanna James; [facility]ab[facility]bie [facility] Reason for Exam: pain EXAMINATION: XR CHEST [...] by: Raymond Sosa MD 10/08/2025 12:47 PM [facility] Dictated By: Raymond Sosa MD Signed By: <Electronically signed by Raymond Sosa MD in OV> 10/08/25 1247 DD/ 1236 TD/TT: 10/08/25 1238 Captain Room Service: [facility] External Provider IMG XR PROCEDURES Final Result documented in this encounter Visit Diagnoses Not on filedocumented in this encounter Additional Health Concerns Assessment Noted Time PHQ-9 Depression Total Score: 0 03/12/20 11:03 AM EDT documented as of this encounter Care Teams Popcorn Attendant Relationship Specialty Start Date End Date KanabBarbie [facility] [address] [place] [phone] PCP - General Family Medicine 07/14/24 documented as of this encounter
--- OUTSIDE RECORDS SUMMARY | 2025-10-08 17:08 | XMS_ITS | Encounter Summary ---
Author Organization [employer] Address [address] [facility] 7t [place] [address] Care Team Providers Care Reliability Technologist Name Role Phone Sophie Bettencourt [facility] Primary Care Provider [phone] [facility] Primary Care Provider [phone] Encounter Details Date Type Department Care Team ([facility] st Contact Info) Description 12/21/2023 Abstract [facility] [address] [place] [address] Sophie Bettencourt FNP [address] [place] [address] Social History Tobacco Use Types Packs/Day Years [...] Description 11/07/2025 10:30 AM EST Office Visit [facility] [address] [place] [address] Barbie Joseph FNP [address] [place] [address] documented as of this encounter Visit Diagnoses Not on filedocumented in this encounter Additional Health Concerns Assessment Noted Time PHQ-9 Depression Total Score: 5 12/20/19 24 10:25 AM EST documented as of this encounter Care Teams Reliability Technologist Relationship Specialty Start Date End Date Sophie Bettencourt FNP [address] [place] [address] PCP - General Family Medicine 12/04/22 07/13/24 Barbie Joseph FNP [address] [place] [address] PCP - General Family Medicine 07/14/24 documented as of this encounter
--- OUTSIDE RECORDS SUMMARY | 2025-10-08 17:08 | XMS_ITS | Encounter Summary ---
Author Organization [employer] Address [address] [place] [address] 7[address] [place] [address] Care Team Providers Care Customs Brokerage Agent Name Role Phone Sophie Bettencourt Primary Care Provider [phone] Barbie Joseph [facility] Primary Care Provider [phone] Encounter Details Date Type Department Care Team (Late st Contact Info) Description 06/16/2023 Abstract [facility] [address] [place] [phone] Sophie Bettencourt FNP [address] [place] [address] Social History Tobacco Use Types Packs/Day Years [...] Description 11/07/2025 10:30 AM EST Office Visit [facility] [address] [place] [phone] Barbie Joseph [facility] [address] [place] [address] documented as of this encounter Visit Diagnoses Not on filedocumented in this encounter Additional Health Concerns Assessment Noted Time PHQ-9 Depression Total Score: 4 12/04/19 10:49 AM EST documented as of this encounter Care Teams Customs Brokerage Agent Relationship Specialty Start Date End Date Sophie Bettencourt FNP [address] [place] [address] PCP - General Family Medicine 12/04/22 07/13/24 BlissBarbie FNP [address] [place] [address] PCP - General Family Medicine 07/14/24 documented as of this encounter
== END 2025-10-08 14:09 | disposition home or self-care (01) ==
PROVIDERS: Physician Assistant Medical; Emergency Provider Emergency Medicine; PCP Registered Nurse
DX: M25.512 Pain in left shoulder (principal); M54.2 Cervicalgia; M79.602 Pain in left arm; R07.9 Chest pain, unspecified
CPT/HCPCS: 36415; 71046; 73030; 80053; 84484; 85025; 93005; 96372; 99283; 99284; J1885

== ENCOUNTER → 2025-10-08 12:21 | Outpatient (BNV) | payer MEDICAID, SELFPAY | PROVIDERS: Emergency Provider Emergency Medicine; PCP Registered Nurse; Visit Provider Internal Medicine Cardiovascular Disease | DX: M54.2 Cervicalgia (principal) | CPT/HCPCS: 93010 ==

== ENCOUNTER → 2025-10-08 12:21 | Outpatient (BNV) | payer MEDICAID, SELFPAY | PROVIDERS: Emergency Provider Emergency Medicine; PCP Registered Nurse; Visit Provider Radiology Diagnostic Radiology | DX: R07.9 Chest pain, unspecified (principal); M19.012 Primary osteoarthritis, left shoulder | CPT/HCPCS: 71046; 73030 ==

== ENCOUNTER 2025-10-29 12:52 | Outpatient (AMB) | payer MEDICAID, SELFPAY ==
--- NOTE | 2025-10-29 12:59 | MHC.OFFVIS ---
Intake Visit Reasons: OV-B/L shoulder pain Intake Note: Sally is a 45 year old right hand dominant female who presents today for a follow up of her bilateral shoulder pain. At her last visit she was recommended to continue with physical therapy. She states that her pain is still ongoing. Patient noticed about a month ago that her pain started to radiate up to her neck. Patient notices that physical therapy gave her mild relief but her pain is still there and her range of motion is still limited. [employer]: [employer] Present (Iris ([phone])) Allergies No Known Allergies Allergy (Verified 10/29/25 13:00) HPI HPI OV-B/L shoulder pain: Details: This is a 45 year old right hand dominant female who presents today for a follow up of her bilateral shoulder pain. At her last visit she was recommended to continue with physical therapy. She states that her pain is still ongoing. Patient notices that physical therapy gave her mild relief but her pain is still there and her range of motion is still limited. [facility] Medical History YANELI III (cervical intraepithelial neoplasia grade III) with severe dysplasia Patient denies significant medical history Surgical History H/O LEEP H/O tubal ligation Family History Sister Ovarian cancer Social History Household Members Other:: [facility] Housing: Apartment Are you a primary primary care physician to a significant other at home: No Do you presently have visiting nurse or other home services: No Alcohol intake: never Patient Tobacco Use Status: Never used Tobacco Current occupational status: employed 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 No ecchymosis, erythema, or edema. Full shoulder ROM in all planes. Negative cross-body reach. Negative empty can. Negative drop arm. NVI. Office Procedures AMB Joint Injection/Aspiration Joint Injection/Aspiration Primary Site: Right Shoulder Secondary Site: Left Shoulder Prep: site was prepped using aseptic technique, ethochloride spray was applied and injection warnings given Injected: 40 mg of, Decadron, with 3 mL of, 1% plain Lidocaine, 0.25% Bupivacaine and in the subcromial space Approach Used: posterolateral Procedure: The patient tolerated the procedure well, but had some pain with the injection and there was some relief with the local anesthesia Coding 99805 - Bilateral Large Joint Procedure code (CPT) selection complete Assessment & Plan Assessment & Plan (1) Calcific tendinitis of right shoulder: Code(s): M75.31 - Calcific tendinitis of right shoulder Category: Medical (2) Painful arc syndrome of left shoulder: Code(s): M75.102 - Unspecified rotator cuff tear or rupture of left shoulder, not specified as traumatic Category: Medical Plan The patient was offered a cortisone injection in bilateral shoulders. The patient was explained the risks, benefits, and alternatives to receiving this injection. After receiving consent for the injection, the patient had the procedure done while in the office today. The patient tolerated the procedure well with no complications. The risks, benefits, and alternatives to a corticosteroid injection were discussed with the patient, including the potential benefits of decreased inflammation and pain, improved function, and diagnostic value. Risks were reviewed, including post-injection flare, skin or fat atrophy, transient facial flushing, temporary elevation in blood glucose, bruising, and rare but serious complications such as infection, tendon weakening or rupture, and cartilage damage with repeated injections. Procedure-related discomfort and possible vasovagal symptoms were also explained. Alternatives were reviewed, including NSAIDs, physical therapy, activity modification, bracing, ice/heat, weight management, hyaluronic acid injections when appropriate, PRP or other orthobiologics, oral steroids, surgery depending on pathology, and observation. The patient verbalized understanding and elected to proceed. After receiving consent for the injection, the patient had the procedure done while in the office today. The patient tolerated the procedure well with no complications. Follow-up will be PRN, or sooner if needed Coding Level of Care Code Est Pt Level 3 (96230) Diagnoses Calcific tendinitis of right shoulder M75.31 Painful arc syndrome of left shoulder M75.102 CPT Codes Coding - 22236 - Bilateral Large Joint: 12539 - Bilateral Large Joint ([id number])
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
--- OUTSIDE RECORDS SUMMARY | 2025-10-29 18:38 | XMS_ITS | Encounter Summary ---
Author Organization [employer] Address [address] [place] [address] 7t [place] [address] Care Team Providers Care Chief Orthoptist Name Role Phone Sophie Bettencourt [facility] Primary Care Provider [phone] [facility] Primary Care Provider [phone] Reason for Visit * Reason Onset Date Comments triage 04/13/2023 Encounter Details Date Type Department Care Team ([facility] st Contact Info) Description 04/13/2023 Telephone [facility] MEDICINE [address] [place] [address] Sophie Bettencourt FNP [address] [place] [address] triage Social History Tobacco Use Types Packs/Day [...] accepted this outcome Please contact pt at [phone] documented in this encounter Plan of Treatment Upcoming Encounters Date Type Department Care Team (Late st Contact Info) Description 11/07/2025 10:30 AM EST Office Visit [facility] [address] [place] [address] Barbie Joseph FNP [address] [place] [address] documented as of this encounter Visit Diagnoses Not on filedocumented in this encounter Additional Health Concerns Assessment Noted Time PHQ-9 Depression Total Score: 4 12/04/19 23 10:49 AM EST documented as of this encounter Care Teams Chief Orthoptist Relationship Specialty Start Date End Date Sophie Bettencourt FNP [address] [place] [phone] PCP - General Family Medicine 12/04/22 07/13/24 Barbie Joseph FNP [address] [place] [phone] PCP - General Family Medicine 07/14/24 documented as of this encounter
--- OUTSIDE RECORDS SUMMARY | 2025-10-29 18:38 | XMS_ITS | Encounter Summary ---
Author Organization [employer] Address [address] [facility] 7t [place] [address] Care Team Providers Care Plant Biology Professor Name Role Phone Sophie Bettencourt [facility] Primary Care Provider [phone] [facility] Primary Care Provider [phone] Encounter Details Date Type Department Care Team ([facility] st Contact Info) Description 12/21/2023 Abstract [facility] MEDICINE [address] [place] [address] Sophie Bettencourt FNP [address] [place] [address] Social History Tobacco Use Types Packs/Day Years [...] Description 11/07/2025 10:30 AM EST Office Visit [facility] [address] [place] [address] Barbie Joseph FNP [address] [place] [address] documented as of this encounter Visit Diagnoses Not on filedocumented in this encounter Additional Health Concerns Assessment Noted Time PHQ-9 Depression Total Score: 5 12/20/19 24 10:25 AM EST documented as of this encounter Care Teams Plant Biology Professor Relationship Specialty Start Date End Date Sophie Bettencourt FNP [address] [place] [address] PCP - General Family Medicine 12/04/22 07/13/24 Barbie Joseph FNP [address] [place] [address] PCP - General Family Medicine 07/14/24 documented as of this encounter
--- OUTSIDE RECORDS SUMMARY | 2025-10-29 18:38 | XMS_ITS | Encounter Summary ---
Author Organization [employer] Address [address] [place] [address] [address]t [place] [address] Care Team Providers Care Straight Line Edger Name Role Phone Sophie Bettencourt Primary Care Provider [phone] Barbie Joseph [facility] Primary Care Provider [phone] Encounter Details Date Type Department Care Team (Late st Contact Info) Description 06/16/2023 Abstract [facility] MEDICINE [address] [place] [phone] Sophie Bettencourt FNP [address] [place] [address] Social History Tobacco Use Types Packs/Day Years [...] Description 11/07/2025 10:30 AM EST Office Visit [facility] [address] [place] [phone] Barbie Joseph [facility] [address] [place] [address] documented as of this encounter Visit Diagnoses Not on filedocumented in this encounter Additional Health Concerns Assessment Noted Time PHQ-9 Depression Total Score: 4 12/04/19 10:49 AM EST documented as of this encounter Care Teams Straight Line Edger Relationship Specialty Start Date End Date Sophie Bettencourt FNP [address] [place] [address] PCP - General Family Medicine 12/04/22 07/13/24 [place] FNP [address] [place] [address] PCP - General Family Medicine 07/14/24 documented as of this encounter
--- OUTSIDE RECORDS SUMMARY | 2025-10-29 18:38 | XMS_ITS | Encounter Summary ---
Author Organization [employer] Address [address] [place] [address] 7 [place] [address] Care Team Providers Care Upkeep Worker Name Role Phone [facility] Primary Care Provider Reason for Visit * Reason Comments Pre-visit Planning SDOH screening compl eted on 02/28/2025 Encounter Details Date Type Department Care Team ([facility] Contact Info) Description 10/26/2025 Patient Outreach [facility] MEDICINE [address] [place] [address] [facility] [address] [place] [address] Pre-visit Planning (SDOH screening completed on 02/28/2025) Social History Tobacco Use Types Packs/Day Years [...] AM EDT documented as of this encounter Progress Notes * Fern [place] - 10/26/2025 11:35 AM EST JINA Shirley. Placed outbound call to patient to complete pre-visit planning. No answer at this time. Patient name and were not confirmed. CC left voicemail requesting return call. Direct contact information provided. documented in this encounter Plan of Treatment Upcoming Encounters Date Type Department Care Team (Late st Contact Info) Description 11/07/2025 10:30 AM EST Office Visit [facility] MEDICINE [address] [place] [address] Barbie Joseph FNP [address] [place] [address] documented as of this encounter Visit Diagnoses Not on filedocumented in this encounter Additional Health Concerns Assessment Noted Time PHQ-9 Depression Total Score: 0 03/12/20 25 11:03 AM EDT documented as of this encounter Care Teams Upkeep Worker Relationship Specialty Start Date End Date Barbie Joseph FNP [address] [place] [address] PCP - General Family Medicine 07/14/24 documented as of this encounter
== END 2025-10-29 13:42 | disposition home or self-care (01) ==
LOC: HO.HOS 12:53
PROVIDERS: PCP Registered Nurse; Visit Provider Physician Assistant
DX: M75.31 Calcific tendinitis of right shoulder (principal); M75.102 Unspecified rotator cuff tear or rupture of left shoulder, not specified as traumatic
CPT/HCPCS: 20610; 99213

== ENCOUNTER → 2025-10-29 12:52 | Outpatient (BNVA) | payer MEDICAID, SELFPAY | PROVIDERS: PCP Registered Nurse; Visit Provider Physician Assistant | DX: M75.31 Calcific tendinitis of right shoulder (principal); M75.102 Unspecified rotator cuff tear or rupture of left shoulder, not specified as traumatic | CPT/HCPCS: 20610; 99212; J0665; J1100; J2003 ==

== ENCOUNTER 2025-11-07 11:20 | Outpatient (REF) | payer MEDICAID, SELFPAY ==
--- NOTE | ~2025-11-07 | XR_ITS ---
EXAMINATION: XR SCOLIOSIS CLINICAL INFORMATION: 45 y.o F with chronic back pain, noted curvature on PE COMPARISON: None available. TECHNIQUE: A single view of the thoracolumbar spine is obtained. FINDINGS: There are no intrinsic vertebral anomalies. There is mild dextro rotoscoliosis of the dorsolumbar spine junction. The vertebral heights and alignment is maintained normal. The disc heights are normal. No lytic or sclerotic process seen. The paravertebral soft tissues are normal. SI joints are symmetrical and normal. The Harvinder angle is 12 degrees centered at L1-2 disc level. XR/XR scoliosis survey IMPRESSION: Mild rotoscoliosis dorsolumbar spine with a Harvinder angle of 12 degrees centered at the L1-2 disc level. Electronically signed by: Kirill Howell MD 11/07/2025 02:54 PM [place]
--- OUTSIDE RECORDS SUMMARY | 2025-11-07 10:30 | XMS_ITS | Encounter Summary ---
Author Organization [employer] Address [address] [place] [address] [address] [place] [address] Care Team Providers Care Farm Management Professor Name Role Phone Barbie JosephP Primary Care Provider [phone] Reason for Referral * Consultation (Routine) - Pending Review Specialty Diagnoses / Procedures Referred By Nyasia rojas Referred To Contact Physical Therapy Diagnoses Acute on chronic back pain Barbie Joseph FNP [address] [place] [address] Phone: tel: fax: Referral ID Status Reason Start Date Expiration Date Visits Requested Visits Authorized [id number] Pending Review Specialty Services Required 5 11/07/2026 1 1 Reason for Visit * Reason Comments Annual Exam Encounter Details Date Type Department Care Team (Late st Contact Info) Description 11/07/2025 10:30 AM EST Office Visit [facility] MEDICINE [address] [place] [address] Barbie Joseph FNP [address] [place] [address] Acute on chronic back pain (Primary Dx); Healthcare maintenance Social History Tobacco Use Types Packs/Day Years [...] 10:29 AM EST documented in this encounter Plan of Treatment Scheduled Orders Name Type Priority Associated Diagnoses Orde r Schedule XR Scoliosis survey Imaging Routine Acute on chronic back pain Expected: 11/07/2025, Expires: 11/07/2026 Lipid Panel, Standard Lab Routine Healthcare maintenance Expected: 11/07/2025 (Approximate), Expires: 11/07/2026 Hemoglobin A1c Lab Routine Healthcare maintenance Expected: 11/07/2025 (Approximate), Expires: 11/07/2026 Scheduled Referrals Name Type Priority Associated Diagnoses Orde r Schedule Referral to Physical Therapy Outpatient Referral Routine Acute on chronic back pain Expected: 11/07/2025 (Approximate), Expires: 11/07/2026 documented as of this encounter Visit Diagnoses Diagnosis Acute on chronic back pain- Primary Healthcare maintenance documented in this encounter Additional Health Concerns Assessment Noted Time PHQ-9 Depression Total Score: 0 03/12/20 25 11:03 AM EDT documented as of this encounter Care Teams Farm Management Professor Relationship Specialty Start Date End Date Barbie Joseph FNP [address] [place] [address] PCP - General Family Medicine 07/14/24 documented as of this encounter
--- OUTSIDE RECORDS SUMMARY | 2025-11-07 11:24 | XMS_ITS | Encounter Summary ---
Author Organization [employer] Address [address] [place] [address] [address] [place] [address] Care Team Providers Care Artist Manager Name Role Phone Sophie Bettencourt [facility] Primary Care Provider [phone] [facility] Primary Care Provider [phone] Reason for Visit * Reason Onset Date Comments triage 04/13/2023 Encounter Details Date Type Department Care Team ([facility] st Contact Info) Description 04/13/2023 Telephone [facility] MEDICINE [address] [place] [address] Sophie Bettencourt FNP [address] [place] [address] triage Social History Tobacco Use Types Packs/Day [...] accepted this outcome Please contact pt at [phone] documented in this encounter Plan of Treatment Not on file documented as of this encounter Visit Diagnoses Not on filedocumented in this encounter Additional Health Concerns Assessment Noted Time PHQ-9 Depression Total Score: 4 12/04/19 10:49 AM EST documented as of this encounter Care Teams Artist Manager Relationship Specialty Start Date End Date Sophie Bettencourt FNP [address] [place] [address] PCP - General Family Medicine 12/04/22 07/13/24 Barbie Joseph FNP [address] [place] [address] PCP - General Family Medicine 07/14/24 documented as of this encounter
--- OUTSIDE RECORDS SUMMARY | 2025-11-07 11:24 | XMS_ITS | Encounter Summary ---
Author Organization [email or web address] Address [address] [place] [address] Care Team Providers Care Shear Scrapman Name Role Phone Sophie Bettencourt [facility] Primary Care Provider [phone] [facility] Primary Care Provider [phone] Encounter Details Date Type Department Care Team ([facility] st Contact Info) Description 12/21/2023 Abstract [facility] MEDICINE [address] [place] [address] Sophie Bettencourt FNP [address] [place] [address] Social History Tobacco Use Types Packs/Day Years [...] documented as of this encounter Care Teams Shear Scrapman Relationship Specialty Start Date End Date Sophie Bettencourt FNP [address] [place] [address] PCP - General Family Medicine 12/04/22 07/13/24 Barbie Joseph FNP [address] [place] [address] PCP - General Family Medicine 07/14/24 documented as of this encounter
--- OUTSIDE RECORDS SUMMARY | 2025-11-07 11:24 | XMS_ITS | Encounter Summary ---
Author Organization [employer] Address [address] [place] [address] Care Team Providers Care Uniform Cap Operator Name Role Phone Barbie Joseph THREE KNIFE TRIMMER Primary Care Provider [phone] Encounter Details Date Type Department Care Team (Latest Contact Info) Description 11/07/2025 Travel Social History Tobacco Use Types Packs/Day Years [...] documented as of this encounter Care Teams Uniform Cap Operator Relationship Specialty Start Date End Date Barbie Joseph FNP [address] [place] [address] PCP - General Family Medicine 07/14/24 documented as of this encounter
--- OUTSIDE RECORDS SUMMARY | 2025-11-07 11:24 | XMS_ITS | Clinical Summary ---
Author Organization [employer] Address [address] [facility] 7t [place] [address] Care Team Providers Care Bag Filler Name Role Phone Barbie Joseph [facility] Primary Care Provider [phone] Allergies No known active allergies Medications lidocaine [...] CHEW, OR SPLIT. 90 tablet 5 Active lidocaine (Lidoderm) 5 % patchIndication s:Acute on chronic back pain Apply topically to affected areas. Leave on for up to 12 hours 30 patch 1 5 Active Active Problems Problem Noted Date [...] Encounters Date Type Department Care Team Description 11/07/2025 10:30 AM EST Office Visit [facility] [address] [place] [phone] Barbie Joseph FNP Acute on chronic back pain (Primary Dx); Healthcare maintenance 11/07/2025 Travel 11/06/2025 Telephone [facility] [address] [place] [phone] Barbie Joseph FNP chart prep 10/26/2025 Patient Outreach [facility] [address] [place] [address] Barbie Joseph FNP Pre-visit Planning (SDOH screening completed on 02/28/2025) 10/08/2025 Orders Only [facility] External Provider, [facility] 08/27/2025 Telephone [facility] [address] [place] [address] Barbie Joseph FNP dec recall from Last 3 Months Immunizations Immunization [...] 18 11/07/2025 10:29 AM EST Oxygen Saturation 99% 03/12/2025 10:57 AM EDT Inhaled Oxygen Concentration - - Weight 71.8 kg (158 lb 6.4 oz) 11/07/2025 10:29 AM EST Height 154.9 cm (5' 1 ) 11/07/2025 10:29 AM EST Body Mass Index 29.93 11/07/2025 10:29 AM EST Plan of Treatment Health Maintenance [...] 03/12/2026 03/12/2025, 03/12/2025 Disability Screening 03/12/2026 03/12/2025 Mammogram 04/23/2026 04/23/2025, 03/01/2024, 02/22/2023 DTaP/Tdap/Td Vaccines (2 - T d or Tdap) 10/19/2026 10/19/2016, 10/14/2007 Tobacco Screening 11/07/2026 11/07/2025 Cervical Cancer Screening 12/09/2027 HPV/Cotest 12/09/2027 10/11/2018 [...] Sensitivity Troponin I (10/08/2025 1:00 PM EST) [facility] TROPONIN I HIGH SENSITIVITY <2.7 <3.5 - 17.0 ng/L [facility] Comment:The Martinez high sens itivity Troponin-I results should beused in conjunction with other diagnostic information suchas ECG, clinical observations and information, and patientsymptoms to aid in the diagnosis of CO. 10/08/2025 1:00 PM EST 10/08/2025 1:03 PM EST us Generic External Data Provider LAB BLOOD ORDERAB LES Final Result [facility] [address] [place] [phone] * (ABNORMAL) CBC auto differential (10/08/2025 1:00 PM EST) [facility] White Blood Count 11.8(H) 4.8 - 10.8 X10*3/uL [facility] Red Blood Count 4.87 4.20 - 5.50 X10*6/uL [facility] Hemoglobin 13.0 12.0 - 16.0 g/dl [facility] Hematocrit 39.4 37.0 - 47.0 % [facility] Mean Corpuscular Volume 80.9 80.0 - 98.0 fL [facility] Mean Corpuscular Hemoglobin 26.7(L) 27.0 - 33.0 pg [facility] Mean Corpuscular HGB Conc 33.0 31.0 - 35.0 g/dl [facility] Red Cell Distribution Width 13.2 11.0 - 16.0 % [facility] Platelet Count 342 160 - 400 X10*3/uL [facility] Mean Platelet Volume 9.4 9.4 - 12.3 fL [facility] Neutrophils Percent Auto 69.3 45 - 73 % [facility] Imm Gran Pct Auto 0.4 0.0 - 0.4 % [facility] Lymphocytes Percent Auto 22.5 20 - 40 % [facility] Monocytes Percent Auto 5.9 2 - 11 % [facility] Eosinophils Percent Auto 1.4 0 - 4 % [facility] Basophils Percent Auto 0.5 0 - 2 % [facility] NRBC Pct Auto 0.0 0.0 - 0.2 /100WBC [facility] Neutrophils Absolute Auto 8.2 2.0 - 8.3 x10*3/uL [facility] Imm Gran Abs Auto 0.05(H) 0.00 - 0.03 X10*3/uL [facility] Lymphocytes Absolute Auto 2.7 1.2 - 4.9 X10*3/uL [facility] Monocytes Absolute Auto 0.7 0.1 - 1.2 X10*3/uL [facility] Eosinophils Absolute Auto 0.2 0.0 - 0.4 X10*3/uL [facility] Basophils Absolute Auto 0.1 0.0 - 0.2 X10*3/uL [facility] NRBC Abs Auto 0.000 0.0 - 0.012 X10*3/uL [facility] 10/08/2025 1:00 PM EST 10/08/2025 1:03 PM EST us Generic External Data Provider LAB BLOOD ORDERAB LES Final Result [facility] [address] [place] [phone] [phone] * (ABNORMAL) Comprehensive Metabolic Panel (10/08/2025 1:00 PM EST) Sodium 139 135 - 145 mmol/L [facility] Potassium 4.0 3.3 - 5.1 mmol/L [facility] Chloride 108 96 - 108 mmol/L [facility] Carbon Dioxide 24 22 - 29 mmol/L [facility] Anion Gap 11(L) 12 - 20 [facility] Urea Nitrogen (BUN) 13 9 - 16 mg/dL [facility] Creatinine, Serum 0.71 0.5 - 1.4 mg/dL [facility] Creatinine Clr Calc Pharmacy 89.3 [facility] Comment:Provided height and weight: 154.94 cm,71.2 kg.eGFR (calculated from the MDRD study equation) and eCrCl(calculated from the Cockcroft-Gault equation) are based ondifferent parameters and may not yield comparable results.If eCrCl result is absurd, please check patient'sheight/weight. Estimated Glomerular Filt Rate >60 [facility] Comment:Chronic Kidney Disea se: Estimated GFR < 60 mL/min/1.54j2Yubbex Kidney Disease: Estimated GFR < 15 mL/min/1.73m2 Glucose 125(H) 60 - 115 mg/dL [facility] Calcium 8.5 8.4 - 10.2 mg/dL [facility] Bilirubin, Total 0.3 0.0 - 1.0 mg/dL [facility] Aspartate Amino Transferase 21 5 - 31 U/L [facility] Alanine Aminotransferase 29 0 - 31 U/L [facility] Total Protein 7.0 6.5 - 8.0 g/dL [facility] Albumin Level 4.5 3.5 - 5.0 g/dL [facility] Alkaline Phosphatase 64 39 - 117 U/L [facility] 10/08/2025 1:00 PM EST 10/08/2025 1:03 PM EST us Generic External Data Provider LAB BLOOD ORDERAB LES Final Result [facility] [address] [place] [phone] * XR Shoulder 2+ Views Left (10/08/2025 12:37 PM EST) Anatomical Region Laterality Modality Upper Extremities, Shoulder Left Radi ographic Imaging 10/08/2025 12:3 7 PM EST Narrative 10/08/2025 12:50 PM EST [address] [address] XRay Report Signed Patient: Sally Butler MR#: [id number] : 1980 Acct:[id number] Age/Sex: 45 / F ADM Date: 10/08/25 Loc: HO.ED Attending Dr: Ordering Physician: Hanna James Date of Service: 10/08/25 Procedure(s): XR shoulder LT min 2V Accession Number(s): [id number] cc: Hanna James; [facility] Reason for Exam: pain EXAMINATION: [...] by: Pj Navarro MD 10/08/2025 12:47 PM [facility]ictated By: Pj Navarro MD Signed By: <Electronically signed by Pj Navarro MD in OV> 10/08/25 1247 DD/ 1237 TD/TT: 10/08/25 1238 Object Oriented Developer: Procedure Note Donotuseinterpreter, Image - 10/08/[address] [address] XRay Report Signed Patient: Sally ButlerMR#: [id number] : 1980Acct:[id number] Age/Sex: 45 / FADM Date: 10/08/25 Loc: .ED Attending Dr: Ordering Physician: Hanna James Date of Service: 10/08/25 Procedure(s): XR shoulder LT min 2V Accession Number(s): [id number] cc: Hanna James; [facility] PATTERN HAND Reason for Exam: pain EXAMINATION: XR SHOULDER, [...] 10/08/25 1247 DD/ 1237 TD/TT: 10/08/25 1238 Object Oriented Developer: [facility] External Provider IMG XR PROCEDURES Final Result * XR Chest 2 Views (10/08/2025 12:36 PM EST) Anatomical Region Laterality Modality Chest Radiographic Gabby ging 10/08/2025 12:3 6 PM EST Narrative 10/08/2025 12:49 PM EST [address] [address] XRay Report Signed Patient: Sally Butler MR#: [id number] : 1980 Acct:[id number] Age/Sex: 45 / F ADM Date: 10/08/25 Loc: HO.ED Attending Dr: Ordering Physician: Hanna James Date of Service: 10/08/25 Procedure(s): XR chest 2V Accession Number(s): [id number] cc: Hanna James; [facility] Reason for Exam: pain EXAMINATION: [...] 10/08/25 1247 DD/ 1236 TD/TT: 10/08/25 1238 Object Oriented Developer: Procedure Note Donotuseinterpreter, Image - 10/08/[address] [address] XRay Report Signed Patient: Sally ButlerMR#: [id number] : 1980Acct:[id number] Age/Sex: 45 / FADM Date: 10/08/25 Loc: .ED Attending Dr: Ordering Physician: Hanna James Date of Service: 10/08/25 Procedure(s): XR chest 2V Accession Number(s): [id number] cc: Hanna James; [facility] Reason for Exam: pain EXAMINATION: [...] 10/08/25 1247 DD/ 1236 TD/TT: 10/08/25 1238 Object Oriented Developer: [facility] External Provider IMG XR PROCEDURES Final Result * BI Mammogram Screening Tomosynthesis Bilateral (04/23/2025 1:20 PM EDT) Anatomical Region Laterality Modality Breast Bilateral Mammography 04/23/2025 1:20 PM EDT Narrative 04/30/2025 3:09 PM EDT [facility] [address] [place] [address] Mammography Report Signed Patient: Sally Butler MR#: [id number] : 1980 Acct:[id number] Age/Sex: 45 / F ADM Date: 04/23/25 Loc: HO.MAMMO Attending Dr: Shahriar Guevara MD Ordering Physician: Shahriar Guevara MD Results: 1Negativ e Date of Service: 04/23/25 Follow Up: 1 Year From Orig inal Mammogram Procedure(s): MM tomosynthesis screening BI Accession Number(s): [id number] cc: [facility]; Shahriar Guevara MD EXAMINATION: MM [...] 04/30/25 1506 DD/ 1320 TD/TT: 04/23/25 1345 Object Oriented Developer: Procedure Note Donotuseinterpreter, Image - 04/30/2025 [facility] [address] [place], [place] [address] Mammography Report Signed Patient: Sally ButlerMR#: [id number] : 1980Acct:[id number] Age/Sex: 45 / FADM Date: 04/23/25 Loc: HO.MAMMO Attending Dr: Shahriar Guevara MD Ordering Physician: Shahriar Guevara MDResults: 1Negativ e Date of Service: 04/23/25Follow Up: 1 Year From Orig inal Mammogram Procedure(s): MM tomosynthesis screening BI Accession Number(s): [id number] cc: [place] PATTERN HAND; Shahriar Guevara MD EXAMINATION: MM SCREENING DIGITAL [...] 04/30/25 1506 DD/ 1320 TD/TT: 04/23/25 1345 Object Oriented Developer: [facility] External Provider IMG BI PROCEDURES Final Result * Hm Colonoscopy (12/22/2024) Colonoscopy Normal Normal Comment:Repeat 10 years us Historical Provider HEALTH MAINTENANCE Final Result * Pap Smear (12/09/2022 11:39 AM EST) 12/09/2022 11:3 9 AM EST 12/09/2022 1:00 PM EST Narrative [facility] - 12/18/2022 6:29 PM EST ----- ------- Name: Sally Butler Age/Sex: 42/F : 1980 Unit#: [id number] Attend Dr: Shahriar Guevara MD Re12/09/22 Status: DEP REF Location: HO.LNP Disch: ----- ------- SPEC : [id number] RECD: 12/09/22-1299 STATUS: KIRIT GUADALUPE NUM: [id number] MARK: 12/09/22-1139 [facility] DR: Shahriar Guevara MD ENTERED: 12/09/22-1320 SP TYPE: Pap Smr OTHR DR: Sophie Bettencourt HARNESSMAKER ORDERED: Pap Smear Interpretation Satisfactory for evaluation. Negative for intraepithelial lesion or malignancy. HPV mRNA E6/E7: NOT DETECTED This assay detects E6/E7 viral messenger RNA (mRNA) from 14 high-risk HPV types (16, 18, 31, 33, 35, 39, 45, 51, 52, 56, 58, 59, 66, 68) HPV testing performed by [employer], [place], [place]. See reference laboratory portion of the EMR for entire report. Clinical Information LMP: 11/2022 Previous PAP test: 2019, WNL Material Received ThinPrep-Cervical Copies To: Sophie Bettencourt HARNESSMAKER [address] [place] [address] Shahriar Guevara MD [address] [place] [address] [place] [address] ----- ------- Signed (signature on file) Hanna A Lidya 12/18/22 1829 ----- ------- END OF REPORT [facility] External Provider LAB CYT [facility] ORDERABLES Final Result [facility] [address] [place] [phone] * HIV 1/2 ANTIGEN/ANTIBODY,FOURTH GENERATION W/RFL [...] purpose. For additional information please refer to http://[employer].Tuicool/faq/TCI933 (This link is being provided for informational/ [...] purpose. For additional information please refer to http://[employer].Analyze Re/faq/AAM450 (This link is being provided for informational/ educational purposes only.) The performance of this assay has not been clinically validated in patients less than 2 years old. 09/11/2020 1:30 PM EDT Rosa Hand NP LAB BLOOD ORDERABLES Final Resul t [facility] [address] * (ABNORMAL) HPV mRNA E6/E7 (10/11/2018 10:53 AM EST) HPV mRNA E6/E7 DETECTED (AA) NOT DETECTED [facility] Comment: This test was performed using the APTIMA(R) HPV Assay ([employer] This assay detects E6/E7 viral messenger RNA (mRNA) from 14 high-risk HPV types (16,18,31,33,35,39,45,51, 52,56,58,59,66,68). For additional information please refer to: http://education.[employer].Analyze Re/faq/DUE244x2 (This link is being provided for informational/ educational purposes only.) The analytical performance characteristics of this assay have been determined by [employer] [place], [place]. The modifications have not been cleared or approved by the FDA. This assay has been validated pursuant to the CLIA regulations and is used for clinical purposes. Test Performed by [employer] [employer] [facility], [address] [place] [address] Hadley An M.D., Ph.D., Director of Laboratories , CLIA [id number] Please note: Effective 07/27/2016, HPV testing will be performed using [employer]'s APTIMA test which targets mRNA. Detecting mRNA instead of DNA, as in older methods, offers significant improvements in specificity. 10/11/2018 10:5 3 AM EST us Rosa Hand NP HISTORICAL/NON ORDERABLE LABS Fi nal Result [facility] [address] from Last 3 Months or Most Recently Relevant to Health Maintenance Insurance [facility] C3 Care Teams Bag Filler Relationship Specialty Start Date End Date [place] [facility] [address] [place] [phone] PCP - General Family Medicine 07/14/24
--- OUTSIDE RECORDS SUMMARY | 2025-11-07 11:24 | XMS_ITS | Encounter Summary ---
Author Organization [employer] Address [address] [facility] 7t [place] [address] Care Team Providers Care Director Medical Economics Name Role Phone [place] [facility] Primary Care Provider [phone] Reason for Visit * Reason Onset Date Comments chart prep 11/06/2025 Encounter Details Date Type Department Care Team ([facility] st Contact Info) Description 11/06/2025 Telephone [facility] [address] [place] [address] [facility] [address] [place] [address] chart prep Social History Tobacco Use Types Packs/Day Years [...] encounter Miscellaneous Notes * Telephone Encounter - Kathy Paige [place] - 11/06/2025 10:19 AM EST Chart Prep Labs: done Images: done Referrals: complete Vaccines due: Covid, Flu, and Hep B Screenings: not applicable Overdue care gaps: SBIRT, PHQ-9, and MANNY-7 documented in this encounter Plan of Treatment Not on file documented as of this encounter Visit Diagnoses Not on filedocumented in this encounter Additional Health Concerns Assessment Noted Time PHQ-9 Depression Total Score: 0 03/12/20 25 11:03 AM EDT documented as of this encounter Care Teams Director Medical Economics Relationship Specialty Start Date End Date Barbie Joseph FNP [address] [place] [phone] PCP - General Family Medicine 07/14/24 documented as of this encounter
--- OUTSIDE RECORDS SUMMARY | 2025-11-07 11:24 | XMS_ITS | Encounter Summary ---
Author Organization [employer] Address [address] [place] [address] 7t [place] [address] Care Team Providers Care Shear Helper Name Role Phone Sophie Bettencourt Primary Care Provider [phone] [facility] Primary Care Provider [phone] Encounter Details Date Type Department Care Team ([facility] st Contact Info) Description 06/16/2023 Abstract [facility] [address] [place] [address] Sophie Bettencourt FNP [address] [place] [address] Social History Tobacco Use Types Packs/Day Years [...] as of this encounter Care Teams Shear Helper Relationship Specialty Start Date End Date Sophie Bettencourt FNP [address] [place] [address] PCP - General Family Medicine 12/04/22 07/13/24 [place] FNP [address] [place] [address] PCP - General Family Medicine 07/14/24 documented as of this encounter
== END 2025-11-07 11:21 | disposition home or self-care (01) ==
LOC: HO.XRAY 11:20
PROVIDERS: PCP Registered Nurse; Visit Provider Registered Nurse
DX: M54.9 Dorsalgia, unspecified (principal); G89.29 Other chronic pain
CPT/HCPCS: 72082

== ENCOUNTER → 2025-11-07 11:24 | Outpatient (BNV) | payer MEDICAID, SELFPAY | PROVIDERS: PCP Registered Nurse; Visit Provider Radiology Diagnostic Radiology | DX: M41.85 Other forms of scoliosis, thoracolumbar region (principal); M54.9 Dorsalgia, unspecified | CPT/HCPCS: 72082 ==

== ENCOUNTER 2025-11-12 10:13 | Outpatient (REF) | payer MEDICAID, SELFPAY ==
--- OUTSIDE RECORDS SUMMARY | 2025-11-07 10:30 | XMS_ITS | Encounter Summary ---
Author Organization [employer] Address [address] [place] [address] [place] [address] Care Team Providers Care Hydraulic Tester Name Role Phone Barbie Joseph Primary Care Provider Reason for Referral * Consultation (Routine) - Pending Review Specialty Diagnoses / Procedures Referred By Nyasia rojas Referred To Contact Genetics Diagnoses Family history of cancer Barbie Joseph FNP [address] [place] [address] Phone: tel: fax: Referral ID Status Reason Start Date Expiration Date Visits Requested Visits Authorized [id number] Pending Review Specialty Services Required 11/12/2026 1 1 * Consultation (Routine) - Closed Specialty Diagnoses / Procedures Referred By Nyasia rojas Referred To Contact Physical Therapy Diagnoses Acute on chronic back pain Barbie Joseph FNP [address] [place] [address] Phone: tel: fax: [facility] [address] [place] [address] Phone: tel: fax: Referral ID Status Reason Start Date Expiration Date V isits Requested Visits Authorized [id number] Closed Specialty Services Required 11/07/2025 11/07/2026 20 20 Reason for Visit * Reason Comments Annual Exam Encounter Details Date Type Department Care Team (Late st Contact Info) Description 11/07/2025 10:30 AM EST Office Visit [facility] MEDICINE [address] [place] [address] [place], Barbie, OXYGRAPH OPERATOR [address] [place] [address] Healthcare maintenance (Primary Dx); Acute on chronic back pain; Family history of cancer Social History Tobacco Use Types Packs/Day Years Used Date Smoking Tobacco: Never Smokeless Tobacco: Never Tobacco Cessation:Counseling Given: Not Answered Alcohol Use Standard Drinks/Week Comments Not Currently 0 (1 standard drink = 0.6 oz pur e alcohol) Depression Answer Date Recorded Patient Health Questionnaire-9 Score 2 11/07/2025 Patient Health Questionnaire-9 Score 2 11/07/2025 Last PHQ-9: Questionnaire Data Not on file 1 01/08/2025 Housing Stability Answer Date Recorded What is [...] the past 12 months, has t he [employer], gas, oil or water company threatened to shut off services in your home? No 02/28/2025 Depression Answer Date Recorded Patient Health Questionnaire-2 Score 0 11/07/2025 Internet Access Answer Date Recorded Internet Access [...] AM EDT documented as of this encounter Last Filed Vital Signs Vital Sign Reading Time Taken Comments Blood Pressure 110/72 11/07/2025 10:29 AM EST Pulse 100 11/07/2025 10:29 AM EST Temperature 36.7 C (98.1 F) 11/07/2025 10:29 AM EST Respiratory Rate 18 11/07/2025 10:29 AM EST Oxygen Saturation - - Inhaled Oxygen Concentration - - Weight 71.8 kg (158 lb 6.4 oz) 11/07/2025 10:29 AM EST Height 154.9 cm (5' 1 ) 11/07/2025 10:29 AM EST Body Mass Index 29.93 11/07/2025 10:29 AM EST documented in this encounter Functional Status * SBIRT - Alcohol Question Answer Date of Assessment Author How many times in the past year have you had 5 or more (for men) or 4 or more (for women) drinks in a day? 0 11/07/2025 11:33 AM EST Kathy Vines MA Score 0 11/07/2025 11:33 AM EST Kathy Lizama MA * SBIRT - Drugs Question Answer Date of Assessment Author How many times in the past year have you used an illegal drug or used a prescription medication for non-medical reasons? 0 11/07/2025 11:33 AM EST Kathy Paige MA Score 0 11/07/2025 11:33 AM EST Kathy Lizama MA * Over the past 2 weeks, how often have you been bothered by any of the following problems? Question Answer Date of Assessment Author Patient Health Questionnaire-2 Score 0 11/07/2025 11:32 AM EST Kathy Banda MA * Little interest or pleasure in doing things Answer Date of Assessment Author Not at all 11/07/2025 11:32 AM EST Kathy Chua MA * Feeling down, depressed, or hopeless Answer Date of Assessment Author Not at all 11/07/2025 11:32 AM EST Kathy Chua MA * Trouble falling or staying asleep, or sleeping too much Answer Date of Assessment Author Not at all 11/07/2025 11:32 AM Kathy Hamm MA * Feeling tired or having little energy Answer Date of Assessment Author Several days 11/07/2025 11:32 AM Kathy Hamm MA * Poor appetite or overeating Answer Date of Assessment Author Not at all 11/07/2025 11:32 AM Kathy Hamm MA * Feeling bad about yourself - or that you are a failure or have let yourself or your family down Answer Date of Assessment Author Not at all 11/07/2025 11:32 AM Kathy Hamm MA * Trouble concentrating on things, such as reading the newspaper or watching television Answer Date of Assessment Author Several days 11/07/2025 11:32 AM Kathy Hamm MA * Moving or speaking so slowly that other people could have noticed? Or the opposite - being so fidgety or restless that you have been moving around a lot more than usual. Answer Date of Assessment Author Not at all 11/07/2025 11:32 AM Kathy Hamm MA * Thoughts that you would be better off or hurting yourself in some way Answer Date of Assessment Author Not at all 11/07/2025 11:32 AM Kathy Hamm MA * Patient Health Questionnaire-9 Score Answer Date of Assessment Author 2 11/07/2025 11:32 AM Kathy Hamm MA * Over the last 2 weeks, how often have you been bothered by any of the following problems? Question Answer Date of Assessment Author Feeling nervous, anxious, or on edge 1 11/07/2025 11:33 AM Kathy Hartley MA Not being able to stop or control worrying 0 11/07/2025 11:33 AM Kathy Hartley MA Worrying too much about different things 1 11/07/2025 11:33 AM Kathy Hartley MA Trouble relaxing 1 11/07/2025 11:33 AM EST Kathy Paige MA Being so restless that it is hard to sit still 0 11/07/2025 11:33 AM EST Kathy Paige MA Becoming easily annoyed or irritable 0 11/07/2025 11:33 AM EST Kathy Paige MA Feeling afraid as if something awful might happen 0 11/07/2025 11:33 AM EST Kathy Smith MA MANNY-7 Total Score 3 11/07/2025 11:33 AM EST Kathy Paige MA * How difficult have these problems made it for you to do your work, take care of things at home, or get along with other people? Answer Date of Assessment Author Not difficult at all 11/07/2025 11:32 AM EST Kathy Gregorio MA documented as of this encounter Progress Notes * [facility], [facility] - 11/07/2025 10:30 AM EST SUBJECTIVE: Sally Butler is a 45 y.o. year old adult who presents for routine physical exam. Denies recent illness, injury, or hospitalization. Acute Concerns: Lower Back Pain - Intermittent lower back pain for a few months, worse on the left side - No radiation down the legs - Denies injury, fall, or car accident - Pain relieved by Tylenol - Pain not present on the day of encounter, but comes and goes - Feels pressure and stinging sensation in the sacroiliac joint area with certain movements No LE weakness, bowel/bladder dysfunction, fever, or saddle anesthesia. 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 HENT: Negative for dental problem, ear pain, hearing loss and sore throat. Eyes: Negative for pain and visual disturbance. Respiratory: Negative for cough and shortness of breath. Cardiovascular: Negative for chest pain, palpitations and leg swelling. Gastrointestinal: Negative. Negative for abdominal pain, blood in stool and nausea. Endocrine: Negative. Genitourinary: Negative. Negative for dysuria. Musculoskeletal: Positive for back pain. Skin: Negative. Allergic/Immunologic: Negative. Negative for immunocompromised state. Neurological: Negative for dizziness, syncope, weakness, light-headedness and headaches. Hematological: Negative. Psychiatric/Behavioral: Negative. OBJECTIVE: Vitals: 11/07/25 1029 BP: 110/72 Pulse: 100 Resp: 18 Temp: 98.1 ??F (36.7 ??C) Physical Exam Constitutional: General: Sally is not in acute distress. Appearance: Normal appearance. HENT: Head: Normocephalic. Right Ear: Tympanic membrane, ear canal and external ear normal. Left Ear: Tympanic membrane, ear canal and external ear normal. Mouth/Throat: Mouth: Mucous membranes are moist. Eyes: Conjunctiva/sclera: Conjunctivae normal. Pupils: Pupils are equal, round, and reactive to light. Cardiovascular: Rate and Rhythm: Normal rate and regular rhythm. Heart sounds: Normal heart sounds. Pulmonary: Effort: Pulmonary effort is normal. Breath sounds: Normal breath sounds. Abdominal: Palpations: Abdomen is soft. Musculoskeletal: General: Normal range of motion. Cervical back: Normal. Thoracic back: Scoliosis present. Lumbar back: Normal range of motion. Comments: Mild scoliosis noted on PE. Spinal ROM otherwise intact with minimal discomfort. BLE strength/sensation intact. Skin: General: Skin is warm and dry. Neurological: General: No focal deficit present. Mental Status: Sally is alert and oriented to person, place, and time. Psychiatric: Mood and Affect: Mood normal. Behavior: Behavior normal. ASSESSMENT/PLAN Acute on chronic back pain: - Mild scoliosis identified, likely contributing to musculoskeletal pain. No evidence of radiculopathy. Pain localized over the sacroiliac joint, - Ordered X-rays to assess degree of curvature. Referred to physical therapy for strengthening and stretching. Recommended use of Tylenol and alternating with ibuprofen for pain management. Prescribed lidocaine patches for localized pain relief. Family History of Cancer - Significant family history; patient unaware if genetic screening completed. Accepts referral to genetics Father: Stomach cancer Sister: Ovarian cancer Pat Uncle: Lung cancer Healthcare Maintenance - Cardiopulmonary exam WNL - Encouraged regular aerobic exercise with initial goal of 30 minute walk 3x/week gradually increasing to 150 min/week of moderate intensity exercise - Encouraged balanced diet with a variety of fruits, vegetables, and lean meats. Recommended to decrease soda and sugary beverage consumption. Routine Health Maintenance Optometry: Up to date with routine eye exam Dental: Established with dental provider. Up to date on routine care Adult IZ: Declines covid/flu vaccine Immunization History Administered Date(s) Administered Pfizer Covid-19 Vaccine 12+ 09/15/2021, 10/06/2021 TD (adult), 2 Lf tetanus toxoid, preservative free, adsorbed 10/14/2007 Tdap 10/19/2016 Screenings Breast cancer screenin04/2025 Bi-rads 1 Cervical cancer screening: Follows with Dr. Guevara [facility] 11/2022 NIL HPV neg Colorectal cancer screening: colonosocpy with diverticulosis 12/2024--[facility]-repeat 10 years. Bone mineral density: Routine age 64. Lung CA: N/A Mental health screen: negative IPV screening: Pt feels safe and healthy in current relationship(s) Diagnosis Plan 1. Healthcare maintenance Lipid Panel, Standard Hemoglobin A1c Lipid Panel, Standard Hemoglobin A1c 2. Acute on chronic back pain XR Scoliosis survey XR Scoliosis survey lidocaine (Lidoderm) 5 % patch Referral to Physical Therapy Referral to Physical Therapy 3. Family history of cancer Referral to Genetics Referral to Genetics Follow Up: 1 year routine PE, sooner PRN Medications Ordered Prior to Encounter[4] Pashto Translation: Provided by [facility] staff member PAUL Blue [1] Patient Active Problem List Diagnosis Primary insomnia Vitamin D deficiency COVID [2] Past Surgical History: Procedure Laterality Date TUBAL LIGATION [3] Family History Problem Relation Name Age of Onset Diabetes Mother Hyperlipidemia Mother Colon cancer Father Cancer Sister [4] Current Outpatient Medications on File Prior to Visit Medication Sig Dispense Refill Bisacodyl EC 5 MG EC tablet TAKE 1 TABLET (5 MG) BY MOUTH IF NEEDED EACH DAY FOR CONSTIPATION. DO NOT CRUSH, CHEW, OR SPLIT. 90 tablet 0 fluticasone (Flonase) 50 MCG/ACT nasal spray Administer 1 spray into each nostril in the morning. 16 g 0 lidocaine (Lidoderm) 5 % patch Apply 1 patch topically in the morning. Remove & discard patch within 12 hours or as directed by MD. 30 patch 1 loratadine-pseudoephedrine ER (Loratadine-D 12HR) 5-120 MG 12 hr tablet Take 1 tablet by mouth if needed in the morning and at bedtime for allergies (nasal conegstion, cough) for up to 7 days. Do notcrush, chew, or split. 14 tablet 0 No current facility-administered medications on file prior to visit. documented in this encounter Plan of Treatment Scheduled Orders Name Type Priority Associated Diagnoses Orde r Schedule Lipid Panel, Standard Lab Routine Healthcare maintenance Expected: 11/07/2025 (Approximate), Expires: 11/07/2026 Hemoglobin A1c Lab Routine Healthcare maintenance Expected: 11/07/2025 (Approximate), Expires: 11/07/2026 Scheduled Referrals Name Type Priority Associated Diagnoses Orde r Schedule Referral to Physical Therapy Outpatient Referral Routine Acute on chronic back pain Expected: 11/07/2025 (Approximate), Expires: 11/07/2026 Referral to Genetics Outpatient Referral Routine Family history of cancer Expected: 11/12/2025 (Approximate), Expires: 11/12/2026 documented as of this encounter Procedures Procedure Name Priority Date/Time Associated Diagnosis Comments XR SCOLIOSIS SURVEY Routine 11/07/2025 1 1:38 AM EST Acute on chronic back pain documented in this encounter Results * XR Scoliosis survey (11/07/2025 11:38 AM EST) Anatomical Region Laterality Modality Spine N/A Radiographic Gabby ging 11/07/2025 11:3 8 AM EST Narrative 11/07/2025 2:57 PM EST [place] [address] XRay Report Signed Patient: Sally Butler MR#: [id number] : 1980 Acct:[id number] Age/Sex: 45 / F ADM Date: 11/07/25 Loc: [facility] Attending Dr: Barbie MANTILLA Ordering Physician: Barbie Joseph Date of Service: 11/07/25 Procedure(s): XR scoliosis survey Accession Number(s): [id number] cc: Barbie Joseph Reason for Exam: 45 y.o F with chronic back pain, noted curvature on PE EXAMINATION: XR SCOLIOSIS CLINICAL INFORMATION: 45 y.o F with chronic back pain, noted curvature on PE COMPARISON: None available. TECHNIQUE: A single view of the thoracolumbar spine is obtained. FINDINGS: There are no intrinsic vertebral anomalies. There is mild dextro rotoscoliosis of the dorsolumbar spine junction. The vertebral heights and alignment is maintained normal. The disc heights are normal. No lytic or sclerotic process seen. The paravertebral soft tissues are normal. SI joints are symmetrical and normal. The Harvinder angle is 12 degrees centered at L1-2 disc level. XR/XR scoliosis survey IMPRESSION: Mild rotoscoliosis dorsolumbar spine with a Harvinder angle of 12 degrees centered at the L1-2 disc level. Electronically signed by: Kirill Howell MD 11/07/2025 02:54 PM [facility] Dictated By: Kirill Howell MD Signed By: <Electronically signed by Kirill Howell MD in OV> 11/07/25 1454 DD/ 1138 TD/TT: 11/07/25 1142 Credit Associate: JACQUES Procedure Note Donotuseinterpreter, Image - 11/07/2025 [place] [address] XRay Report Signed Patient: Sally ButlerMR#: [id number] : 1980Acct:[id number] Age/Sex: 45 / FADM Date: 11/07/25 Loc: [facility] Attending Dr: Barbie Joseph OXYGRAPH OPERATOR Ordering Physician: Barbie Joseph Date of Service: 11/07/25 Procedure(s): XR scoliosis survey Accession Number(s): [id number] cc: Barbie Joseph Reason for Exam: 45 y.o F with chronic back pain, noted curvature on PE EXAMINATION: XR SCOLIOSIS CLINICAL INFORMATION: 45 y.o F with chronic back pain, noted curvature on PE COMPARISON: None available. TECHNIQUE: A single view of the thoracolumbar spine is obtained. FINDINGS: There are no intrinsic vertebral anomalies. There is mild dextro rotoscoliosis of the dorsolumbar spine junction. The vertebral heights and alignment is maintained normal. The disc heights are normal. No lytic or sclerotic process seen. The paravertebral soft tissues are normal. SI joints are symmetrical and normal. The Harvinder angle is 12 degrees centered at L1-2 disc level. XR/XR scoliosis survey IMPRESSION: Mild rotoscoliosis dorsolumbar spine with a Harvinder angle of 12 degrees centered at the L1-2 disc level. Electronically signed by: Kirill Howell MD 11/07/2025 02:54 PM EST RP Dictated By: Kirill Howell MD Signed By: <Electronically signed by Kirill Howell MD in OV> 11/07/25 1454 DD/ 1138 TD/TT: 11/07/25 1142 Credit Associate: JACQUES [facility] IMG XR PROCEDURES Edited Resu lt - Final documented in this encounter Visit Diagnoses Diagnosis Healthcare maintenance- Primary Acute on chronic back pain Family history of cancer Family history of unspecified malignant neoplasm documented in this encounter Additional Health Concerns Assessment Noted Time PHQ-9 Depression Total Score: 2 11/07/20 25 11:32 AM EST documented as of this encounter Care Teams Hydraulic Tester Relationship Specialty Start Date End Date Barbie Joseph FNP [address] [place] [id number] PCP - General Family Medicine 07/14/24 documented as of this encounter
--- OUTSIDE RECORDS SUMMARY | 2025-11-12 11:29 | XMS_ITS | Encounter Summary ---
Author Organization [employer] Address [address] [facility] 7t [place] [address] Care Team Providers Care Clinical Nurse Leader Name Role Phone Barbie Joseph MEDICAL AFFAIRS SPECIALIST Primary Care Provider [phone] Encounter Details Date Type Department Care Team [...] documented as of this encounter Care Teams Clinical Nurse Leader Relationship Specialty Start Date End Date Barbie Joseph FNP [address] [place] [phone] PCP - General Family Medicine 07/14/24 documented as of this encounter
--- OUTSIDE RECORDS SUMMARY | 2025-11-12 11:29 | XMS_ITS | Encounter Summary ---
Author Organization [employer] Address [address] [place] [address] 7t [place] [address] Care Team Providers Care Astrophysics Teacher Name Role Phone Sophie Bettencourt [facility] Primary Care Provider [phone] [facility] Primary Care Provider [phone] Reason for Visit * Reason Onset Date Comments triage 04/13/2023 Encounter Details Date Type Department Care Team ([facility] st Contact Info) Description 04/13/2023 Telephone [facility] [address] [place] [address] Sophie Bettencourt FNP [address] [place] [address] triage Social History Tobacco Use Types Packs/Day [...] accepted this outcome Please contact pt at [phone] documented in this encounter Plan of Treatment Not on file documented as of this encounter Visit Diagnoses Not on filedocumented in this encounter Additional Health Concerns Assessment Noted Time PHQ-9 Depression Total Score: 4 12/04/19 10:49 AM EST documented as of this encounter Care Teams Astrophysics Teacher Relationship Specialty Start Date End Date Sophie Bettencourt FNP [address] [place] [address] PCP - General Family Medicine 12/04/22 07/13/24 Barbie Joseph FNP [address] [place] [address] PCP - General Family Medicine 07/14/24 documented as of this encounter
--- OUTSIDE RECORDS SUMMARY | 2025-11-12 11:29 | XMS_ITS | Clinical Summary ---
Author Organization [employer] Address [address] [facility] 7t [place] [address] Care Team Providers Care Law Firm Consultant Name Role Phone Barbie Joseph [facility] Primary Care Provider [phone] Allergies No known active allergies Medications lidocaine [...] Description 11/07/2025 10:30 AM EST Office Visit [facility] [address] [place] [phone] Barbie Joseph FNP Healthcare maintenance (Primary Dx); Acute on chronic back pain; Family history of cancer 11/07/2025 Travel 11/06/2025 Telephone [facility] [address] [place] [phone] Barbie Joseph FNP chart prep 10/26/2025 Patient Outreach [facility] [address] [place] [phone] Barbie Joseph FNP Pre-visit Planning (SDOH screening completed on 02/28/2025) 10/08/2025 Orders Only [facility] External Provider, [facility] 08/27/2025 Telephone [facility] [address] [place] [phone] Barbie Joseph FNP dec recall from Last [...] 1979 FIT 1979 FOBT 1979 Sigmoidoscopy 1979 Family Planning (PISQ) 1994 Hepatitis C Screening 1997 Hepatitis B Vaccines (1 of 3 - 19+ 3-dose series) 1998 COVID-19 Vaccine (2024-2 6 season) 2025 10/06/2021, 09/15/2021 Influenza Vaccine (#1) 2025 SDOH Screening 02/28/2026 02/28/2025 Disability Screening 03/12/2026 03/12/2025 Mammogram 04/23/2026 04/23/2025, 03/01/2024, 02/22/2023 DTaP/Tdap/Td Vaccines (2 - T d or Tdap) 10/19/2026 10/19/2016, 10/14/2007 Alcohol/Substance Use Screening 11/07/2026 11/07/2025 Depression Screening 11/07/2026 11/07/2025, 11/07/2025 Tobacco Screening 11/12/2026 11/12/2025 Cervical Cancer Screening 12/09/2027 HPV/Cotest 12/09/2027 10/11/2018 [...] AM EST Acute on chronic back pain HIGH SENSITIVITY TROPONIN I Routine 10/08/2025 1:00 [...] Relevant to Health Maintenance Results * XR Scoliosis survey (11/07/2025 11:38 AM EST) Anatomical Region Laterality Modality Spine N/A Radiographic Gabby ging 11/07/2025 11:3 8 AM EST Narrative 11/07/2025 2:57 PM EST [address] [address] XRay Report Signed Patient: Sally Butler MR#: [id number] : 1980 Acct:[id number] Age/Sex: 45 / F ADM Date: 11/07/25 Loc: ERENDIRA Attending Dr: Barbie MANTILLA Ordering Physician: Barbie Joseph Date of Service: 11/07/25 Procedure(s): XR scoliosis survey Accession Number(s): [id number] cc: Barbie Joseph [facility] Reason for Exam: 45 y.o F with [...] 11/07/25 1454 DD/ 1138 TD/TT: 11/07/25 1142 Osteopathic Medicine Teacher: JACQUES Procedure Note Donotuseinterpreter, Image - 11/07/[address] [address] XRay Report Signed Patient: Sally ButlerMR#: [id number] : 1980Acct:[id number] Age/Sex: 45 / FADM Date: 11/07/25 Loc: HOSeraXRAY Attending Dr: Barbie MANTILLA Ordering Physician: Barbie Joseph Date of Service: 11/07/25 Procedure(s): XR scoliosis survey Accession Number(s): [id number] cc: Barbie Joseph [facility] Reason for Exam: 45 y.o F with [...] Kirill Howell MD 11/07/2025 02:54 PM EST Dictated By: Kirill Howell MD Signed By: <Electronically signed by Kirill Howell MD in OV> 11/07/25 1454 DD/ 1138 TD/TT: 11/07/25 1142 Osteopathic Medicine Teacher: JACQUES [facility] IMG XR PROCEDURES Edited Resu lt - Final * High Sensitivity Troponin I (10/08/2025 1:00 PM EST) Pathologist [facility] TROPONIN I HIGH SENSITIVITY <2.7 <3.5 - 17.0 ng/L [facility] Comment:The [place] high sens itivity Troponin-I results should beused in conjunction with other diagnostic information suchas ECG, clinical observations and information, and patientsymptoms to aid in the diagnosis of [place]. 10/08/2025 1:00 PM EST 10/08/2025 1:03 PM EST us Generic External Data Provider LAB BLOOD ORDERAB LES Final Result [facility] [address] [place] [address] [phone] * (ABNORMAL) CBC auto differential (10/08/2025 1:00 PM EST) [facility] White Blood Count 11.8(H) 4.8 - 10.8 X10*3/uL [facility] Red Blood Count 4.87 4.20 - 5.50 X10*6/uL [facility] Hemoglobin 13.0 12.0 - 16.0 g/dl [facility] Hematocrit 39.4 37.0 - 47.0 % [facility] Mean Corpuscular Volume 80.9 80.0 - 98.0 fL [facility] Mean Corpuscular Hemoglobin 26.7(L) 27.0 - 33.0 pg [facility] Mean Corpuscular HGB Conc 33.0 31.0 - 35.0 g/dl [facility] Red Cell Distribution Width 13.2 11.0 - 16.0 % [facility] Platelet Count 342 160 - 400 X10*3/uL [facility] Mean Platelet Volume 9.4 9.4 - 12.3 fL [facility] Neutrophils Percent Auto 69.3 45 - 73 % [facility] Imm Gran Pct Auto 0.4 0.0 - 0.4 % [facility] Lymphocytes Percent Auto 22.5 20 - 40 % [facility] Monocytes Percent Auto 5.9 2 - 11 % [facility] Eosinophils Percent Auto 1.4 0 - 4 % [facility] Basophils Percent Auto 0.5 0 - 2 % [facility] NRBC Pct Auto 0.0 0.0 - 0.2 /100WBC [facility] Neutrophils Absolute Auto 8.2 2.0 - 8.3 x10*3/uL [facility] Imm Gran Abs Auto 0.05(H) 0.00 - 0.03 X10*3/uL [facility] Lymphocytes Absolute Auto 2.7 1.2 - 4.9 X10*3/uL [facility] Monocytes Absolute Auto 0.7 0.1 - 1.2 X10*3/uL [facility] Eosinophils Absolute Auto 0.2 0.0 - 0.4 X10*3/uL [facility] Basophils Absolute Auto 0.1 0.0 - 0.2 X10*3/uL [facility] NRBC Abs Auto 0.000 0.0 - 0.012 X10*3/uL [facility] 10/08/2025 1:00 PM EST 10/08/2025 1:03 PM EST us Generic External Data Provider LAB BLOOD ORDERAB LES Final Result [facility] [address] [place] [phone] * (ABNORMAL) Comprehensive Metabolic Panel (10/08/2025 1:00 PM EST) Sodium 139 135 - 145 mmol/L [facility] Potassium 4.0 3.3 - 5.1 mmol/L [facility] Chloride 108 96 - 108 mmol/L [facility] Carbon Dioxide 24 22 - 29 mmol/L [facility] Anion Gap 11(L) 12 - 20 [facility] Urea Nitrogen (BUN) 13 9 - 16 mg/dL [facility] Creatinine, Serum 0.71 0.5 - 1.4 mg/dL [facility] Creatinine Clr Calc Pharmacy 89.3 [facility] Comment:Provided height and weight: 154.94 cm,71.2 kg.eGFR (calculated from the MDRD study equation) and eCrCl(calculated from the Cockcroft-Gault equation) are based ondifferent parameters and may not yield comparable results.If eCrCl result is absurd, please check patient'sheight/weight. Estimated Glomerular Filt Rate >60 [facility] Comment:Chronic Kidney Disea se: Estimated GFR < 60 mL/min/1.98u7Tdzoch Kidney Disease: Estimated GFR < 15 mL/min/1.73m2 Glucose 125(H) 60 - 115 mg/dL [facility] Calcium 8.5 8.4 - 10.2 mg/dL [facility] Bilirubin, Total 0.3 0.0 - 1.0 mg/dL [facility] Aspartate Amino Transferase 21 5 - 31 U/L [facility] Alanine Aminotransferase 29 0 - 31 U/L [facility] Total Protein 7.0 6.5 - 8.0 g/dL [facility] Albumin Level 4.5 3.5 - 5.0 g/dL [facility] Alkaline Phosphatase 64 39 - 117 U/L [facility] 10/08/2025 1:00 PM EST 10/08/2025 1:03 PM EST us Generic External Data Provider LAB BLOOD ORDERAB LES Final Result [facility] [address] [place] [phone] * XR Shoulder 2+ Views Left (10/08/2025 12:37 PM EST) Anatomical Region Laterality Modality Upper Extremities, Shoulder Left Radi ographic Imaging 10/08/2025 12:3 7 PM EST Narrative 10/08/2025 12:50 PM EST [address] [address] XRay Report Signed Patient: Sally Butler MR#: [id number] : 1980 Acct:[id number] Age/Sex: 45 / F ADM Date: 10/08/25 Loc: HO.ED Attending Dr: Ordering Physician: Hanna James Date of Service: 10/08/25 Procedure(s): XR shoulder LT min 2V Accession Number(s): [id number] cc: Hanna James; [facility] Reason for Exam: pain EXAMINATION: XR SHOULDER, [...] by: Pj Navarro MD 10/08/2025 12:47 PM [facility] Dictated By: Pj Navarro MD Signed By: <Electronically signed by Pj Navarro MD in OV> 10/08/25 1247 DD/ 1237 TD/TT: 10/08/25 1238 Osteopathic Medicine Teacher: Procedure Note Donotuseinterpreter, Image - 10/08/2025 [place] [address] XRay Report Signed Patient: Sally ButlerMR#: [id number] : 1980Acct:[id number] Age/Sex: 45 / FADM Date: 10/08/25 Loc: HO.ED Attending Dr: Ordering Physician: Hanna James Date of Service: 10/08/25 Procedure(s): XR shoulder LT min 2V Accession Number(s): [id number] cc: Hanna James; [facility] MEDICAL AUTHORIZATION SPECIALIST Reason for Exam: pain EXAMINATION: XR SHOULDER, [...] 10/08/25 1247 DD/ 1237 TD/TT: 10/08/25 1238 Osteopathic Medicine Teacher: [facility] External Provider IMG XR PROCEDURES Final Result * XR Chest 2 Views (10/08/2025 12:36 PM EST) Anatomical Region Laterality Modality Chest Radiographic Gabby ging 10/08/2025 12:3 6 PM EST Narrative 10/08/2025 12:49 PM EST [address] [address] XRay Report Signed Patient: Sally Butler MR#: [id number] : 1980 Acct:[id number] Age/Sex: 45 / F ADM Date: 10/08/25 Loc: .ED Attending Dr: Ordering Physician: Hanna James Date of Service: 10/08/25 Procedure(s): XR chest 2V Accession Number(s): [id number] cc: Hanna James; [facility] Reason for Exam: pain EXAMINATION: XR CHEST [...] 10/08/25 1247 DD/ 1236 TD/TT: 10/08/25 1238 Osteopathic Medicine Teacher: Procedure Note Donotuseinterpreter, Image - 10/08/[address] [address] XRay Report Signed Patient: Sally ButlerMR#: [id number] : 1980Acct:[id number] Age/Sex: 45 / FADM Date: 10/08/25 Loc: .ED Attending Dr: Ordering Physician: Hanna James Date of Service: 10/08/25 Procedure(s): XR chest 2V Accession Number(s): [id number] cc: Hanna James; [facility] Reason for Exam: pain EXAMINATION: XR CHEST [...] 10/08/25 1247 DD/ 1236 TD/TT: 10/08/25 1238 Osteopathic Medicine Teacher: [facility] External Provider IMG XR PROCEDURES Final Result * BI Mammogram Screening Tomosynthesis Bilateral (04/23/2025 1:20 PM EDT) Anatomical Region Laterality Modality Breast Bilateral Mammography 04/23/2025 1:20 PM EDT Narrative 04/30/2025 3:09 PM EDT [address] [place] [address] Mammography Report Signed Patient: Sally Butler MR#: [id number] : 1980 Acct:[id number] Age/Sex: 45 / F ADM Date: 04/23/25 Loc: HO.MAMMO Attending Dr: Shahriar Guevara MD Ordering Physician: Shahriar Guevara MD Results: 1Negativ e Date of Service: 04/23/25 Follow Up: 1 Year From Orig ina Mammogram Procedure(s): MM tomosynthesis screening BI Accession Number(s): [id number] cc: CalamusBarbie [facility]; Shahriar Guevara MD EXAMINATION: MM SCREENING DIGITAL [...] 04/30/25 1506 DD/ 1320 TD/TT: 04/23/25 1345 Osteopathic Medicine Teacher: Procedure Note Donotuseinterpreter, Image - 04/30/[address] [place] [address] Mammography Report Signed Patient: Sally ButlerMR#: [id number] : 1980Acct:[id number] Age/Sex: 45 / FADM Date: 04/23/25 Loc: HO.MAMMO Attending Dr: Shahriar Guevara MD Ordering Physician: Shahriar Guevara MDResults: 1Negativ e Date of Service: 04/23/25Follow Up: 1 Year From Orig ina Mammogram Procedure(s): MM tomosynthesis screening BI Accession Number(s): [id number] [facility] Shahriar Guevara MD EXAMINATION: MM SCREENING DIGITAL [...] 04/30/25 1506 DD/ 1320 TD/TT: 04/23/25 1345 Osteopathic Medicine Teacher: [facility] External Provider IMG BI PROCEDURES Final Result * Hm Colonoscopy (12/22/2024) Colonoscopy Normal Normal Comment:Repeat 10 years Historical Provider HEALTH MAINTENANCE Final Result * Pap Smear (12/09/2022 11:39 AM EST) 12/09/2022 11:3 9 AM EST 12/09/2022 1:00 PM EST Franco [facility] - 12/18/2022 6:29 PM EST ----- ------- Name: Sally Butler Age/Sex: 42/F : 1980 Unit#: [id number] Attend Dr: Shahriar Guevara MD Re12/09/22 Status: [facility] REF Location: [facility] Disch: ----- ------- SPEC : [id number] RECD: 12/09/22-1299 STATUS: KIRIT GUADALUPE NUM: [id number] MARK: 12/09/22-[address] [facility] [address]: Shahriar Guevara MD ENTERED: 12/09/22-1320 SP TYPE: Pap Smr OT DR: Sophie Bettencourt CYBER SECURITY ANALYST ORDERED: Pap Smear Interpretation Satisfactory for evaluation. Negative for intraepithelial lesion or malignancy. HPV mRNA E6/E7: NOT DETECTED This assay detects E6/E7 viral messenger RNA (mRNA) from 14 high-risk HPV types (16, 18, 31, 33, 35, 39, 45, 51, 52, 56, 58, 59, 66, 68) HPV testing performed by [employer], [place], [place]. See reference laboratory portion of the EMR for entire report. Clinical Information LMP: 11/2022 Previous PAP test: 2019, WNL Material Received ThinPrep-Cervical Copies To: Sophie Bettencourt CYBER SECURITY ANALYST [address] [place] [address] Shahriar Guevara MD [address] [place] [address] [place] [address] ----- ------- Signed (signature on file) Hanna Bose 12/18/22 1829 ----- ------- END OF REPORT [facility] External Provider LAB CYT [facility] ORDERABLES Final Result [facility] [address] [place] [phone] [phone] * HIV 1/2 ANTIGEN/ANTIBODY,FOURTH GENERATION W/RFL [...] purpose. For additional information please refer to http://[employer]Gen[employer]/faq/AXL274 (This link is being provided for informational/ educational purposes only.) The performance of this assay has not been clinically validated in patients less than 2 years old. HIV-1/2 ANTIGEN AND ANTIBODIES, 4TH GENERATION W/ REFLEX NON-REACT MIKHAIL NON-REACT MIKHAIL [facility] Comment: HIV-1 antigen and HIV-1/HIV-2 [...] purpose. For additional information please refer to http://[employer]/faq/DZZ431 (This link is being provided for informational/ educational purposes only.) The performance of this assay has not been clinically validated in patients less than 2 years old. 09/11/2020 1:30 PM EDT us Rosa Hand NP LAB BLOOD ORDERABLES Final Resul t [facility] [address] * (ABNORMAL) HPV mRNA E6/E7 (10/11/2018 10:53 AM EST) HPV mRNA E6/E7 DETECTED (AA) NOT DETECTED [facility] Comment: This test was performed using the APTIMA(R) HPV Assay ([employer] This assay detects E6/E7 viral messenger RNA (mRNA) from 14 high-risk HPV types (16,18,31,33,35,39,45,51, 52,56,58,59,66,68). For additional information please refer to: http://education.[employer]/faq/HEC184p9 (This link is being provided for informational/ educational purposes only.) The analytical performance characteristics of this assay have been determined by [employer] [place], [place]. The modifications have not been cleared or approved by the FDA. This assay has been validated pursuant to the CLIA regulations and is used for clinical purposes. Test Performed by [facility], [employer] [facility], [address] [place], [place] An M.D., Ph.D., Director of Laboratories , CLIA [id number] Please note: Effective 07/27/2016, HPV testing will be performed using [employer] APTIMA test which targets mRNA. Detecting mRNA instead of DNA, as in older methods, offers significant improvements in specificity. 10/11/2018 10:5 3 AM EST Rosa Hand NP HISTORICAL/NON ORDERABLE LABS Fi nal Result [facility] [address] from Last 3 Months or Most Recently Relevant to Health Maintenance Insurance [facility] C3 Care Teams Law Firm Consultant Relationship Specialty Start Date End Date Barbie Joseph FNP [address] [place] [phone] PCP - General Family Medicine 07/14/24
--- OUTSIDE RECORDS SUMMARY | 2025-11-12 11:29 | XMS_ITS | Encounter Summary ---
Author Organization [employer] Address [address] [place] [address] [address] [place] [address] Care Team Providers Care Head Usher Name Role Phone Sophie Bettencourt Primary Care Provider [phone] [facility] Primary Care Provider [phone] Encounter Details Date Type Department Care Team ([facility] st Contact Info) Description 06/16/2023 Abstract [facility] [address] [place] [address] Sophie Bettencourt FNP [address] [place] [address] Social History Tobacco Use Types Packs/Day Years [...] documented as of this encounter Care Teams Head Usher Relationship Specialty Start Date End Date Sophie Bettencourt FNP [address] [place] [address] PCP - General Family Medicine 12/04/22 07/13/24 [place] FNP [address] [place] [address] PCP - General Family Medicine 07/14/24 documented as of this encounter
--- OUTSIDE RECORDS SUMMARY | 2025-11-12 11:29 | XMS_ITS | Encounter Summary ---
Author Organization [employer] Address [address] [facility] [address]t [place] [address] Care Team Providers Care Dry Cleaner Name Role Phone Sophie Bettencourt [facility] Primary Care Provider [phone] [facility] Primary Care Provider [phone] Encounter Details Date Type Department Care Team ([facility] st Contact Info) Description 12/21/2023 Abstract [facility] [address] [place] [address] Sophie Bettencourt FNP [address] [place] [address] Social History Tobacco Use Types Packs/Day Years [...] documented as of this encounter Care Teams Dry Cleaner Relationship Specialty Start Date End Date Sophie Bettencourt FNP [address] [place] [address] PCP - General Family Medicine 12/04/22 07/13/24 Barbie Joseph FNP [address] [place] [address] PCP - General Family Medicine 07/14/24 documented as of this encounter
[2025-11-12 11:33] LABS: Hemoglobin A1C 148.5685 umol/L
[2025-11-12 11:41] LABS: Cholesterol 179 mg/dL (<200); HDL Cholesterol 43 mg/dL (>40); Triglycerides 85 mg/dL (<150)
== END 2025-11-12 10:14 | disposition home or self-care (01) ==
LOC: HO.HHCL 10:13
PROVIDERS: PCP Registered Nurse; Visit Provider Registered Nurse
DX: Z00.00 Encounter for general adult medical examination without abnormal findings (principal)
CPT/HCPCS: 36415; 80061; 83036